=== PATIENT | female | born 1985 | race Caucasian/White ===

== ENCOUNTER 2021-07-04 07:26 | Emergency (ER) | payer SELFPAY ==
[2021-07-04 07:31] VITALS: BP 161/96; PULSE 84; RESP 18; TEMP 36.3; O2SAT 99
--- NOTE | 2021-07-04 07:49 | ED.GENADUL_ITS ---
Discharge Plan Disposition Patient Disposition: HOME Condition: Stable Discharge Details Clinical Impression: Methadone dependence Primary Care Provider: None,None ED Provider: Killian Enriquez Home Meds and New Rx's Prescriptions: Continued methadone 10 mg/mL Concentrate 80 mg PO DAILY RF: 0 Discharge Instructions Instructions: Methadone (By mouth) Additional Instructions: You were given your regular dose of your methadone today here after your dosing was confirmed by a dispensing nurse at the [facility] today. It is advised that you return to [place] tomorrow to resume your dosing on Tuesday. The methadone clinic advised that you may be able to be given your methadone dosing at local hospitals in [place] tomorrow. You can also return to the emergency department here tomorrow for your dosing. Return immediately to the emergency department if you develop any worsening or new concerning symptoms. Discharge Data Discharge Physician: Claudia Marx Medical Decision Making 35-year-old female with a history of opiate use in remission on methadone for the past 6 months presents with request for methadone dosing as she has missed her dose for the past 2 days. She states she went to the [facility] clinic but they sent her here. Her blood pressure is hypertensive but the remainder of her vitals are within normal limits. She appears somewhat restless but nontoxic. No acute findings on exam. Patient states she gets her methadone from the [facility] in [facility]. Will call there to confirm her dosing and if able, we will give her a dose now. She states she is returning to [place] tomorrow. May need to give her dose for home for tomorrow. Discussed with dispensing nurse Danial Underwood at the [facility]. He confirmed that patient is taking 80 mg of her methadone at their clinic and that her last dose was Sunday 07/01. We will give a dose of her 80 mg methadone now and discharge home. He advised that their clinic is closed tomorrow but open on Tuesday. She is advised that she can return here to the emergency department for dosing tomorrow or at a local hospital in [place] tomorrow. Advised to follow up with the primary care doctor for re-evaluation. Usual and customary return precautions given prior to discharge. HPI General Mode of arrival: ambulatory . Date/Time Provider Initiated Documentation: 07/04/21 07:36 . Limitations to Documentation: no limitations . Information obtained by: patient . HPI Narrative: Patient is a 35-year-old female with a previous history of opiate use in remission on methadone for the past 6 months who presents for request for methadone dosing as she has not had her dose for 2 days. Patient is from [place] and in the methadone clinic there. She states she had an unplanned trip here and missed her dose yesterday and today. She states since she has missed her dosing, she has felt shaking, on easiness, diarrhea, decreased appetite consistent with when she has missed her methadone dosing in the past before. She denies any other new medication, fever, chest pain, shortness of breath, abdominal pain or vomiting. She denies any other current drug use. Related Data Home Medications Medication Instructions Recorded Confirmed methadone 80 mg PO DAILY 07/04/21 07/04/21 Allergies Allergy/AdvReac Type Severity Reaction Status Date / Time No Known Allergies Allergy Unverified 07/04/21 07:36 General Stated Complaint: GenMedical MICHELLE: 4 Review of Systems All systems reviewed & are unremarkable except as noted in HPI and below Constitutional Constitutional: Reports as per HPI, Denies chills and Denies fever(s) Comments: Shakiness Eyes Eyes: Denies blurry vision ENT Ears, Nose, Mouth, and Throat: Denies dizziness, Denies sore throat and Denies throat swelling Cardiovascular Cardiovascular: Denies chest pain and Denies dyspnea Respiratory Respiratory: Denies cough and Denies dyspnea Gastrointestinal Gastrointestinal: Denies abdominal pain, Reports diarrhea and Denies vomiting Genitourinary Genitourinary: Denies hematuria and Denies dysuria Musculoskeletal Musculoskeletal: Denies back pain and Denies numbness Integumentary/Breasts Skin/Breast: Denies lesions and Denies rash Neurologic Neurologic: Denies dizziness, Denies localized weakness and Denies numbness Allergic/Immunologic Allergic/Immunologic: Denies throat swelling [facility] Medical History (Updated 07/04/21 @ 07:56 by Claudia Marx DO) Methadone dependence Narcotic abuse in remission Surgical History (Updated 07/04/21 @ 07:50 by Claudia Marx DO) No significant past surgical history Social History Smoking/Tobacco Use Status: Current every day Tobacco Type: cigarettes Smoking risk assessment performed?: Yes Alcohol Intake: current Alcohol Intake frequency: a few times a month Drug use: Occasionally Substance use type: marijuana Details: in a methadone program Exam Const General: cooperative and no acute distress Orientation: alert, awake and oriented x3 HENMT Head: normal to inspection Face and sinus: normal facial exam Eyes General: appearance normal, both eyes and all related structures Pupils: PERRL EOM: EOM intact bilaterally Neck Neck: normal visual inspection and No submandibular swelling Lymphatic: no lymphadenopathy noted Chest Chest: normal inspection of the chest and no tenderness Resp Effort & Inspection: normal respiratory effort and able to speak in complete sentences Auscultation: clear to auscultation bilaterally Cardio Rate: regular rate Rhythm: regular rhythm GI Inspection: normal to inspection Palpation: soft, not firm, not rigid and nontender Auscultation: normal bowel sounds Skin General skin exam: no rashes or lesions noted Neuro General: patient alert, patient awake and patient oriented x3 Cognition: normal cognition Speech: speech normal Motor: muscle tone normal throughout Sensory Exam: no sensory deficits noted Extrem General: normal to inspection, full ROM, capillary refill normal, no calf tenderness bilaterally and no edema Psych Appearance: grossly normal Mental Status: mental status grossly normal Speech and Movement: speech and movement normal Affect: normal affect Course Vital Signs Vital signs: Vital Signs Temperature 97.3 F L 07/04/21 07:31 Pulse 84 07/04/21 07:31 Respiratory Rate 18 07/04/21 07:31 Blood Pressure 161/96 H 07/04/21 07:31 Pulse Oximetry 99 07/04/21 07:31 Temperature 97.3 F L 07/04/21 07:31 Temperature Source Temporal Artery Scan 07/04/21 07:31 Pulse 84 07/04/21 07:31 Respiratory Rate 18 07/04/21 07:31 Respiratory Effort Non-Labored 07/04/21 07:34 Respiratory Pattern Normal 07/04/21 07:46 Blood Pressure 161/96 H 07/04/21 07:31 Pulse Oximetry 99 07/04/21 07:31 Oxygen Delivery Method Room Air 07/04/21 07:31 Oxygen Flow Rate 0 07/04/21 07:31 Sign Out Sign Out Data: Sign Out Comment: Discussed with [facility] in [place] to confirm patient's methadone dosing. If able to confirm her dosing, will order a dose for now and potentially for tomorrow if needed. If unable to confirm her dosing, will plan for discharge home for her to resume her dosing in [place] when possible. Last updated by Claudia Marx DO at 07/04/21 07:57
--- NOTE | 2021-07-04 08:11 | NUR.NOTE ---
Addendum entered by Danial Riley 07/04/21 08:13: at the phone number [phone] Original Note: i called [facility] [place] to nubia teran ed Nursing Note:
--- OUTSIDE RECORDS SUMMARY | 2021-07-04 08:12 | XMS_ITS | Encounter Summary ---
:1985 Author Organization [facility] Address [address] [place] [id number] Care Team Providers Name Role Phone Katheryn Miles APRN Primary Care Provider [phone] Encounter Details Date Type Department Care Team Description 06/19/2021 Travel Social History Tobacco Use Types Packs/Day Years Used Date Current Every Day Smoker Cigarettes 1 Smokeless Tobacco: Current User Alcohol Use Standard Drinks/Week Comments Yes 0 (1 standard drink = 0.6 oz pure alcoho l) occasional Alcohol Habits Answer Date Recorded How often do you have a drink containing alcohol? Monthly or less 11/29/2019 How many drinks containing alcohol do you have on a Not aske d typical day when you are drinking? How often do you have six or more drinks on one Not asked occasion? Sex Assigned at Date Recorded Not on file COVID-19 Exposure Response Date Recorded In the last month, have you been in contact with No / Unsure 06/19/2021 6:33 PM EDT someone who was confirmed or suspected to have Coronavirus / COVID-19? documented as of this encounter Plan of Treatment Upcoming Encounters Date Type Specialty Care Team Description 07/08/2021 Appointment Behavioral Health Francisco Torres, MS W documented as of this encounter Visit Diagnoses Not on filedocumented in this encounter Care Teams Bulk Station Operator Relationship Specialty Start Date End Date Katheryn Miles APRN PCP - General 05/30/19 [place] [address] documented as of this encounter
--- OUTSIDE RECORDS SUMMARY | 2021-07-04 08:12 | XMS_ITS | Encounter Summary ---
:1985 Author Organization [facility] Address [address] [place] [phone] Care Team Providers Name Role Phone Katheryn Miles APRN Primary Care Provider [phone] Reason for Visit Reason Comments Appointment Encounter Details Date Type Department Care Team Description 07/02/2021 Telephone [facility] Martha Jones APRN Appointment Rehabilitation at [address] [place] [id number] [facility] [place] [address] [phone] Social History Tobacco Use Types Packs/Day Years [...] / COVID-19? documented as of this encounter Miscellaneous Notes Telephone Encounter - Patricia Olivera - 07/02/2021 10:18 AM EDT 10:00am 9/2/21 video visit with Martha Jones APRN -RT middle finger abscess, hospital f/u Multiple calls were placed to the pt on the morning of her appointment- phone did not ring except onthe last attempt at 10:03am- I was unable to leave a msg because her mailbox was full. 10:15am- no show documented in this encounter Plan of Treatment Upcoming Encounters Date Type Specialty Care Team Description 07/08/2021 Appointment Behavioral Health Francisco Torres, MS W documented as of this encounter Visit Diagnoses Not on filedocumented in this encounter Additional Health Concerns Infection Onset Date Last Indicated Resolved Time MRSAComment: Body fluid 06/20/21 06/20/2021 06/22/2021 documented as of this encounter Care Teams National Insurance Officer Relationship Specialty Start Date End Date Katheryn Miles APRN PCP - General 05/30/19 [facility] [place] [phone] documented as of this encounter
--- OUTSIDE RECORDS SUMMARY | 2021-07-04 08:12 | XMS_ITS | Encounter Summary ---
:1985 Author Organization [facility] Address [address] [place] [address] Care Team Providers Name Role Phone Katheryn Miles APRN Primary Care Provider [phone] Encounter Details Date Type Department Care Team Description 01/09/2021 Hospital Encounter ANSCIARA METHADONE Erin Torres ine use disorder, moderate, dependence (HC Code) (Primary Dx); MAINTENANCE CAMRYN Singh Substance or medication-eleuterio andrew depressive disorder (HC Code); [address] [facility] Opioid use disorder, severe, dependence (HC Code); [place] [address] PTSD (post-traumatic stress disorder) [phone] Social History Tobacco Use Types Packs/Day Years [...] Assigned at Date Recorded Not on file documented as of this encounter Medications at Time of Discharge Medication Sig Dispensed Refills Start Date End Date buprenorphine-naloxone Place 1 Film under the 42 Film 0 0 11/21/2020 (SUBOXONE) 8-2 mg per tongue 2 (two) times sublingual daily. filmIndications: Opiate dependence, continuous (HC Code) buPROPion XL (WELLBUTRIN Take 1 tablet (300 mg 30 tablet 0 11/21/2020 XL) 300 mg 24 hr tablet total) by mouth every morning. fenofibric acid - Take 1 capsule (135 mg 90 capsule 0 2019 choline (TRILIPIX) 135 total) by mouth daily. mg capsule naloxone (NARCAN) 4 Use 1 spray in 1 2 each 1 12/10/2020 mg/actuation nasal spray nostril for suspected opioid overdose. May repeat in 2 minutes in other nostril with new device if minimal or no response. traZODone (DESYREL) 50 1-2 tabs at HS PRN 60 tablet 0 10/10 mg tablet insomnia documented as of this encounter Progress Notes Francisco Torres, VENEER LATHE OPERATOR - 01/09/2021 3:08 PM EST [facility] ??? Adult Outpatient Behavioral Health PROGRESS NOTE Client Name: Shakila Grove Date: 01/09/2021 Date of : 1985 Level of Care: Outpatient Length of Service: 16 mins Start Time: 1:45 pm Stop Time: 2:01 pm Type of Contact: Individual Therapy Clinician Assigned to Case: Francisco Torres LMSW Chief Complaint: Things are shifting. I haven't smoked crack in 2 weeks Presenting Problems: Client is a 33 year old, single, female living in [place], [place]. Client's chief complaint when[facility] to [facility] was I just want to stay clean and not back pedal into my use. Client reports past depressive symptoms ranging from: depressed mood, lack of interest and pleasure in activities, decreased concertation, and extreme fatigue. Client and typewriter operator automatic spoke for counseling session.She was brighter and more engaged during today's session. She is maintained on 55 mg MTD QD which she reports is comfotable, She reports not using opiatesin 2 days and has abstained from Crack for 2 weeks. UTOX upon admission and on 12/26/2020 was + for THC, MTD, OPI, & LIZZETH. Taffy Candy Maker utilized ID techniques to explore thoughts and feelings and illicit motivation for change. She discussed starting new job on Tuesday and is hopeful for the opportunity. She is still pending a referral to [facility] virtual groups for additional supports. ID techniques were usedto discuss relapse prevention techniques including personal boundaries and crafting. She reports sleeping all day, low mood, no energy. She discontinued all psych meds in October 2020 and is ambivalent about rescheduling future appointments. She denies any SI/HI/AH/VH. Mental Status Exam Attention: normal Comments: Level of Consciousness: normal Comments: Appearance: appropriately dressed Comments: Orientation: oriented to [id number] Comments: Memory Immediate memory: intact Recent memory: intact Remote memory: intact Comments: Cognition General intellect: average Abstraction: intact Visual spatial/Executive function: normal Comments: Cognitive Screens performed: Behavior: cooperative Comments: Impulse Control: good Comments: Mood: euthymic Comments: Affect: appropriate for situation Comments: Suicidality Patient admits to: Patient denies: thoughts of suicide,family history of suicide,plans for suicide,access to weapons,preoccupation with ,suicide gesture(s),suicide attempt(s) Comments: Homicidality Patient admits to: Patient denies: thoughts to harm others,having harmed others,threats to harm others,access to weapons,plans to harm others,attempts to harm others,feeling like killing someone Comments: Speech: fluent Comments: Language: adequate receptive Reading impairment: Writing impairment: Comments: Thought Process: coherent Comments: Thought Content: appropriate for situation Comments: Perception: no perceptual impairment Comments: Insight / Judgment Insight: age appropriate Judgment: mild Comments: Substance Disorder Progress Client denies substance use: no Level of Care: Outpatient (1.1) Date of last Urine Drug Screen (UDS): 01/15/2020 UDS Results: + bup, marijauana, Current signs and symptoms of Alcohol/Benzodiazepine/Barbiturate withdrawal: none Current signs and symptoms of Opioid withdrawal: none Substance abuse urges/cravings: no If yes, explain: Has client attended any self-help or substance use disorder groups since their last visit: yes Last date of illicit/non-prescribed drug/alcohol use: 11/16/2019 Drug classification: Opiates- heroin Stage of Change: contemplative Assessment and Plan Problem List ICD-10-CM 09/07/19 [facility] Opioid use disorder, severe, dependence (HC Code) F11.20 Cocaine use disorder, moderate, dependence (HC Code) 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 Psycho education provided about the risks and dangers of continued substance use including overdose and . Plan: Will benefit from daily MTD dosing, 2-4 X a month individual counseling utilizing ID and CBT techniques, continued assessment to determine the appropriateness of medication management, and coordinationof care with primary care as needed. Family Involvement: None Problem #2: r/u Bipolar r/u PTSD Area of Focus: Depression Assessment: Client reports she discontinued psychiatric medications. She denied any SI/HI/AH/VH and is not an imminent risk to herself or others. Plan: Client will meet with this typewriter operator automatic 1x weekly for individual tele counseling and biweekly med management with Suresh Baeza MD. Family Involvement: None Problem #3: Area of Focus: Assessment: Plan: Family Involvement: Problem #4: Area of Focus: Assessment: Plan: Family Involvement: Problem #5: Area of Focus: Assessment: Plan: Family Involvement: Problem #6: Area of Focus: Assessment: Plan: Family Involvement: documented in this encounter Plan of Treatment Upcoming Encounters Date Type Specialty Care Team Description 07/08/2021 Appointment Behavioral Health Francisco Torres, MS W documented as of this encounter Visit Diagnoses Diagnosis Cocaine use disorder, moderate, dependen ce (HC Code) - Primary Substance or medication-induced depressi ve disorder (HC Code) Opioid use disorder, severe, dependence (HC Code) PTSD (post-traumatic stress disorder) Posttraumatic stress disorder documented in this encounter Care Teams Business Applications Manager Relationship Specialty Start Date End Date Katheryn Miles APRN PCP - General 05/30/19 [place] [phone] documented as of this encounter
--- OUTSIDE RECORDS SUMMARY | 2021-07-04 08:12 | XMS_ITS | Encounter Summary ---
:1985 Author Organization [facility] Address [address] [place] [address] Care Team Providers Name Role Phone Katheryn Miles APRN Primary Care Provider [phone] Encounter Details Date Type Department Care Team Description 04/17/2021 Orders Only REX METHADONE Mike, Opioid typ e MAINTENANCE LEODAN Romano dependence, continuous [address] (HC Code) (Primary Dx) [place] [address] [place], [place] [phone] [id number] Social History Tobacco Use Types Packs/Day Years [...] on file documented as of this encounter Plan of Treatment Upcoming Encounters Date Type Specialty Care Team Description 07/08/2021 Appointment Behavioral Health Francisco Torres MS W documented as of this encounter Procedures Procedure Name Priority Date/Time Associated Diagnosis Comme nts TB SKIN TEST Routine 04/17/2021 9:52 AM Opioid type Results for this EDT dependence, procedure are i n the continuous (HC Code) results section. documented in this encounter Results TB Skin Test (04/17/2021 9:52 AM EDT) Pathologist Sig nature TB Skin Test Negative Negative [facility] Induration 0 mm [facility] Specimen Other Narrative This result has an attachment that is no t available. Performing Organization Address City/State/ZIP Code Phon e Number [facility] [place], [place], [facility] documented in this encounter Visit Diagnoses Diagnosis Opioid type dependence, continuous (HC C ode) - Primary Opioid type dependence, continuous documented in this encounter Care Teams Supervisor Pit [employer] Auxiliaries Relationship Specialty Start Date End Date Katheryn Miles APRN PCP - General 05/30/19 [address] [place] [phone] documented as of this encounter
--- OUTSIDE RECORDS SUMMARY | 2021-07-04 08:12 | XMS_ITS | Encounter Summary ---
:1985 Author Organization [facility] Address [address] [place] [address] Care Team Providers Name Role Phone Katheryn Miles APRN Primary Care Provider [phone] Encounter Details Date Type Department Care Team Description 03/24/2021 Scanned Document [facility] Franci Wagner MD [facility] [address] [facility] [address] [place] [phone] (Wo rk) Social History Tobacco Use Types Packs/Day Years [...] Name Priority Date/Time Associated Diagnosis Comme nts LAB SCAN Routine 03/23/2021 documented in this encounter Results Lab Scan (03/23/2021) Narrative This result has an attachment that is no t available. documented in this encounter Visit Diagnoses Not on filedocumented in this encounter Additional Health Concerns Infection Onset Date Last Indicated Resolved Time R/O COVID-19 06/20/2021 06/20/2021 06/20/2021 5:06 AM EDT MRSAComment: Body fluid 06/20/21 06/20/2021 06/22/2021 documented as of this encounter Care Teams Package Sealer Relationship Specialty Start Date End Date Katheryn Miles APRN PCP - General 05/30/19 [facility] [place] [phone] documented as of this encounter
--- OUTSIDE RECORDS SUMMARY | 2021-07-04 08:12 | XMS_ITS | Encounter Summary ---
:1985 Author Organization [facility] Address [address] [place] [address] Care Team Providers Name Role Phone Katheryn Miles APRN Primary Care Provider [phone] Encounter Details Date Type Department Care Team Description 03/03/2021 Hospital Encounter ANSCIARA METHADONE Erin Torres ine use disorder, moderate, dependence (HC Code) (Primary Dx); MAINTENANCE CAMRYN Singh Substance or medication-eleuterio andrew depressive disorder (HC Code); [address] [facility] Opioid use disorder, severe, dependence (HC Code); [place] [address] PTSD (post-traumatic stress disorder) [phone] Social History Tobacco Use Types Packs/Day Years [...] as of this encounter Progress Notes Francisco oTrres, PLANT OPERATOR HELPER - 03/03/2021 4:26 PM EDT [facility] ??? Adult Outpatient Behavioral Health PROGRESS NOTE Client Name: Shakila Grove Date: 03/03/2021 Date of : 1985 Level of Care: Outpatient Length of Service: 17 mins Start Time: 3:45 pm Stop Time: 4:02 pm Type of Contact: Individual Therapy Clinician Assigned to Case: Francisco Torres LMSW Chief Complaint: I feel a lot better this week. I started thinking about my goals and things I want to achieve and Ican't do that if I keep messing up Presenting Problems: Client is a 35 year old, single, female living in [place], [place]. Telemedicine session conducted via telephone due to medical necessity as permitted through emergencytemporary expansion of telemedicine coverage outlined by [facility]/CMAP PB 2020-09 and [id number]. Patient gave verbal consent for telemedicine. Patient location: her house My location- [facility] home office This session must be conducted by telemedicine and is medically necessary given the current COVID-19outbreak and having the patient come into the clinic for a follow-up puts the patient at risk and want to encourage social distancing. Client and repairer typewriter spoke for counseling session.She is maintained on 55 mg MTD QD which she reports is comfortable. Aneesh left 2nd job because the schedule was not feasible- her attendance for dosing has improved since. She has been using sporadically throughout the week, but reports most intense cravings are for cocaine. She did endorse coping with her mother's with increased use of heroin andcrack over the last week. Review Coordinator used MD techniques to explore thoughts and feelings and identify personal values. UTOX on 02/10/2021 was + MTD and LIZZETH, 02/02/2021 was + for MTD, OPI,, and LIZZETH. She discontinued all psych meds in October 2020 and is ambivalent about rescheduling future appointments. Client agreed to weekly counseling sessions to provide additional support. She denies any SI/HI/AH/VH. 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 Psycho education provided about the risks and dangers of continued substance use including overdose and . Plan: Will benefit from daily MTD dosing, 2-4 X a month individual counseling utilizing MD and CBT techniques, continued assessment to determine the appropriateness of medication management, and coordinationof care with primary care as needed. Family Involvement: None Problem #2: r/u Bipolar r/u PTSD Area of Focus: Depression Assessment: Client reports she discontinued psychiatric medications. She denied any SI/HI/AH/VH and is not an imminent risk to herself or others. Plan: Client will meet with this repairer typewriter 1x weekly for individual tele counseling and [...] disorder documented in this encounter Care Teams Ccnp Relationship Specialty Start Date End Date Katheryn Miles APRN PCP - General 05/30/19 [facility] [place] [id number] documented as of this encounter
--- OUTSIDE RECORDS SUMMARY | 2021-07-04 08:12 | XMS_ITS | Encounter Summary ---
:1985 Author Organization [facility] Address [address] [place] [address] Care Team Providers Name Role Phone Katheryn Miles APRN Primary Care Provider [phone] Encounter Details Date Type Department Care Team Description 03/23/2021 Hospital Encounter ANSCAIRA METHADONE Erin Torres ine use disorder, moderate, dependence (HC Code) (Primary Dx); MAINTENANCE CAMRYN Singh Substance or medication-eleuterio andrew depressive disorder (HC Code); [address] [facility] Opioid use disorder, severe, dependence (HC Code); [place] [address] PTSD (post-traumatic stress disorder) [phone] Social History Tobacco Use Types Packs/Day Years [...] 135 total) by mouth daily. mg capsule methadone (DOLOPHINE) 10 Take 65 mg by mouth 0 mg/mL every 4 (four) hours solutionIndications: as needed for pain. opioid dependence Client [facility]. Current dose is 65 mg MTD QD. naloxone (NARCAN) 4 Use 1 spray in 1 2 each 1 12/10/2020 mg/actuation nasal spray nostril for suspected opioid overdose. May repeat in 2 minutes in other nostril with new device if minimal or no response. traZODone (DESYREL) 50 1-2 tabs at HS PRN 60 tablet 0 10/10 mg tablet insomnia documented as of this encounter Progress Notes Francisco Torres MSW - 03/23/2021 3:23 PM EDT [facility] ??? Adult Outpatient Behavioral Health PROGRESS NOTE Client Name: Shakila Grove Date: 03/23/2021 Date of : 1985 Level of Care: Outpatient Length of Service: 20 mins Start Time: 12:10 pm Stop Time: 12:30 pm Type of Contact: Individual Therapy Clinician Assigned to Case: Francisco Torres LMSW Chief Complaint: Things have gotten out of control Presenting Problems: Client is a 35 year old, single, female living in [place], [place]. Client and internal communications writer met in person for counseling session. Client requested assistance with getting into detox and sober home. Trimmer [employer] provided psychoed that she would not be tapered off MTD in detox. Trimmer Meat recommended focusng on dailyu attendance as well as a potential dose increase to help with urges and cravings as well as facilitating referral to Inpatient tx. Client was agreeable to this plan. She is maintained on 55 mg MTD QD. Request to increase 10 mg to 65 mg was reviewed and approved at IT. Client reports using 2-3 bundles of heroin Daily as well as crack cocaine use. She reports she lefther job at [employer] because she can no longer manage work d/t her substance use. Trimmer [employer] offered NARCANprescription, however client declined this stating she had an RX at home. She completed [facility], and [facility] inpatient tx. Trimmer Meat will f/u with referrals and encourage client to comlete screenings as needed. UTOX on 03/09/2021 & 03/23/2021 was + for MTD and OPI. UTOX on was + MTD and LIZZETH, 02/02/2021 was + for MTD, OPI,, and LIZZETH. She discontinued all psych meds in October 2020 and is ambivalent about rescheduling future appointments. Client agreed to weekly counseling sessions to provide additional support. She denies any SI/HI/AH/VH. 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 Psycho education provided about the risks and dangers of continued substance use including overdose and . Plan: Will benefit from daily MTD dosing, 2-4 X a month individual counseling utilizing [facility] and CBT techniques, continued assessment to determine the appropriateness of medication management, and coordinationof care with primary care as needed. Family Involvement: None Problem #2: r/u Bipolar r/u PTSD Area of Focus: Depression Assessment: Client reports she discontinued psychiatric medications. She denied any SI/HI/AH/VH and is not an imminent risk to herself or others. Plan: Client will meet with this internal communications writer 1x weekly for individual tele counseling and [...] documented in this encounter Care Teams Business English Instructor Relationship Specialty Start Date End Date Katheryn Miles APRN PCP - General 05/30/19 [address] [place] [id number] documented as of this encounter
--- OUTSIDE RECORDS SUMMARY | 2021-07-04 08:12 | XMS_ITS | Encounter Summary ---
:1985 Author Organization [facility] Address [address] [place] [address] Care Team Providers Name Role Phone Katheryn Miles TOLU Primary Care Provider [phone] Reason for Visit Reason Comments Finger Swelling Finger Pain Knee Pain Cellulitis Pruritus Auth/Cert Specialty Diagnoses / Procedures Referred By Contact Refer red To Contact Surgery Diagnoses Abscess of finger of right hand Abcess in finger [facility] Ep 77 Surgery [address] [place], [place] [address] Phone: Referral ID Status Reason Start Date Expiration Date Visits Requ ested Visits Authorized [id number] 1 1 Encounter Details Date Type Department Care Team Description 06/19/2021 - Hospital Encounter EP 77 SURGERY Francisco Spencer, DO [address] [place] [id number] Abscess of finger 06/25/[address] [place] [address] Suresh Berg MD [address] [place] [id number] [place] [address] Darren Lou MD [facility] [address] [place] [phone] (Primary Dx) [phone] Social History Tobacco Use Types Packs/Day Years [...] / COVID-19? documented as of this encounter Last Filed Vital Signs Vital Sign Reading Time Taken Comments Blood Pressure 128/80 06/25/2021 8:45 AM EDT Pulse 60 06/25/2021 8:45 AM EDT Temperature 36.7 ??C (98 ??F) 06/25/2021 8:45 AM EDT Respiratory Rate 18 06/25/2021 8:45 AM EDT Oxygen Saturation 99% 06/25/2021 8:45 AM EDT Inhaled Oxygen Concentration - - Weight 81.6 kg (180 lb) 06/20/2021 4:54 PM EDT Height 160 cm (5' 3) 06/20/2021 4:54 PM EDT Body Mass Index 31.89 06/20/2021 4:54 PM EDT documented in this encounter Discharge Summaries Spenser Gutierrez PA - 06/25/2021 9:26 AM EDT Images from the original note were not included. [facility] Med/Surg Discharge Summary Patient Data: Patient Name: Shakila Grove Admit date: 06/19/2021 Age: 35 y.o. Discharge date: 06/25/2021 : 1985 Discharge Attending Physician: Darren Lou* Discharged Condition: stable PCP: Katheryn Miles APRN Disposition: Home Principal Diagnosis: Abscess of finger of right hand Issues to be Addressed Post Discharge: Issues to be Addressed Post Discharge: 1. Follow up with Dr. Lou 2. Continue Bactrim DS as directed 3. Continue to f/u methadone clinic 4. Continue dressing changes TID Pending Labs and Tests: Pending Lab Results Order Current Status Body fluid culture Preliminary result Body fluid culture Preliminary result Deep wound culture ([facility]) Preliminary result Follow-up Information: No follow-up provider specified. Future Appointments Date Time Provider Department Center 07/01/2021 11:30 AM Francisco Torres MSW [facility] Hospital Course: Hospital Course: Patient is a 35 y.o. female who was admitted to [facility] on 06/19/21 for concerns of Rlong finger abscess requiring bedside I&D. Initially given IV Vanco/Zosyn for broad spectrum coverage. Cx grew MRSA and ID consulted and advised to change to Bactrim DS on 06/23 only. Surgeon: Darren Lin* Date of Surgery: none Intra-Op Complications: n/a Acute events in the during the hospital stay: none Consults: (Consulting physician, problem, recs, f/u info) Social work for methadone hx use and advised to re-establish [facility] clinic f/u ID - see above Bladder Function Concerns: voiding DVT Prophylaxis: (Medication, duration, lab monitoring) LVX in house Home Medication Changes: (with explanation) none Weight Bearing Status: WBAT To RUE Pertinent lab findings and test results: Objective: Recent Labs Lab 06/21/21 0539 06/22/21 0043 06/23/21 0500 WBC 7.4 7.9 8.7 HGB 13.3 13.6 13.7 HCT 41.6 41.2 40.4 PLT 198 204 222 Recent Labs Lab 06/21/21 0539 06/22/21 0043 06/23/21 0500 NEUTROPHILS 56.7 63.2 61.2 Recent Labs Lab 06/21/21 0539 06/22/21 0043 06/23/21 0459 NA 141 139 141 K 4.4 4.0 4.1 CL 108* 105 106 CO2 23 23 23 BUN 10 7 10 CREATININE 0.76 0.64 0.57 GLU 100 84 92 ANIONGAP 10 11 12 Recent Labs Lab 06/21/21 0539 06/22/21 0043 06/23/21 0459 CALCIUM 8.7* 8.9 8.9 No results for input(s): ALT, AST, ALKPHOS, BILITOT, BILIDIR in the last 168 hours. Recent Labs Lab 06/20/21 0257 PTT 25.0 LABPROT 10.1 INR 0.93 Culture Information: No results for input(s): LABBLOO, LABURIN, LOWERRESPIRA in the last 168 hours. Imaging: Imaging results last 24h: No results found. Diet: Regular diet Mobility: Highest Level of mobility - ACTUAL: Mobillty Level 1, Lying in bed , AM PAC < 6 PT Disposition Recommendation: Physical Exam Discharge vitals: Temp: [97.6 ??F (36.4 ??C)-98.6 ??F (37 ??C)] 98 ??F (36.7 ??C) Pulse: [47-66] 47 Resp: [16-18] 18 BP: (102-135)/(62-87) 102/65 SpO2: [96 %-100 %] 96 % Device (Oxygen Therapy): room air Pertinent Findings of Physical Exam: Unremarkable Cognitive Status at Discharge: Baseline Alert and Oriented x 3 Discharge Physical Exam: Physical Exam Seen and evaluated on day of discharge Allergies No Known Allergies PMH PSH Past Medical History: Diagnosis Date ??? Anxiety ??? Bipolar disorder (HC Code) ??? Violent behavior No past surgical history on file. Social History Family History Social History Tobacco Use ??? Smoking status: Current Every Day Smoker Packs/day: 1.00 Types: Cigarettes ??? Smokeless tobacco: Current User Substance Use Topics ??? Alcohol use: Yes Comment: occasional Family History Problem Relation Age of Onset ??? Depression Mother ??? Bipolar disorder Mother ??? Drug abuse Sister Discharge Medications: Discharge: Current Discharge Medication List START taking these medications Details acetaminophen (TYLENOL) 325 mg tablet Take 3 tablets (975 mg total) by mouth every 6 (six) hours for7 days. Qty: 84 tablet, Refills: 0 Start date: 06/25/2021, End date: 07/02/2021 sulfamethoxazole-trimethoprim (BACTRIM DS;CO-TRIMOXAZOLE DS) 800-160 mg per tablet Take 1 tablet by mouth every 12 (twelve) hours for 8 days. Qty: 16 tablet, Refills: 0 Start date: 06/25/2021, End date: 07/03/2021 CONTINUE these medications which have NOT CHANGED Details buprenorphine-naloxone (SUBOXONE) 8-2 mg per sublingual film Place 1 Film under the tongue 2 (two) times daily. Qty: 42 Film, Refills: 0 Associated Diagnoses: Opiate dependence, continuous (HC Code) buPROPion XL (WELLBUTRIN XL) 300 mg 24 hr tablet Take 1 tablet (300 mg total) by mouth every morning. Qty: 30 tablet, Refills: 0 fenofibric acid - choline (TRILIPIX) 135 mg capsule Take 1 capsule (135 mg total) by mouth daily. Qty: 90 capsule, Refills: 0 methadone (DOLOPHINE) 10 mg/mL solution Take 65 mg by mouth every 4 (four) hours as needed for pain.Client is engaged with [facility] for treatment of OUD. Current dose is 65 mg MTD QD. naloxone (NARCAN) 4 mg/actuation nasal spray Use 1 spray in 1 nostril for suspected opioid overdose.May repeat in 2 minutes in other nostril with new device if minimal or no response. Qty: 2 each, Refills: 1 traZODone (DESYREL) 50 mg tablet 1-2 tabs at HS PRN insomnia Qty: 60 tablet, Refills: 0 Electronically Signed: Electronically signed by STACEY Lim June 25, 2021 [facility] [id number] Work Associated attestation - Darren Lou MD - 06/25/2021 2:55 PM EDT documented in this encounter Discharge Instructions InstructionsSchSpenser chiu PA - 06/25/2021 Images from the original note were not included. [facility]TH[facility]EDICS [facility] REHABIL[facility]ATION Discharge Instructions Follow up: Please follow up with [facility] follow up on 07/02 @ 10:00 am. Call [phone] withquestions. General questions: Please call if there are any questions or concerns. If you develop worsening pain, redness, numbness, weakness, coolness, bleeding, or swelling to surgical site or extremity, call our office. Call our office if you have a fever. Do not hesitate to go to the ER if you are concerned. Pain management: Please take tylenol every 6 hours as needed for pain. Do not drink alcohol when taking tylenol. Elevation of the affected extremity and ice are effective in reducing pain. Continue your methadone clinic appointments and prescriptions. Wound Care: Continue betadine/saline soaks three times a day until Tuesday Continue Bactrim as prescribed for the full course Bathing: You may shower if able to provide a water tight seal above dressing with a shower type bag.Otherwise, sponge bathe for now. Once the dressing is removed, you may shower normally. Do not scrubthe wound. Do not put any cream, lotion or ointment on incision(s). Do not soak wound (no swimming). Post-operative care: You may continue ice to operative site as needed. Continue elevation of right upper extremity as directed when in bed or chair to prevent swelling and reduce pain. Activity: You should remain weightbearing of the right upper extremity. Use assistive devices as directed as needed. Diet: You are able to resume your normal diet. We encourage plenty of fluids and protein post-operatively. Future Appointments Date Time Provider Department Center 07/01/2021 11:30 AM Francisco Torres MSW [facility] documented in this encounter Medications at Time of Discharge Medication Sig Dispensed Refills Start Date End Date buprenorphine-naloxone Place 1 Film under 42 Film 0 11/21 (SUBOXONE) 8-2 mg per the tongue 2 (two) sublingual times daily. filmIndications: Opiate dependence, continuous (HC Code) buPROPion XL (WELLBUTRIN Take 1 tablet (300 30 tablet 0 XL) 300 mg 24 hr tablet mg total) by mouth every morning. fenofibric acid - Take 1 capsule (135 90 capsule 0 0 choline (TRILIPIX) 135 mg total) by mouth mg capsule daily. methadone (DOLOPHINE) 10 Take 65 mg by mouth 0 mg/mL every 4 (four) hours solutionIndications: as needed for pain. opioid dependence Client is engaged with [facility] for treatment of OUD. Current dose is 65 mg MTD QD. naloxone (NARCAN) 4 Use 1 spray in 1 2 each 1 12/10/2020 mg/actuation nasal spray nostril for suspected opioid overdose. May repeat in 2 minutes in other nostril with new device if minimal or no response. traZODone (DESYREL) 50 1-2 tabs at HS PRN 60 tablet 0 10/10 mg tablet insomnia acetaminophen (TYLENOL) Take 3 tablets (975 84 tablet 0 07/02/2021 325 mg tablet mg total) by mouth every 6 (six) hours for 7 days. sulfamethoxazole-trimeth Take 1 tablet by 16 tablet 0 06/2507/03/2021 oprim (BACTRIM mouth every 12 DS;CO-TRIMOXAZOLE DS) (twelve) hours for 8 800-160 mg per tablet days. documented as of this encounter Progress Notes David Cazares MD - 06/25/2021 8:30 AM EDT [facility] Orthopedic HAND Progress Note Attending Provider: Darren Lou MD Injury and Date: Right long finger abscess Operative Course: Emergency room irrigation and debridement on 06/20/21 Repeat I&D R middle finger on 06/21/21 Repeat I&D R middle finger on 06/22/21 Subjective: Interim History: No events overnight, afebrile. Pain controlled. Continuing soaks. Patient reports that her finger range of motion appears better this morning. Objective: Vitals: Temp: [97.7 ??F (36.5 ??C)-98.6 ??F (37 ??C)] 98 ??F (36.7 ??C) Pulse: [47-66] 47 Resp: [18] 18 BP: (102-135)/(65-87) 102/65 SpO2: [96 %-100 %] 96 % Device (Oxygen Therapy): room air Physical Exam RUE: Dressing and packing taken down - fibrinous tissue noted. Minimal erythema. No expressed purulence. Patient left in iodine soak Sensation intact Able to flex thumb IP, index DIP, and abduct fingers Fingers WWP Able to passively flex middle finger almost to palm Labs: Lab Results Component Value Date/Time WBC 8.7 06/23/2021 05:00 AM HCT 40.4 06/23/2021 05:00 AM HCT 42.2 12/10/2020 10:42 AM CREATININE 0.57 06/23/2021 04:59 AM PTT 25.0 06/20/2021 02:57 AM INR 0.93 06/20/2021 02:57 AM CALCIUM 8.9 06/23/2021 04:59 AM Diagnostics: Radiographs of the right hand were reviewed which demonstrated obvious soft tissue swelling without any evidence of osseous involvement Micro: Culture from 06/20 growing Staph Aureus Culture from 06/22/21 growing Staph Aureus Assessment: Shakila Grove is a 35 y.o. female s/p bedside I&D of her right long finger on 06/19/21, 06/21/21, and 06/22/21. Plan: - Continue betadine/saline soaks TID as per nursing communication order. No packing required - Weight Bearing: as tolerated - Antibiotics: Bactrim DS BID x10d startin 06/24/21, ending 07/03/21 - DVT Prophylaxis: no chemical prophylaxis, SCD's, mobilization - Diet: Regular diet. - Patient encouraged to continue finger range of motion exercises - Dispo: home today, follow up with Martha Jones in 1 wk David Cazares MD Orthopaedic Surgery Orthopedic Hand Team Contact Information [facility]: -Weekday Floor Pager: -Nights/Weekends: Please check AMION for floor provider SRC: -Ortho Joints/Fracture Dynamic Role: avid Hope MD - 06/24/2021 8:52 AM EDT Images from the original note were not included. [facility] Orthopedic HAND Progress Note Attending Provider: Darren Lou MD Injury and Date: Right long finger abscess Operative Course: Emergency room irrigation and debridement on 06/20/21 Repeat I&D R middle finger on 06/21/21 Repeat I&D R middle finger on 06/22/21 Subjective: Interim History: No events overnight, afebrile. Pain controlled. Continues TID soaks. ID recommendations appreciated, plan to switch to PO bactrim today Objective: Vitals: Temp: [97.5 ??F (36.4 ??C)-97.9 ??F (36.6 ??C)] 97.6 ??F (36.4 ??C) Pulse: [55-63] 62 Resp: [16-18] 16 BP: (109-134)/(62-82) 109/62 SpO2: [98 %-100 %] 99 % Device (Oxygen Therapy): room air Physical Exam RUE: Dressing and packing taken down - fibrinous tissue noted. Improved erythema. No expressed purulence. Wound re-packed Sensation intact Able to flex thumb IP, index DIP, and abduct fingers Fingers WWP Unable to flex middle finger DIP 2/2 pain/swelling Labs: Lab Results Component Value Date/Time WBC 8.7 06/23/2021 05:00 AM HCT 40.4 06/23/2021 05:00 AM HCT 42.2 12/10/2020 10:42 AM CREATININE 0.57 06/23/2021 04:59 AM PTT 25.0 06/20/2021 02:57 AM INR 0.93 06/20/2021 02:57 AM CALCIUM 8.9 06/23/2021 04:59 AM Diagnostics: Radiographs of the right hand were reviewed which demonstrated obvious soft tissue swelling without any evidence of osseous involvement Micro: Culture from 06/20 growing Staph Aureus Culture from 06/22/21 growing Staph Aureus Assessment: Shakila Grove is a 35 y.o. female s/p bedside I&D of her right long finger on 06/19/21, 06/21/21, and 06/22/21. Plan: - Continue betadine/saline soaks TID as per nursing communication order. Dressing change with 1/4 iodoform packing. - Weight Bearing: as tolerated - Antibiotics: Bactrim DS BID x10d startin 06/24/21, ending 07/03/21 - DVT Prophylaxis: no chemical prophylaxis, SCD's, mobilization - Diet: Regular diet. - Patient encouraged to continue finger range of motion exercises - Dispo pending continued clinical improvement on oral abx, and resumption of outpt methadone David Cazares MD Orthopaedic Surgery Orthopedic Hand Team Contact Information [facility]: -Weekday Floor Pager: -Nights/Weekends: Please check AMION for floor provider SRC: -Ortho Joints/Fracture Dynamic Role: Ray catherine MD - 06/23/2021 8:46 AM EDT Images from the original note were not included. INFECTIOUS DISEASES INPATIENT PROGRESS NOTE Patient's name:Shakila Grove [id number] Referring provider: Attending Provider: Darren Lou MD [phone] Date Admitted: 06/19/2021 Today's date: 06/23/2021 Subjective / Recent Events: -Remains afebrile, WBC wnl -Yesterday ID team able to express more puss from wound and later in the evening ortho team also didfurther bedside I&D -Reports finger feels slightly better today, no other systemic complaints Antimicrobials: Vanc 06/19 - present Zosyn 06/19 - 06/20 Past Medical History, Family History, Social History , Immunization, Allergies: have all been reviewed and remains unchanged Physical Examination: Vitals: 06/23/21 0757 BP: 99/62 Pulse: (!) 52 Resp: 18 Temp: 98 ??F (36.7 ??C) Temp (24hrs), Av.1 ??F (36.7 ??C), Min:97.9 ??F (36.6 ??C), Max:98.4 ??F (36.9 ??C) General: no distress, resting comfortably in room HEENT: NC/AT, PERRL, EOMI, MMM CV: RRR, no m/r/g Pulm: breathing comfortably on RA Abd: soft, non-tender, non-distended Ext: no edema, warm and well perfused Skin: R third finger with lesion on medial side of finger between DIP and PIP joint with packing in place and improvement in surrounding erythema and swelling compared to yesterday (see chart images aswell). R knee 1.5cm diameter lesion with whitish coloration of skin centrally and mild surrounding erythema tender to palpation now with small amount of purulent drainage today. Neuro: A&O x 3, no focal deficits noted Laboratory tests: Lab Results Component Value Date WBC 8.7 06/23/2021 HGB 13.7 06/23/2021 HCT 40.4 06/23/2021 MCV 88.4 06/23/2021 PLT 222 06/23/2021 Lab Results Component Value Date CREATININE 0.57 06/23/2021 BUN 10 06/23/2021 NA 141 06/23/2021 K 4.1 06/23/2021 CL 106 06/23/2021 CO2 23 06/23/2021 Estimated Creatinine Clearance: 95 mL/min (by C-G formula based on SCr of 0.57 mg/dL). Lab Results Component Value Date ALT 17 12/10/2020 AST 12 12/10/2020 ALKPHOS 66 12/10/2020 BILITOT 0.3 12/10/2020 Microbiology: Body fluid/deep wound cultures 06/22 I&D Gram stain 3+ WBC, 2+ GPC in clusters, cx pending 06/20 I&D 1) gram stain 3+ WBC, 3+ GPC in cluster; cx with 2+ MRSA (R-cefazolin, erythromycin, oxacillin; S-clinda, doxy, gent, rifampin, bactrim, vanco) 2) gram stain 3+ WBC, 1+ GPC in cluster; cx with 2+ MRSA (R-cefazolin, erythromycin, oxacillin; S-clinda, doxy, gent, rifampin, bactrim, vanco) Radiology: 06/20 US R finger IMPRESSION: A 1.2 x 0.3 x 0.7 cm complex collection presumably an abscess that overlies the third middle phalanxon the palmar surface. Diffuse cellulitis of the third phalanx extends more proximally into the dorsum and palmar aspect of the hand. Questionable extension into the extensors and flexors of the third phalanx causing tenosynovitis of the third digit. ?? 06/19 XR R finger IMPRESSION: Notable soft tissue swelling at the mid third digit without evidence for osteomyelitis. Assessment: Patient is a 35 yo F w/ PMHx of PSUD (on methadone, no IVDU), preDM (A1c 6 12/20), who presented to the ED 06/19 w/ complaint of R middle finger swelling, now s/p I&D by ortho 06/20, 06/21, and 06/22 with initial cx growing MRSA. ?? Syndrome is MRSA SSTI in R digit in an a patient w/ no significant risk factors or signs of systemicinfection. Suspect her knee lesion (improved s/p home drainage) was similar abscess and that patientacquired infection iso skin breakdown while working on her house. Today is D5 of vancomycin and with additional expression of puss and further I&D yesterday there appears to be improvement in exam - appreciate ortho team working to help further address persistent foci of infection. Would continue on IV vanc through today and hopefully plan to switch to PO bactrim tomorrow. Recommendations: -Continue IV vanc through today -Can plan to switch to PO bactrim for additional 10d of PO abx starting tomorrow (06/24 - 07/03) -ID will sign off but please call back with any questions or concerns Thank you for this consultation. Please consider these recommendations as preliminary until this note has an attending attestation, or a separate attending note is available. Please contact the on-call ID fellow if after 5:00 pm. Ray Pitts MD PHD Fellow, Section of Infectious Diseases [facility] Associated attestation - Marvin Faust MD - 06/23/2021 11:36 PM EDT Patient was seen and examined independently by me. The details of the H&P and A&P are accurately reflected in Dr. Pitts's note with the following modifications: 1. Source control achieved with I&D last night and markedly better today. 2. Can change vanco to po TMP/SMZ DS BID for 10 days more 3. ID will sign off but should new issues arise, please reconsult us 4. Please coordinate methadone reinstatement with her program before she is discharged and she should receive her dose before she leaves.Andrew Bledsoe MD - 06/23/2021 6:41 AM EDT Images from the original note were not included. [facility] Orthopedic HAND Progress Note Attending Provider: Darren Lou MD Injury and Date: Right long finger abscess Operative Course: Emergency room irrigation and debridement on 06/20/21 Repeat I&D R middle finger on 06/21/21 Repeat I&D R middle finger on 06/22/21 Subjective: Interim History: Cultures growing MRSA, continues on vanc. Pain well controlled while at rest. Denies numbness/tingling. Objective: Vitals: Temp: [97.3 ??F (36.3 ??C)-98.4 ??F (36.9 ??C)] 98.1 ??F (36.7 ??C) Pulse: [54-67] 62 Resp: [16-20] 16 BP: (111-127)/(65-79) 119/68 SpO2: [98 %-100 %] 98 % Device (Oxygen Therapy): room air Physical Exam RUE: Dressing and packing taken down - granulation tissue noted. No expressed purulence. Sensation intact Able to flex thumb IP, index DIP, and abduct fingers Fingers WWP Unable to flex middle finger DIP 2/2 pain Labs: Lab Results Component Value Date/Time WBC 8.7 06/23/2021 05:00 AM HCT 40.4 06/23/2021 05:00 AM HCT 42.2 12/10/2020 10:42 AM CREATININE 0.57 06/23/2021 04:59 AM PTT 25.0 06/20/2021 02:57 AM INR 0.93 06/20/2021 02:57 AM CALCIUM 8.9 06/23/2021 04:59 AM Diagnostics: Radiographs of the right hand were reviewed which demonstrated obvious soft tissue swelling without any evidence of osseous involvement Micro: Culture from 06/20 growing Staph Aureus Assessment: Shakila Grove is a 35 y.o. female s/p bedside I&D of her right long finger on 06/19/21, 06/21/21, and 06/22/21. At this time, appears source control has been achieved. Plan: - Continue betadine/saline soaks TID as per nursing communication order. Dressing change with 1/4 iodoform packing. - Weight Bearing: as tolerated - Antibiotics: IV Vanc, appreciate ID recs - DVT Prophylaxis: no chemical prophylaxis, SCD's, mobilization - Diet: Regular diet. - Patient encouraged to continue finger range of motion exercises - Dispo pending clinical improvement of her long finger infection with IV antibiotics Andrew Bledsoe MD Orthopaedic Surgery Orthopedic Hand Team Contact Information [facility]: -Weekday Floor Pager: -Nights/Weekends: Please check AMION for floor provider SRC: -Ortho Joints/Fracture Dynamic Role: David Regan MD - 06/22/2021 8:12 PM EDT Images from the original note were not included. [facility] Orthopedic HAND Progress Note Attending Provider: Darren Lou MD Injury and Date: Right long finger abscess Operative Course: Emergency room irrigation and debridement on 06/20/21 Repeat I&D R middle finger on 06/21/21 Repeat I&D R middle finger on 06/22/21 Subjective: Interim History: Cultures growing MRSA, continues on vanc. Pain controlled, but present Objective: Vitals: Temp: [97.3 ??F (36.3 ??C)-98.7 ??F (37.1 ??C)] 98.4 ??F (36.9 ??C) Pulse: [54-67] 62 Resp: [16-20] 16 BP: (115-127)/(71-79) 115/72 SpO2: [94 %-100 %] 98 % Device (Oxygen Therapy): room air Physical Exam RUE: Dressing removed. Purulent collection Sensation intact Able to flex thumb IP, index DIP, and abduct fingers Fingers WWP Unable to flex middle finger DIP Labs: Lab Results Component Value Date/Time WBC 7.9 06/22/2021 12:43 AM HCT 41.2 06/22/2021 12:43 AM HCT 42.2 12/10/2020 10:42 AM CREATININE 0.64 06/22/2021 12:43 AM PTT 25.0 06/20/2021 02:57 AM INR 0.93 06/20/2021 02:57 AM CALCIUM 8.9 06/22/2021 12:43 AM Diagnostics: Radiographs of the right hand were reviewed which demonstrated obvious soft tissue swelling without any evidence of osseous involvement Micro: Culture from 06/20 growing Staph Aureus Procedure: After explanation of the risks and benefits, patient agreed to undergo another repeat bedside I and D. Patient was premedicated with 2.5 milligrams of IV Valium. A digital block of 5 milliliters of one-to-one 1% lidocaine and 0.25% Marcaine was given at the baseof the middle finger. After appropriate anesthesia was achieved, the finger was prepped with betadine and the old I&D site was probed with a clamp through skin, down to the flexor tendon sheath. Purulence was able to expressed. This was cultured. The wound bed was then explored with a cotton-tipped swab and loculations broken up. It was then noticed that there was a space between the epidermis and the dermis where more purulencewas collecting. The blister was deroofed. The I&D site was packed with iodoform and then dressed with a soft dressing. Assessment: Shakila Grove is a 35 y.o. female s/p bedside I&D of her right long finger on 06/19/21, 06/21/21, and 06/22/21 Plan: - Continue betadine/saline soaks TID as per nursing communication order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 11.0 x [facility] DE[facility] OF Count) 1000/??L LABORATORY MEDICINE Neutrophils 56.7 37.0 - 84.0 % [facility] DE[facility] LABORATORY MEDICINE Lymphocytes 34.5 8.0 - 49.0 % [facility] DE[facility] OF LABORATORY MEDICINE Absolute Lymphocyte 2.6 1.0 - 4.0 x [facility] DEPART[facility] OF Count 1000/??L LABORATORY MEDICINE Monocytes 7.2 4.0 - 15.0 % [facility] DEPART[facility] OF LABORATORY MEDICINE Monocyte Absolute Count 0.5 0.0 - 2.0 x [facility] DEPART[facility] O F 1000/??L LABORATORY MEDICINE Eosinophils 1.1 0.0 - 7.0 % [facility] DE[facility] OF LABORATORY MEDICINE Eosinophil Absolute 0.1 0.0 - 1.0 x [facility] DEPART[facility] OF Count 1000/??L LABORATORY MEDICINE Basophil 0.4 0.0 - 4.0 % [facility] DEPART[facility] OF LABORATORY MEDICINE Basophil Absolute Count 0.0 0.0 - 0.0 x [facility] DEPART[facility] O F 1000/??L LABORATORY MEDICINE Immature Granulocytes 0.1 0.0 - 3.0 % [facility] DEPART[facility] OF LABORATORY MEDICINE Absolute Immature 0.0 0.0 - 0.3 x [facility] DE[facility] OF Granulocyte Count 1000/??L LABORATORY MEDICINE nRBC 0.0 0.0 - 1.0 % [facility] DEPART[facility] OF LABORATORY MEDICINE Absolute nRBC 0.0 0.0 - 0.0 x [facility] DEPART[facility] OF 1000/??L LABORATORY MEDICINE MCH 29.4 27.0 - 31.0 pg [facility] DEPART[facility] OF LABORATORY MEDICINE Specimen Blood Performing Organization Address [facility] Phon e Number [facility] DEPART[facility] OF LABORATORY [address] [place] [address] MEDICINE Basic metabolic panel (06/21/2021 5:39 AM EDT) Sodium 141 136 - 144 [facility] DEPART[facility] OF mmol/L LABORATORY MEDICINE Potassium 4.4 3.3 - 5.1 [facility] DEPART[facility] OF mmol/L LABORATORY MEDICINE Chloride 108 (H) 98 - 107 [facility] DE[facility] OF mmol/L LABORATORY MEDICINE CO2 23 20 - 30 [facility] DE[facility] OF mmol/L LABORATORY MEDICINE Anion Gap 10 7 - 17 [facility] DE[facility] OF LABORATORY MEDICINE Glucose 100 70 - 100 [facility] DE[facility] OF mg/dL LABORATORY MEDICINE BUN 10 6 - 20 mg/dL [facility] DE[facility] LABORATORY MEDICINE Creatinine 0.76 0.40 - 1.30 [facility] DE[facility] OF mg/dL LABORATORY MEDICINE Calcium 8.7 (L) 8.8 - 10.2 [facility] DE[facility] OF mg/dL LABORATORY MEDICINE BUN/Creatinine 13.2 8.0 - 23.0 [facility] DE[facility] OF Ratio LABORATORY MEDICINE eGFR (Afr Amer) >60 >60 [facility] DE[facility] OF Comment: mL/min/1.73m2 LABORATORY Values under 60mL/min/1.73m2 may indicate CKD if noted for ?? MEDICINE more than 3 months. eGFR is only valid if creatinine i s at steady state. eGFR (NON >60 >60 [facility] DEPART[facility] OF -Turkish) Comment: mL/min/1.73m2 LABORATORY Values under 60mL/min/1.73m2 may indicate CKD if noted for ?? MEDICINE more than 3 months. eGFR is only valid if creatinine i s at steady state. Specimen Blood Performing Organization Address [facility]/ZIP Code Phon e Number [facility] DEPART[facility] OF LABORATORY [address] [place] [address] 06 MEDICINE Urine microscopic ([facility] ) (06/21/2021 1:16 AM EDT) Pathologist Sig nature Epithelial Cells Many (A) None-Few /LPF [facility] DEPART[facility] OF LABORATORY MEDICINE Hyaline Casts, UA 3 0 - 3 /LPF [facility] DE[facility] LABORATORY MEDICINE Bacteria, UA None None-Few /HPF [facility] DE[facility] LABORATORY MEDICINE WBC/HPF, UA 7 (H) 0 - 5 /HPF [facility] DE[facility] OF LABORATORY MEDICINE RBC/HPF, UA 3 (H) 0 - 2 /HPF [facility] DE[facility] OF LABORATORY MEDICINE Specimen Urine Performing Organization Address [facility] Phon e Number [facility] DEPART[facility] OF LABORATORY [address] [place] [address] MEDICINE Urine macroscopic (06/21/2021 1:16 AM EDT) Clarity, UA Clear Clear [facility] DE[facility] OF LABORATORY MEDICINE Color, UA Yellow Yellow [facility] DE[facility] OF LABORATORY MEDICINE Specific Vaughn, 1.031 (H) 1.005 - 1.030 [facility] DE[facility] OF UA LABORATORY MEDICINE pH, UA 8.0 (H) 5.5 - 7.5 [facility] DE[facility] OF LABORATORY MEDICINE Protein, UA Trace Negative-Trace [facility] DE[facility] OF LABORATORY MEDICINE Glucose, UA Negative Negative [facility] DE[facility] OF LABORATORY MEDICINE Ketones, UA Negative Negative [facility] DE[facility] OF LABORATORY MEDICINE Blood, UA Negative Negative [facility] DE[facility] OF LABORATORY MEDICINE Bilirubin, UA Negative Negative [facility] DE[facility] OF LABORATORY MEDICINE Leukocytes, UA Positive (A) Negative [facility] DEPART[facility] OF LABORATORY MEDICINE Nitrite, UA Negative Negative [facility] DEPART[facility] OF LABORATORY MEDICINE Urobilinogen, UA <2.0 <=2.0 EU/dL [facility] DEPART[facility] OF LABORATORY MEDICINE Specimen Urine Performing Organization Address [facility] e Number [facility] DEPARTMENT OF LABORATORY [address] [place] [address] MEDICINE Body fluid culture (06/20/2021 3:40 AM EDT) Body Fluid Abnormal Stain (A) [facility] DEPART[facility] OF Culture LABORATORY MEDICINE Body Fluid 2+ Staphylococcus [facility] DEPART[facility] OF Culture aureus (A)Comment: LABORATORY METHICILLIN RESISTANT MEDICINE STAPHYLOCOCCUS AUREUS (MRSA) Gram Stain 3+ WBC's (A) [facility] DEPARTMENT OF (Primary) LABORATORY MEDICINE Gram Stain 1+ Gram positive cocci [facility] DEPARTMENT OF (Primary) in clusters (A) LABORATORY MEDICINE Specimen Culture - Fluid sample (specimen) Narrative [facility] DE[facility] LABORATORY MEDICINE - 06/25/2021 8:18 AM EDT Body Fluid cultures are always evaluated for the presence of Pseudomonas aeruginosa, Beta hemolytic Streptococci, Staphylococ cus aureus and Bacteroides fragilis. These organisms are reported when found. Organism Antibiotic Method Susceptibility Staphylococcus aureus Cefazolin Resistant Staphylococcus aureus Clindamycin Susceptibl e Staphylococcus aureus Doxycycline Susceptibl e Staphylococcus aureus Erythromycin Resistant Staphylococcus aureus Gentamicin Susceptibl e Staphylococcus aureus Oxacillin Resistant Comment: Methicillin Resista nt Staphylococcus aureus Staphylococcus aureus Rifampin Susceptibl e Staphylococcus aureus Trimethoprim + Sulfamethoxazole Susceptible Staphylococcus aureus Vancomycin Susceptibl e Performing Organization Address [facility] Phon e Number [facility] DEPARTMENT OF LABORATORY [address] [place] [address] MEDICINE PT/INR and PTT (06/20/2021 2:57 AM EDT) Prothrombin Time 10.1 9.6 - 12.3 [facility] DEPART[facility] seconds OF LABORATORY MEDICINE INR 0.93 0.88 - 1.15 [facility] DE[facility] 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 M EDICINE THERAPEUTIC RANGE: 2.0-3.0 PTT 25.0Comment: 23.9 - 29.9 [facility] DEPARTMENT THERAPEUTIC RANGE: seconds OF LABORATORY 45-80 seconds MEDICINE Specimen Blood Narrative [facility] DEPART[facility] OF LABORATORY MEDICINE - 06/20/2021 3:30 AM EDT As of May 13, 2020 this assay is being performed on new instrumentation. Please note that the reference ranges may have centeno ed. Performing Organization Address [facility] Phon e Number [facility] DEPARTMENT OF LABORATORY [address] [place] [address] MEDICINE SARS CoV-2 (COVID-19) RNA - [facility] ([facility]) (06/20/2021 2:55 AM EDT) SARS-CoV-2 RNA Negative Negative [facility] DEPARTMENT OF (COVID-19) Comment: LABORATORY SARS-CoV-2 target nucleic acids not detected. MEDICINE Fact Sheet for Healthcare Providers: https://www.fda.gov/media/286442/download Fact Sheet for Patients: https://www.fda.gov/media/127150/download Test performed using a GeneXpert real-time RT-PCR damian dsouza Test performance has not bee n evaluated in asymptomatic patients. Test ordering and result interpretation is at the discretion of the ordering provider. Specimen Viral - Nasopharyngeal structure (body s tructure) Performing Organization Address [facility] Phon e Number [facility] DEPARTMENT OF LABORATORY [address] [place] [address] MEDICINE Body fluid culture (06/20/2021 2:55 AM EDT) Body Fluid Abnormal Stain (A) [facility] DEPART[facility] OF Culture LABORATORY MEDICINE Body Fluid 2+ Staphylococcus [facility] DEPART[facility] OF Culture aureus (A)Comment: LABORATORY METHICILLIN RESISTANT MEDICINE STAPHYLOCOCCUS AUREUS (MRSA) Gram Stain 3+ Gram positive cocci [facility] DEPARTMENT OF (Primary) in clusters (A) LABORATORY MEDICINE Gram Stain 3+ WBC's (A) [facility] DEPART[facility] OF (Primary) LABORATORY MEDICINE Specimen Culture - Joint sample (specimen) Narrative [facility] DEPART[facility] OF LABORATORY MEDICINE - 06/25/2021 8:40 AM EDT Body Fluid cultures are always evaluated for the presence of Pseudomonas aeruginosa, Beta hemolytic Streptococci, Staphylococ cus aureus and Bacteroides fragilis. These organisms are reported when found. Organism Antibiotic Method Susceptibility Staphylococcus aureus Cefazolin Resistant Staphylococcus aureus Clindamycin Susceptibl e Staphylococcus aureus Doxycycline Susceptibl e Staphylococcus aureus Erythromycin Resistant Staphylococcus aureus Gentamicin Susceptibl e Staphylococcus aureus Oxacillin Resistant Comment: Methicillin Resista nt Staphylococcus aureus Staphylococcus aureus Rifampin Susceptibl e Staphylococcus aureus Trimethoprim + Sulfamethoxazole Susceptible Staphylococcus aureus Vancomycin Susceptibl e Performing Organization Address [facility]/ZIP [facility] Phon e Number [facility] DEPARTMENT OF LABORATORY [address] [place] [address] MEDICINE Type and Rh recheck ([facility]) (06/20/2021 2:54 AM EDT) Pathologist Sig nature ABORH Recheck Interpretation O POS [facility] BA NK Specimen Blood Performing Organization Address [facility] Phon e Number [facility] [address] [place] [phone] Basic metabolic panel (06/20/2021 2:54 AM EDT) Sodium 143 136 - 144 [facility] DEPARTMENT OF mmol/L LABORATORY MEDICINE Potassium 4.4Comment: Sample 3.3 - 5.1 [facility] DEPARTMENT OF slightly mmol/L LABORATORY hemolyzed. Results MEDICINE may be falsely elevated due to hemolysis. Chloride 106 98 - 107 [facility] DEPART[facility] OF mmol/L LABORATORY MEDICINE CO2 27 20 - 30 [facility] DEPART[facility] OF mmol/L LABORATORY MEDICINE Anion Gap 10 7 - 17 [facility] DEPART[facility] OF LABORATORY MEDICINE Glucose 105 (H) 70 - 100 [facility] DEPART[facility] OF mg/dL LABORATORY MEDICINE BUN 12 6 - 20 mg/dL [facility] DEPART[facility] OF LABORATORY MEDICINE Creatinine 0.72 0.40 - 1.30 [facility] DEPART[facility] OF mg/dL LABORATORY MEDICINE Calcium 8.8 8.8 - 10.2 [facility] DEPART[facility] OF mg/dL LABORATORY MEDICINE BUN/Creatinine 16.7 8.0 - 23.0 [facility] DEPART[facility] OF Ratio LABORATORY MEDICINE eGFR (Afr Amer) >60 >60 [facility] DEPART[facility] OF Comment: mL/min/1.73m2 LABORATORY Values under 60mL/min/1.73m2 may indicate CKD if noted for ?? MEDICINE more than 3 months. eGFR is only valid if creatinine i s at steady state. eGFR (NON >60 >60 [facility] DEPARTMENT OF -Turkish) Comment: mL/min/1.73m2 LABORATORY Values under 60mL/min/1.73m2 may indicate CKD if noted for ?? MEDICINE more than 3 months. eGFR is only valid if creatinine i s at steady state. Specimen Blood Performing Organization Address City/[facility]/ZIP Code Phon e Number [facility] DEPART[facility] OF LABORATORY [address] [place] [address] MEDICINE Type and screen (06/20/2021 2:54 AM EDT) Pathologist Sig nature ABO Grouping O [facility] Rh Type POS [facility] Antibody Screen NEG [facility] Specimen Blood Performing Organization Address [facility] Phon e Number [facility] [address] [place] [phone] US Soft Tissue/MSK Finger Right (06/20/2021 12:19 AM EDT) Anatomical Region Laterality Modality Hand, Wrist, Ortho Finger Right Ultrasound Specimen Impressions [facility] - 06/20/2021 3:31 AM EDT A 1.2 x 0.3 x 0.7 cm complex collection presumably an abscess that overlies the third middle phalanx on the palmar surface. Diffuse cellulitis of the third phalanx extends more proximally into the dorsu m and palmar aspect of the hand. Questio nable extension into the extensors and flexors of the third phalanx causing tenosynovitis of the third digit. Findings were communicated to Dr. Berg at 12:42 AM. Report Initiated By: ??Katrin Weiner MD A [id number] communication for a Green message has been documented in the [employer] Findings application ??on 06/20/2021 2:[address] Suresh Berg is not in the [employer] findings system. Reported And Signed By: Reji mendoza MD Narrative [facility] - 06/20/2021 3:31 AM EDT US SOFT TISSUE/MSK FINGER RIGHT HISTORY:Abscess evaluation COMPARISON:No prior imaging for comparis on TECHNIQUE: Limited grayscale and color d oppler evaluation of the right third finger was performed. FINDINGS: There is a complex collection in the sof t tissues overlying the third middle phalanx on the palmar surface measuring 1.2 x 0.3 x 0.7 cm. There is diffuse soft tissue swelling/subcutaneous edema with alicia rounding hyperemia of the entire third p halanx with more proximal extension into the dorsum and palmar surface of the hand around the tendons. Small ill-defined fluid collection overl ies the dorsal aspect of the third proximal interphalangeal joint. Questionable extension into the extensors and flexors of the third phalanx with inability to flex and extend the finger. Procedure Note Reji James MD - 06/20/2021 US SOFT TISSUE/MSK FINGER RIGHT HISTORY:Abscess evaluation COMPARISON:No prior imaging for comparis on TECHNIQUE: Limited grayscale and color d oppler evaluation of the right third finger was performed. FINDINGS: There is a complex collection in the sof t tissues overlying the third middle phalanx on the palmar surface measuring 1.2 x 0.3 x 0.7 cm. There is diffuse soft tissue swelling/subcutaneous edema with surrounding hyperemia of the entire third phalanx wi th more proximal extension into the dorsum and palmar surface of the hand around the tendons. Small ill-defined fluid collection overl ies the dorsal aspect of the third proximal interphalangeal joint. Questionable extension into the extensors and flexors of the third phalanx with inability to flex and extend the finger. IMPRESSION: A 1.2 x 0.3 x 0.7 cm complex collection presumably an abscess that overlies the third middle phalanx on the palmar surface. Diffuse cellulitis of the third phalanx extends more proximally into the dorsum and palmar aspect of the hand. Questiona ble extension into the extensors and flexors of the third phalanx causing tenosynovitis of the third digit. Findings were communicated to Dr. Berg at 12:42 AM. Report Initiated By: Jackson Jean A [id number] communication for a Green message has been documented in the [employer] Findings application on 06/20/2021 2:[address] Suresh Berg is not in the [employer] system. Reported And Signed By: Reji mendoza MD Performing Organization Address [facility] Phon e Number [facility] Finger 2V Right (06/19/2021 8:51 PM EDT) Anatomical Region Laterality Modality Hand, Wrist, Ortho Finger Right Digital Radiog cole Specimen Impressions [facility] - 06/19/2021 9:00 PM EDT Notable soft tissue swelling at the mid third digit without evidence for osteomyelitis. Report Initiated By: ??Darrion Winslow MD Reported And Signed By: Jackson Jara Narrative [facility] - 06/19/2021 9:00 PM EDT STUDY: XR FINGER RIGHT MINIMUM 2 VW INDICATION: Right middle finger abscess COMPARISON: None FINDINGS: No acute fracture or dislocation. No romain dence of degenerative changes. There is a notable soft tissue swelling at the ventromedial aspect of the mid third digit. No evidence of erosive changes or periosteal reaction. Procedure Note Sylvester Golden MD - 06/19/2021 STUDY: XR FINGER RIGHT MINIMUM 2 VW INDICATION: Right middle finger abscess COMPARISON: None FINDINGS: No acute fracture or dislocation. No romain dence of degenerative changes. There is a notable soft tissue swelling at the ventromedial aspect of the mid third digit. No evidence of erosive changes or periosteal reaction. IMPRESSION: Notable soft tissue swelling at the mid third digit without evidence for osteomyelitis. Report Initiated By: Darrion Winslow MD Reported And Signed By: Jackson Jara Performing Organization Address [facility] Phon e Number [facility] C-reactive protein (06/19/2021 8:27 PM EDT) CRP, High 12.9 (H) See comment [facility] DE[facility] Sensitivity Comment: mg/L OF LABORATORY hs-CRP Risk According to AHA/CDC Guidelines (mg/L): MEDICINE <1.0 Lower relative cardiovascular risk. 1.0-3.0 Average relative cardiovascular risk. 3.1-10.0 Higher relative cardiovascular risk. Consider retesting in 1 to 2 weeks to exclude a benign??transie nt elevation in the baseline CRP value secondary to infec tion or inflammation. >10.0 Persistent elevation, upon retesting, may be ass ociated with infection and inflammation. Specimen Blood Performing Organization Address [facility] Phon e Number [facility] DEPARTMENT OF LABORATORY [address] [place] [address] MEDICINE Sedimentation rate (ESR) (06/19/2021 7:52 PM EDT) Pathologist Sig nature Sedimentation Rate (ESR) 14 0 - 20 mm/hr [facility] DEPART[facility] OF LABORATORY MEDICINE Specimen Blood Performing Organization Address [facility] Phon e Number [facility] DEPARTMENT OF LABORATORY [address] [place] [address] MEDICINE CBC WITH AUTO DIFFERENTIAL (06/19/2021 7:52 PM EDT) Pathologist Sig nature WBC 9.8 4.0 - 10.0 [facility] DEPART[facility] OF x1000/??L LABORATORY MEDICINE RBC 4.3 3.8 - 5.9 M/??L [facility] DEPART[facility] OF LABORATORY MEDICINE Hemoglobin 13.1 12.0 - 18.0 [facility] DEPART[facility] OF g/dL LABORATORY MEDICINE Hematocrit 40.0 37.0 - 52.0 % [facility] DEPARTMENT OF LABORATORY MEDICINE MCV 93.2 78.0 - 94.0 fL [facility] DEPART[facility] OF LABORATORY MEDICINE MCHC 32.8 31.0 - 36.0 [facility] DEPART[facility] OF g/dL LABORATORY MEDICINE RDW-CV 12.5 11.5 - 14.5 % [facility] DEPART[facility] OF LABORATORY MEDICINE Platelets 251 140 - 440 [facility] DEPARTMENT OF x1000/??L LABORATORY MEDICINE MPV 10.3 6.0 - 11.0 fL [facility] DEPART[facility] OF LABORATORY MEDICINE ANC (Abs Neutrophil 6.0 1.0 - 11.0 x [facility] DEPART[facility] OF Count) 1000/??L LABORATORY MEDICINE Neutrophils 60.9 37.0 - 84.0 % [facility] DE[facility] LABORATORY MEDICINE Lymphocytes 28.4 8.0 - 49.0 % [facility] DEPART[facility] LABORATORY MEDICINE Absolute Lymphocyte 2.8 1.0 - 4.0 x [facility] DEPARTMENT OF Count 1000/??L LABORATORY MEDICINE Monocytes 9.2 4.0 - 15.0 % [facility] DEPART[facility] OF LABORATORY MEDICINE Monocyte Absolute Count 0.9 0.0 - 2.0 x [facility] DEPARTMENT O F 1000/??L LABORATORY MEDICINE Eosinophils 0.9 0.0 - 7.0 % [facility] DEPART[facility] OF LABORATORY MEDICINE Eosinophil Absolute 0.1 0.0 - 1.0 x [facility] DEPARTMENT OF Count 1000/??L LABORATORY MEDICINE Basophil 0.4 0.0 - 4.0 % [facility] DEPART[facility] OF LABORATORY MEDICINE Basophil Absolute Count 0.0 0.0 - 0.0 x [facility] DEPARTMENT O F 1000/??L LABORATORY MEDICINE Immature Granulocytes 0.2 0.0 - 3.0 % [facility] DEPART[facility] OF LABORATORY MEDICINE Absolute Immature 0.0 0.0 - 0.3 x [facility] DEPARTMENT OF Granulocyte Count 1000/??L LABORATORY MEDICINE nRBC 0.0 0.0 - 1.0 % [facility] DEPART[facility] OF LABORATORY MEDICINE Absolute nRBC 0.0 0.0 - 0.0 x [facility] DEPARTMENT OF 1000/??L LABORATORY MEDICINE MCH 30.5 27.0 - 31.0 pg [facility] DEPART[facility] OF LABORATORY MEDICINE Specimen Blood Performing Organization Address City/State/ZIP Code Phon e Number [facility] DE[facility] OF [facility]ATORY [address] [place] [phone] MEDICINE documented in this encounter Visit Diagnoses Diagnosis Abscess of finger of right hand - Primar y Cellulitis and abscess of finger, unspec ified documented in this encounter Admitting Diagnoses Diagnosis Abscess of finger of right hand Cellulitis and abscess of finger, unspec ified documented in this encounter Administered Medications Inactive Administered Medications - up to 3 most recent administrations Medication Order MAR Action Action Date Dose Rate Site acetaminophen (TYLENOL) tablet Given 06/25/2021 6:06 AM EDT 975 mg 975 mg 975 mg, Oral, Every 6 Hours Scheduled, First dose on 06/20/21 at 0600, First dose now or start 6 hours after last dose of acetaminophen. Given 06/24/2021 9:52 PM EDT 975 mg Given 06/24/2021 5:28 AM EDT 975 mg bisacodyL (DULCOLAX) EC tablet 5 mg 5 mg, Oral, DAILY PRN, constipation, Con stipation, Starting on 06/20/21 at 0345, First line therapy Common Side Effects: Diarrhea, disc omfort, cramps. bisacodyL (DULCOLAX) suppository 10 mg 10 mg, Rectal, DAILY PRN, constipation, Starting on 06/20/21 at 0345, Give only if inadequate response to first line the rapy after 24 hours. Please use first line therapy before going to second line therapy. Common Si de Effects: Diarrhea, discomfort, cramps. diazePAM (VALIUM) syringe 2.5 mg Given 06/20/2021 1:42 AM EDT 2.5 mg 2.5 mg, IV Push, ONCE, On 06/20/21 at 0145, For 1 dose, Maximum IV Push dose is 10 mg. If ordered IV Push, administer undiluted at a rate of 5mg over 1 minute and inject dose directly into a large vein or IV set port closest to the patient to reduce the chance of precipitation and thrombosis. RECOMMENDED monitoring for FIRST Dose or Doses of 10 mg includes baseline BP and Respiratory Monitoring, repeated Q15 minutes x 1. No monitoring recommended for maintenance use or subsequent doses less than 10 mg. Additional RECOMMENDED monitoring for all doses includes Level of Sedation and Peripheral IV Assessment. If extravasation occurs, contact Provider and see Extravasation Order Set. Irritant. Common Side Effects: Confusion, dizziness, drowsiness and mood changes. Contains propylene glycol, which may be associated with toxicity when administered at high doses or for prolonged periods. diazePAM (VALIUM) syringe 2.5 mg Given 06/22/2021 7:35 PM EDT 2.5 mg 2.5 mg, IV Push, ONCE, On 06/22/21 at 1930, For 1 dose, Maximum IV Push dose is 10 mg. If ordered IV Push, administer undiluted at a rate of 5mg over 1 minute and inject dose directly into a large vein or IV set port closest to the patient to reduce the chance of precipitation and thrombosis. RECOMMENDED monitoring for FIRST Dose or Doses of 10 mg includes baseline BP and Respiratory Monitoring, repeated Q15 minutes x 1. No monitoring recommended for maintenance use or subsequent doses less than 10 mg. Additional RECOMMENDED monitoring for all doses includes Level of Sedation and Peripheral IV Assessment. If extravasation occurs, contact Provider and see Extravasation Order Set. Irritant. Common Side Effects: Confusion, dizziness, drowsiness and mood changes. Contains propylene glycol, which may be associated with toxicity when administered at high doses or for prolonged periods. diazePAM (VALIUM) tablet 2 mg 2 mg, Oral, EVERY 6 HOURS PRN, other, Muscle Spasm, St arting on 06/20/21 at 0345, Common Side Effects: Confusion, dizziness, drows iness, mood changes. diazePAM (VALIUM) tablet 2 mg Given 06/21/2021 8:18 AM EDT 2 mg 2 mg, Oral, ONCE, On 06/21/21 at 0815, For 1 dose, Common Side Effects: Confusion, dizziness, drowsiness, mood changes. enoxaparin (LOVENOX) syringe 40 mg Given 06/24/2021 9:22 AM EDT 40 mg 40 mg, Subcutaneous, Every 24 Hours Scheduled (Daily), First dose on 06/21/21 at 0900, This medication may be automatically dose adjusted by the Pharmacists for patients with BMI > 40 kg/m2 according the VTE Prophylaxis for BMI > 40 Protocol Contraindicated with epidural use. Common Side Effects: Bruising, minor and major bleeding. Given 06/23/2021 9:01 AM EDT 40 mg Given 06/22/2021 8:33 AM EDT 40 mg ketorolac (TORadol) injection 7.5 mg Given 06/19/2021 7:51 PM EDT 7.5 mg 7.5 mg, IV Push, ONCE, On Tue06/19/21 at 1945, For 1 dose, Maximum IV Push dose of 30 mg. If ordered IV Push, administer undiluted over 15 seconds. Common Side Effects include stomach upset, dizziness and increased bleeding risk. Maximum duration of therapy is 5 days. This drug may be automatically dose-adjusted by the Pharmacist according to the patient's renal function as approved by the [facility] Formulary Integration Committee (FIC). lidocaine (PF) 20 mg/mL (2 %) Given by Other. 06/20/2021 1:12 AM EDT 10 mLs injection Soln 10 mL 10 mL, Intradermal, ONCE, On 06/20/21 at 0115, For 1 dose lidocaine 10 mg/mL (1 %) injection Given by Other. 06/21/2021 8 :52 AM EDT 15 mLs 15 mL 15 mL, Intradermal, ONCE, On Tue06/21/21 at 0815, For 1 dose methadone (DOLOPHINE) tablet 65 mg Given 06/23/2021 5:48 AM EDT 65 mg 65 mg, Oral, Daily @0600, First dose on Tue06/20/21 at 1600, For 7 days Given 06/22/2021 6:14 AM EDT 65 mg Given 06/21/2021 6:11 AM EDT 65 mg methadone (DOLOPHINE) tablet 70 mg Given 06/25/2021 6:06 AM EDT 70 mg 70 mg, Oral, Daily @0600, First dose (after last modification) on Tue06/24/21 at 0600, For 5 doses Given 06/24/2021 5:28 AM EDT 70 mg morphine injection 2 mg 2 mg, IV Push, EVERY 3 HOURS PRN, other, 1st line chema kthrough, Starting on 06/20/21 at 0345, For 5 days 11 hours, If patient unabl e to take PO or has inadequate response within 1 hour to oral pain medicat ion. morphine injection 4 mg 4 mg, IV Push, EVERY 3 HOURS PRN, other, 2nd line chema kthrough, Starting on 06/20/21 at 0345, For 5 days 11 hours, If patient unabl e to take PO or has inadequate response within 1 hour to oral pain medicat ion. ondansetron (ZOFRAN-ODT) disintegrating tablet 4 mg 4 mg, Oral, EVERY 6 HOURS PRN, nausea or vomiting, Starting on 06/20/21 at 0345, First line therapy. Common Side Effects: Lightheaded, stomach upset, headache. oxyCODONE (ROXICODONE) Immediate Release tablet 10 mg 10 mg, Oral, EVERY 4 HOURS PRN, moderate Pain (PIS 4-6), Starting on 06/20/21 at 0345, For 5 days 11 hours, Common Side Effects: Confus ion, nausea, vomiting, drowsiness, constipation, breathing problems. oxyCODONE (ROXICODONE) Immediate Release Given 06/21/2021 9:30 AM EDT 15 mg tablet 15 mg 15 mg, Oral, EVERY 4 HOURS PRN, severe Pain (PIS 7-10), Starting on 06/20/21 at 0345, For 5 days 11 hours, Common Side Effects: Confusion, nausea, vomiting, drowsiness, constipation, breathing problems. oxyCODONE (ROXICODONE) Immediate Release tablet 5 mg 5 mg, Oral, EVERY 4 HOURS PRN, mild Pain (PIS 1-3), St arting on 06/20/21 at 0345, For 5 days 11 hours, Common Side Effects: Confus ion, nausea, vomiting, drowsiness, constipation, breathing problems. piperacillin-tazobactam (ZOSYN) 4.5 New Bag 06/21/2021 4:06 A M 4.5 g 33.3 mL/hr g in sodium chloride 0.9% 100 mL EDT (mini-bag plus) 4.5 g, Intravenous, at 33.3 mL/hr, EVERY 6 HOURS, First dose on 06/20/21 at 0245, For 72 hours, For all hospitals ([facility], [facility], [place], [facility] & [place]): Infuse over 180 minutes. For the ED, OR and Outpatient Clinics: Infuse over 30 minutes. For patients receiving Hemodialysis, please review HD schedule and administer the next scheduled dose post-HD on HD days only, as appropriate. Irritant; Activate prior to use via mini-bag plus. This drug may be automatically dose-adjusted by the Pharmacist according to the patient's renal function as approved by the [facility] Formulary Integration Committee (FIC)., Reason for Use (RFU): Empiric Treatment of Pseudomonal Infection in a Mixed Infection with Gram negative organisms, S. aureus, and anaerobes. New Bag 06/20/2021 9:48 PM EDT 4.5 g 33.3 mL/hr New Bag 06/20/2021 3:39 PM EDT 4.5 g 33.3 mL/hr polyethylene glycol (MIRALAX) packet 17 g Given 06/21/2021 8:43 AM EDT 17 g 17 g, Oral, Daily, First dose on 06/20/21 at 0900, Hold for loose stools. Dissolve in 4-8 oz of water, juice, soda, coffee or tea. Common Side Effects: Diarrhea, discomfort, cramps. senna-docusate (SENNA-PLUS) 8.6-50 mg per Given 2020 8:44 AM EDT 2 tablets tablet 2 tablet 2 tablet, Oral, 2 Times Daily Scheduled, First dose on 06/20/21 at 0900, Hold for loose stools. Do not administer with mineral oil. Common Side Effects: Diarrhea, discomfort, cramps. sodium chloride 0.9 % flush 3 mL Given 06/25/2021 6:06 AM EDT 3 mLs 3 mL, IV Push, EVERY 8 HOURS, First dose on 06/20/21 at 0400, For PIV lock flush only. Given 06/24/2021 9:55 PM EDT 3 mLs Given 06/24/2021 5:30 AM EDT 3 mLs sodium chloride 0.9 % flush 3 mL 3 mL, IV Push, PRN for Line Care, other, PIV Line Care, Starting on Tue06/20/21 at 0345 sodium chloride 0.9% infusion New Bag 06/20/2021 4:05 AM EDT 75 mL/hr 75 mL/hr 75 mL/hr, Intravenous, at 75 mL/hr, CONTINUOUS, Starting on 06/20/21 at 0400 sulfamethoxazole-trimethoprim (BACTRIM Given 06/25/2021 9:27 AM EDT 1 tablet DS;CO-TRIMOXAZOLE DS) 800-160 mg per tablet 1 tablet 1 tablet, Oral, Every 12 Hours Scheduled, First dose on Tue06/24/21 at 1000, This drug may be automatically dose-adjusted by the Pharmacist according to the patient? s renal function as approved by the [facility] Formulary Integration Committee (FIC)., Reason for Use (RFU): Other (specify), Other reason: MRSA soft tissue infection, per ID Given 06/24/2021 9:52 PM EDT 1 tablet Given 06/24/2021 10:47 AM EDT 1 tablet vancomycin (VANCOCIN) 1 g in sodium New Bag 06/20/2021 5:37 A M EDT 1 g 250 mL/hr chloride 0.9% 250 mL IVPB (vialmate) 1 g, Intravenous, Administer over 60 Minutes, ONCE, On 06/20/21 at 0530, For 1 dose, This drug may be automatically dose-adjusted by the Pharmacist according to the patient? s renal function as approved by the [facility] Formulary Integration Committee (FIC). Irritant; Activate prior to use via vialmate. Common Side Effects: Stomach upset, hypotension, flushing, rash., Reason for Use (RFU): Treatment of Suspected Infection vancomycin (VANCOCIN) 1 g in sodium New Bag 06/23/2021 9:01 A M EDT 1 g 250 mL/hr chloride 0.9% 250 mL IVPB (vialmate) 1 g, Intravenous, Administer over 60 Minutes, EVERY 12 HOURS, First dose on Tue06/21/21 at 0815, This drug may be automatically dose-adjusted by the Pharmacist according to the patient? s renal function as approved by the [facility] Formulary Integration Committee (FIC). Irritant; Activate prior to use via vialmate. Common Side Effects: Stomach upset, hypotension, flushing, rash., Indication for use: Other (specify):, Other reason: infection of finger, gram positive cocci New Bag 06/22/2021 8:35 PM EDT 1 g 250 mL/hr New Bag 06/22/2021 8:32 AM EDT 1 g 250 mL/hr vancomycin (VANCOCIN) 1 g in sodium New Bag 06/24/2021 2:12 A M EDT 1 g 250 mL/hr chloride 0.9% 250 mL IVPB (vialmate) 1 g, Intravenous, Administer over 60 Minutes, EVERY 8 HOURS, First dose (after last modification) on Tue06/23/21 at 1700, This drug may be automatically dose-adjusted by the Pharmacist according to the patient? s renal function as approved by the [facility] Formulary Integration Committee (FIC). Irritant; Activate prior to use via vialmate. Common Side Effects: Stomach upset, hypotension, flushing, rash., Indication for use: Other (specify):, Other reason: infection of finger, gram positive cocci New Bag 06/23/2021 5:15 PM EDT 1 g 250 mL/hr documented in this encounter Active and Recently Administered Medications Times are shown in EDT. Scheduled Medication Order 06/23/2021 06/24/2021 06/25/2021 acetaminophen (TYLENOL) tablet 975 mg 0130 (Not Given - Provider: Aleks Valdes RN - Reason: Patient Sleeping)0547 (Given - Provider: Aleks Valdes RN)1148 (Given - Provider: Marquez Cross, ANITA)1716 (Given - Provider: Marquez Cross RN) 0000 (Not Given - Provider: Sobeida Marsh RN - Reason: Patient Sleeping)0528 (Given - Provider: Sobeida Marsh, RN)1200 (Not Given - Provider: Geraldine Flannery RN - Reason: Patient Sleeping)2152 (Given - Provider: Sobeida Marsh, ANITA) 0007 (Not Given - Provider: Sobeida Marsh RN - Reason: Patient Sleeping)0606 (Given - Provider: Sobeida Marsh RN) 975 mg, Oral, Every 6 Hours Scheduled, F irst dose on 06/20/21 at 0600, First dose now or start 6 hours after last dose of acetaminophen. enoxaparin (LOVENOX) syringe 40 mg 09 (Given - Provider: Whitney Cross RN) 09 (Given - Provider: Geraldine Flannery, ANIAT) 0927 (Refused - Provider: Jennifer Lind RN) 40 mg, Subcutaneous, Every 24 Hours Sche duled (Daily), First dose on Tue06/21/21 at 0900, This medication may be automatically dose adjusted by the Pharmacists for patients with BMI > 40 kg/m2 accord ing the VTE Prophylaxis for BMI > 40 Pro tocol Contraindicated with epidural use. Common Side Effects: Bruising, minor and major bleeding. methadone (DOLOPHINE) tablet 65 mg (CANCELED) 0548 (Gi bo - Provider: Aleks Valdes RN) 65 mg, Oral, Daily @0600, First dose on Tue06/20/21 at 1600, For 7 days methadone (DOLOPHINE) tablet 70 mg 0528 (Given - Provider: Sobeida Marsh RN) 06 (Given - Provider: Sobeida Marsh RN) 70 mg, Oral, Daily @0600, First dose (af ter last modification) on Tue06/24/21 at 0600, For 5 doses polyethylene glycol (MIRALAX) packet 17 g 0908 (Refuse d - Provider: Marquez Cross RN) 0923 (Refused - Provider: Geraldine Flannery, ANITA) 0916 ( Refused - Provider: Jennifer Lind, RN) 17 g, Oral, Daily, First dose on 06/01 at 0900, Hold for loose stools. Dissolve in 4-8 oz of water, juice, soda, coffee or tea. Common Side Effects: Diarrhea, discomfort, cramps. senna-docusate (SENNA-PLUS) 8.6-50 mg per tablet 2 tab let 0908 (Refused - Provider: Marquez Cross RN)2119 (Refused - Provider: Sobeida Marsh RN) 0923 (Refused - Provider: Geraldine Flannery RN)215 (Refused - Provider: Sobeida Marsh RN) 0917 (Refused - Provider: Jennifer Lind , ANITA) 2 tablet, Oral, 2 Times Daily Scheduled, First dose on Tue06/20/21 at 0900, Hold for loose stools. Do not administer with mineral oil. Common Side Effects: Diarrhea, discomfort, cramps. sodium chloride 0.9 % flush 3 mL 0508 (Canceled Entry - Provider: Aleks Valdes RN)1149 (Given - Provider: Marquez Cross RN)2120 (Canceled Entry - Provider: Sobeida Marsh RN) 0530 (Given - Provider: Sobeida Marsh RN) 1200 (Due)2154 (Given - Provider: Sobeida Marsh RN) 0606 (Given - Provider: Sobeida Marsh RN) 3 mL, IV Push, EVERY 8 HOURS, First dose on 06/20/21 at 0400, For PIV lock flush only. sulfamethoxazole-trimethoprim (BACTRIM D S;CO-TRIMOXAZOLE DS) 800-160 mg per tablet 1 tablet 1047 (Given - Provider: Bethany Flannery RN)2152 (Given - Provider: Sobeida Marsh RN) 0927 (Given - Provider: Jennifer Lind, ANITA) 1 tablet, Oral, Every 12 Hours Scheduled , First dose on Tue06/24/21 at 1000, This drug may be automatically dose-adjusted by the Pharmacist according to the patient? s renal function as approved by the [facility] Formulary Integration Committee ( FIC)., Reason for Use (RFU): Other (specify), Other reason: MRSA soft tissue infection, per ID vancomycin (VANCOCIN) 1 g in sodium chlo ride 0.9% 250 mL IVPB (vialmate) (CANCELED) 0901 (New Bag - Provider: Marquez Cross RN) 1 g, Intravenous, Administer over 60 Min utes, EVERY 12 HOURS, First dose on Tue06/21/21 at 0815, This drug may be automatically dose-adjusted by the Pharmacist according to the patient? s renal functio n as approved by the [facility] Formulary Int egration Committee (FIC). Irritant; Activate prior to use via vialmate. Common Side Effects: Stomach upset, hypotension, flushing, rash., Indication for use: Othe r (specify):, Other reason: infection of finger, gram positive c occi vancomycin (VANCOCIN) 1 g in sodium chlo ride 0.9% 250 mL IVPB (vialmate) (CANCELED) 1715 (New Bag - Provider: Marquez Cross RN) 0212 (N ew Bag - Provider: Sobeida Marsh RN)0916 (Not Given - Provider: Geraldine Flannery RN - Reason: Med D/C'ed) 1 g, Intravenous, Administer over 60 Min utes, EVERY 8 HOURS, First dose (after last modification) on Tue06/23/21 at 1700, This drug may be automatically dose- adjusted by the Pharmacist according to the patient? s renal function as approved by the [facility] Formulary Integration Committee (FIC). Irritant; Activate prior to use via vialmate. Common Side Effects: Stomach upset, hypotension, flushing, rash., Indication for use: Other (specify):, O ther reason: infection of finger, gram positive cocci PRN Medication Order 06/23/2021 06/24/2021 06/25/2021 bisacodyL (DULCOLAX) EC tablet 5 mg 5 mg, Oral, DAILY PRN, constipation, Con stipation, Starting on 06/20/21 at 0345, First line therapy Common Side Effects: Diarrhea, discomfort, cramps. bisacodyL (DULCOLAX) suppository 10 mg 10 mg, Rectal, DAILY PRN, constipation, Starting on 06/20/21 at 0345, Give only if inadequate response to first line therapy after 24 hours. Please use first line therapy before going to second line therapy. Common Side Effects: Diarrhea, discomfort, cramps. diazePAM (VALIUM) tablet 2 mg 2 mg, Oral, EVERY 6 HOURS PRN, other, Mu scle Spasm, Starting on 06/20/21 at 0345, Common Side Effects: Confusion, dizziness, drowsiness, mood changes. morphine injection 2 mg 2 mg, IV Push, EVERY 3 HOURS PRN, other, 1st line breakthrough, Starting on 06/20/21 at 0345, For 5 days 11 hours, If patient unable to take PO or has inadequate response within 1 hour to oral pain medication. morphine injection 4 mg 4 mg, IV Push, EVERY 3 HOURS PRN, other, 2nd line breakthrough, Starting on 06/20/21 at 0345, For 5 days 11 hours, If patient unable to take PO or has inadequate response within 1 hour to oral pain medication. ondansetron (ZOFRAN-ODT) disintegrating tablet 4 mg 4 mg, Oral, EVERY 6 HOURS PRN, nausea or vomiting, Starting on 06/20/21 at 0345, First line therapy. Common Side Effects: Lightheaded, stomach upset, headache. oxyCODONE (ROXICODONE) Immediate Release tablet 10 mg 10 mg, Oral, EVERY 4 HOURS PRN, moderate Pain (PIS 4-6), Starting on 06/20/21 at 0345, For 5 days 11 hours, Common Side Effects: Confusion, nausea, vomiting, drowsiness, constipation, breathing problems. oxyCODONE (ROXICODONE) Immediate Release tablet 15 mg 15 mg, Oral, EVERY 4 HOURS PRN, severe P ain (PIS 7-10), Starting on 06/20/21 at 0345, For 5 days 11 hours, Common Side Effects: Confusion, nausea, vomiting, drowsiness, constipation, breathing problems. oxyCODONE (ROXICODONE) Immediate Release tablet 5 mg 5 mg, Oral, EVERY 4 HOURS PRN, mild Pain (PIS 1-3), Starting on 06/20/21 at 0345, For 5 days 11 hours, Common Side Effects: Confusion, nausea, vomiting, drowsiness, constipation, breathing problems. sodium chloride 0.9 % flush 3 mL 3 mL, IV Push, PRN for Line Care, other, PIV Line Care, Starting on 06/20/21 at 0345 documented in this encounter Additional Health Concerns Infection Onset Date Last Indicated Resolved Time R/O COVID-19 06/20/2021 06/20/2021 06/20/2021 5:06 AM EDT MRSAComment: Body fluid 06/20/21 06/20/2021 06/22/2021 documented as of this encounter Care Teams Youth Pastor Relationship Specialty Start Date End Date Katheryn Miles APRN PCP - General 05/30/19 [address] [place] [id number] documented as of this encounter
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
--- OUTSIDE RECORDS SUMMARY | 2021-07-04 08:12 | XMS_ITS | Encounter Summary ---
:1985 Author Organization [facility] Address [address] [place] [address] Care Team Providers Name Role Phone Katheryn Miles APRN Primary Care Provider [phone] Encounter Details Date Type Department Care Team Description 07/01/2021 Hospital Encounter SHIVA METHADONE Carolyn Torres how MAINTENANCE CAMRYN Singh [address] [place] [address] Social History Tobacco Use Types Packs/Day Years [...] documented as of this encounter Care Teams Rn Urgent Care Relationship Specialty Start Date End Date Katheryn Miles APRN PCP - General 05/30/19 [address] [place] [id number] documented as of this encounter
--- OUTSIDE RECORDS SUMMARY | 2021-07-04 08:12 | XMS_ITS | Encounter Summary ---
:1985 Author Organization [facility] Address [address] [place] [address] Care Team Providers Name Role Phone Katheryn Miles APRN Primary Care Provider [phone] Encounter Details Date Type Department Care Team Description 03/23/2021 Plan of Care Documentation VINA METHADONE MAINTENANCE [address] [place], [place] [address] Social History Tobacco Use Types Packs/Day Years [...] on file documented as of this encounter Miscellaneous Notes [facility] - Francisco Torres MSW - 03/25/2021 2:54 PM EDT [facility] Interdisciplinary Treatment Plan Methadone Maintenance Treatment Program Shakila Grove [id number] 03/09/2021- 06/09/2021 Overview: Current Diagnosis: Problem List ICD-10-CM 09/07/19 [facility] OP Opioid use disorder, severe, dependence (HC Code) F11.20 Cocaine use disorder, moderate, dependence (HC Code) 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 Barriers I sometimes self sabotage. Recovery Capital: Family SupportsPersonal StrengthsFuture Goals Active Multidisciplinary Problems: Interdisciplinary Problem List Mood Alteration: Active Descriptive Behaviors: Substance induced mood disorder: client reports racing thoughts, moving fromone task to another quickly, depressive symptoms for weeks at a time, client reports current not struggling. Has discontinued psychiatric medications. Will encourage compliance with treatment plan Review: Client discussed the of her mother on 01/31/2021 from heart failure. Client reports I feel at peace she's not suffering anymore. I???ve been preparing for this. She did endorse that it triggered increased use of heroin and crack. She discontinued all psych meds in October 2020 and is ambivalent about rescheduling future appointments. She denies any SI/HI/AH/VH. Will benefit from daily MTD dosing, 2-4 X a month individual counseling utilizing TN and CBT techniques, continued encouragement to reengage in medication management, and coordination of care with primary care as needed. Patient Stated Goal(s): I don't want to get back to that sad, depressed, hopeless place. Usp Goal(s): Medication compliance/adjustments and Demonstrated use of positive/appropriate coping mechanisms Target Date: 06/09/2021 Short Term Goal/Objective: Patient will identify triggers related to altered mood as evidenced by??? Learning two ways to manage frustration in a positive manner. Target Date: 06/09/2021 Status: Minimal progress Short Term Goal/Objective: Patient will return to baseline level of functioning as evidenced by??? Assessing personal risk traits and resiliency traits and discuss the role each plays in coping with daily stresses during the time between therapy sessions. Target Date: 06/09/2021 Status: Minimal progress Intervention/Frequency: Provide counseling and emotional support 1x weekly therapy session - utilizing, TN, CBT, and continued attendance in pathways to recovery. Intervention/Frequency: Facilitate goal setting 1x weekly therapy session utilizing, TN, CBT, medication management and continued attendance in pathways to recovery once available ?? Substance Use / Abuse: Active Descriptive Behaviors: Polysubstance use d/o sx: daily cravings, triggers come frequently, inability to refuse the substance, poor distress tolerance- using drugs as stress relief technique, Relapsed Decmeber 2020. Was not transparent about substance use. Will benefit from HLOC and MMTP at this time. Review: Client has mad minimal progress during the 01/07/2021- 03/09/2021 review period. She attended 6 out of 9 individual counseling sessions with this ticket writer. Client discontinued mediation management and is currently ambivalent about rescheduling. Client transferred to [facility] from [facility] on 12/10/2020fter she stopped taking her Suboxone 8-2 mg BID in September 2020 and had been using 1-3 bundles a day, route smoking. Client also endorses smoking crack cocaine and methadone off the street. She discussed strained relationship children in foster care as a contributing to her relapse. Client requestedassistance with getting into detox and sober home. Furniture Rental Consultant provided psychoed that she would not be tap ered off MTD in detox. Furniture Rental Consultant recommended focusing on daily attendance as well as a potential dose increase to help with urges and cravings as well as facilitating referral to Inpatient tx. Client was agreeable to this plan. She is maintained on 55 mg MTD QD. Request to increase 10 mg to 65 mg was reviewed and approved at [facility]. Client reports using 2-3 bundles of heroin daily as well as crack cocaine use. She reports she left her job at [employer] because she can no longer manage work d/t her substanceuse. Furniture Rental Consultant offered NARCAN prescription, however client declined this stating she had an RX at home.She completed [facility], and [facility] inpatient tx. Furniture Rental Consultant will f/u with referrals and encourage client to complete screenings as needed. UTOX on 03/09/2021 & 03/23/2021 was + for MTD and OPI. UTOX on 02/10/2021 was + MTD and LIZZETH, 02/02/2021 was + for MTD, OPI,, and LIZZETH. Patient Stated Goal(s): I need help.. I stopped taking the suboxone. Usp Goal(s): Re-establish sobriety, identify connection between psychiatric symptoms and substance abuse and develop an active relapse prevention plan and Demonstrated use of positive/appropriate coping mechanisms Target Date: 06/09/2021 Short Term Goal/Objective: Patient will report a decrease in substance use as evidenced by ??? Client will learn min. two ways to regulate her distress (or mood, or anxiety, or depression) without useof mood-altering substances . Target Date: 06/09/2021 Status: minimal progress Short Term Goal/Objective: Patient will increase awareness of triggers/cravings to substance use asevidenced by ??? keeping a personal cravings/ triggers journal- documenting each craving and scaling0-10 how severe. Target Date: 06/09/2021 Status: Minimal progress Intervention/Frequency: Encourage identification/practice/mastery of adaptive coping skills 1x weekly therapy session utilizing, TN, CBT, medication management and continued attendance in pathways torecovery once available Intervention/Frequency: Facilitate patient identifying triggers/cravings 1x weekly therapy session utilizing, TN, CBT, medication management and continued attendance in pathways to recovery once available ?? Other Assessed Need(s) (Medical/Psychosocial) (List any other assessed needs that were identified in the assessment of the patient that are NOT included in the Interdisciplinary Problem List noted above. Indicate what the INTERVENTION, REFERRAL or DEFERRAL will be for each of the other Assessed Needs identified (e.g. name of PCP, other medical provider, therapist, community resource, etc.) Problems with primary support: Family members actively using Intervene: address in individual counseling Medical / Psychological Assessments: Medications: Assessment of medication side effects and/or adverse medication reactions is ongoing Current Outpatient Medications Medication Sig ??? methadone (DOLOPHINE) 10 mg/mL solution Take 65 mg by mouth every 4 (four) hours as needed for pain. Client is engaged with [facility] for treatment of OUD. Current dose is 65 mg MTD QD. ??? buPROPion XL (WELLBUTRIN XL) 300 mg 24 hr tablet Take 1 tablet (300 mg total) by mouth every morning. (Patient not taking: Reported on 03/25/2021) ??? fenofibric acid - choline (TRILIPIX) 135 mg capsule Take 1 capsule (135 mg total) by mouth daily. ??? naloxone (NARCAN) 4 mg/actuation nasal spray Use 1 spray in 1 nostril for suspected opioid overdose. May repeat in 2 minutes in other nostril with new device if minimal or no response. ??? traZODone (DESYREL) 50 mg tablet 1-2 tabs at HS PRN insomnia (Patient not taking: Reported on 03/25/2021) No current facility-administered medications for this encounter. Consult / Referral Made: Primary Care Provider and INpatient SA tx Discharge Planning: Anticipated Discharge Date: TBD Anticipated Discharge Level of Care/ Disposition: To be determined Plan: Will benefit from daily MTD dosing, 2-4 X a month individual counseling utilizing TN and CBT techniques, continued assessment to determine the appropriateness of medication management, and coordination of care with primary care as needed. Refer to [facility] as needed. MD Certification: Services in treatment plan are reasonable and necessary for the diagnosis and treatment of the itemson the problem list to improve functioning. Frequency of the services is appropriate. I certify the medical necessity of this treatment plan until the next treatment plan review. documented in this encounter Plan of Treatment Upcoming Encounters Date Type Specialty Care Team Description 07/08/2021 Appointment Behavioral Health Francisco Torres, MS W documented as of this encounter Visit Diagnoses Not on filedocumented in this encounter Care Teams P D Driver Relationship Specialty Start Date End Date Katheryn Miles APRN PCP - General 05/30/19 Replaced by [facility] [place] [phone] documented as of this encounter
--- OUTSIDE RECORDS SUMMARY | 2021-07-04 08:12 | XMS_ITS | Encounter Summary ---
:1985 Author Organization [facility] Address [address] [place] [address] Care Team Providers Name Role Phone Katheryn Miles APRN Primary Care Provider [phone] Encounter Details Date Type Department Care Team Description 04/17/2021 Hospital Encounter OMAHA METHADONE David Slade id use disorder, MAINTENANCE Lizbet severe, dependence [address] [facility] (HC Code) [place] [address] Social History Tobacco Use Types Packs/Day Years [...] pain. opioid dependence Client is engaged with [facility] for treatment of OUD. Current [...] tablet insomnia documented as of this encounter Miscellaneous Notes Office/Comment Note - Lizbet Slade - 04/17/2021 8:30 AM EDT This commercial loan underwriter contacted client over the phone due to Covid-19. The client verbally consented over the phone. This commercial loan underwriter spoke to client about setting up veyo ride for Tuesday04/20/2021 at 11 am. Client reported that due to the mileage she needs a provider to do it. This commercial loan underwriter assisted client with setting up an urgent ride for Tuesday04/20/2021 for 11 am. The client will be picked up at 9 am for a 11 am appointment time. The confirmation number is [id number]. This commercial loan underwriter provided contact information so client can reach this commercial loan underwriter as needed for additional supports. documented in this encounter Plan of Treatment Upcoming Encounters Date Type Specialty Care Team Description 07/08/2021 Appointment Behavioral Health Francisco Torres, MS W documented as of this encounter Visit Diagnoses Diagnosis Opioid use disorder, severe, dependence (HC Code) documented in this encounter Care Teams Silo Tender Relationship Specialty Start Date End Date Katheryn Miles APRN PCP - General 05/30/19 [facility] [place] [phone] documented as of this encounter
--- OUTSIDE RECORDS SUMMARY | 2021-07-04 08:12 | XMS_ITS | Encounter Summary ---
:1985 Author Organization [facility] Address [address] [place] [address] Care Team Providers Name Role Phone Katheryn Miles APRN Primary Care Provider [phone] Reason for Visit Reason Comments Appointment COVID vaccine Encounter Details Date Type Department Care Team Description 04/21/2021 Telephone [facility] Katheryn Miles Ap pointment ([facility] MAINTENANCE MECHANIC HELPER vaccine) MEDICINE [address] [place] [address] [address] [place] [phone] (Wo rk) Social History Tobacco Use Types [...] this encounter Miscellaneous Notes Telephone Encounter - Yee Nix LPN - 04/21/2021 10:53 AM EDT Attempt made to call pt regarding COVID vaccine, no answer.CCM: 1 minute 04/21/2021 Yee Nix LPN documented in this encounter Plan of Treatment Upcoming Encounters Date Type Specialty Care Team Description 07/08/2021 Appointment Behavioral Health Francisco Torres, MS W documented as of this encounter Visit Diagnoses Not on filedocumented in this encounter Care Teams Timber Harvester Operator Relationship Specialty Start Date End Date Katheryn Miles APRN PCP - General 05/30/19 [facility] [place] [address] documented as of this encounter
--- OUTSIDE RECORDS SUMMARY | 2021-07-04 08:12 | XMS_ITS | Encounter Summary ---
:1985 Author Organization [facility] Address [address] [place] [address] Care Team Providers Name Role Phone Katheryn Miles APRN Primary Care Provider [phone] Encounter Details Date Type Department Care Team Description 05/13/2021 Hospital Encounter SHIVA METHADONE Erin Torres ine use disorder, moderate, dependence (HC Code) (Primary Dx); MAINTENANCE CAMRYN Singh Opioid use disorder, severe, dependence (HC Code); [address] [facility] PTSD (post-traumatic stress disorder) [place] [address] Social History Tobacco Use Types Packs/Day Years [...] been in contact with No / Unsure 05/13/2021 9:42 AM EDT someone who was confirmed or suspected to have Coronavirus / COVID-19? documented as of this encounter Medications at [...] pain. opioid dependence Client is engaged with [facility] for treatment of OUD. Current [...] encounter Progress Notes Francisco Torres MSW - 05/13/2021 2:[address] [facility] ??? Adult Outpatient Behavioral Health PROGRESS NOTE Client Name: Shakila Grove Date: 05/13/2021 Date of : 1985 Level of Care: Methadone Length of Service: 20 mins Start Time: 8:10 am Stop Time: 8:30 am Type of Contact: Individual Therapy Clinician Assigned to Case: Francisco Torres LMSW Chief Complaint: I know right from what I have no business doing. I just need to gt a feel for the house. Presenting Problems: Telemedicine session conducted via telephone due to medical necessity as permitted through emergencytemporary expansion of telemedicine coverage outlined by DSS/CMAP PB 2019- and [id number]. Patient gave verbal consent for telemedicine. Patient location: her sober house My location- [facility] office This session must be conducted by telemedicine and is medically necessary given the current COVID-19outbreak and having the patient come into the clinic for a follow-up puts the patient at risk and want to encourage social distancing. Lieutenant Fire Fighter and cleint spoke for counseling session. She completed inpatient treatment 05/12/2021 at [facility]. Was guest dosing at [facility] and maintained on 65 mg MTD QD. She reports she is staying at [facility] sober house in [place] and plans to return to work at [employer] in [place]. D/t cherelle gutierrez in working in [place] referral to [facility] location was deemed appropriate. Care was coordinated with interdisciplinary team and client agreed to present today to complete transfer. She reports she isdoing well and hopeful about her recovery. Used CBT and Mi techniques to explore relapse prevention techniques and identify personal strengths. She reports she is not interested in restarting psychiatric medications at this time but understands she can restart med management at [facility]. She denied any SI/HI/AH/VH and is not an imminent risk to herself or others. Mental Status Exam Attention: normal Comments: Level of Consciousness: normal Comments: Appearance: appropriately dressed Comments: Orientation: oriented to kqhhyl-dmvxc-abri Comments: Memory Immediate memory: intact Recent memory: [...] denies substance use: no Level of Care: Methadone Maintenance (1.3) Date of last Urine Drug Screen (UDS): UDS Results: Current signs and symptoms of Alcohol/Benzodiazepine/Barbiturate withdrawal: none Current signs and symptoms of Opioid withdrawal: none Substance abuse urges/cravings: no If yes, explain: Has client attended any self-help or substance use disorder groups since their last visit: yes Last date of illicit/non-prescribed drug/alcohol use: 04/20 Drug classification: opiates, crack/cocaine Stage of Change: contemplative Assessment and Plan Problem List ICD-10-CM 09/07/19 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 Psycho education provided about the risks and dangers of continued substance use including overdose and . Plan: Will benefit from daily MTD dosing, monthly individual counseling utilizing [place] and CBT techniques, continued assessment to determine the appropriateness of medication management, and coordination of care with primary care as needed. Family Involvement: None Problem #2: Area of Focus: Assessment: Plan: Family Involvement: None Problem #3: Area of [...] moderate, dependen ce (HC Code) - Primary Opioid use disorder, severe, dependence (HC Code) PTSD (post-traumatic stress disorder) Posttraumatic stress disorder documented in this encounter Care Teams Polarity Tester Relationship Specialty Start Date End Date Katheryn Miles APRN PCP - General 05/30/19 [place] [phone] documented as of this encounter
--- OUTSIDE RECORDS SUMMARY | 2021-07-04 08:12 | XMS_ITS | Encounter Summary ---
:1985 Author Organization [facility] Address [address] [place] [address] Care Team Providers Name Role Phone Katheryn Miles APRN Primary Care Provider [phone] Encounter Details Date Type Department Care Team Description 04/20/2021 Scanned Document [facility] Franci Wagner MD [facility] [address] [facility] [address] [place] [phone] (Wo rk) Social History Tobacco Use Types [...] Associated Diagnosis Comme nts LAB SCAN Routine 12/10/2020 documented in this encounter Results Lab Scan (12/10/2020)documented in this encounter Visit Diagnoses Not on filedocumented in this encounter Additional Health Concerns Infection Onset Date Last Indicated Resolved Time R/O COVID-19 06/20/2021 06/20/2021 06/20/2021 5:06 AM EDT MRSAComment: Body fluid 06/20/21 06/20/2021 06/22/2021 documented as of this encounter Care Teams Order Entry Administrator Relationship Specialty Start Date End Date Katheryn Miles APRN PCP - General 05/30/[address] [place], [place] [address] [address] documented as of this encounter
--- OUTSIDE RECORDS SUMMARY | 2021-07-04 08:12 | XMS_ITS | Encounter Summary ---
:1985 Author Organization [facility] Address [address] [place] [address] Care Team Providers Name Role Phone Katheryn Miles APRN Primary Care Provider [phone] Encounter Details Date Type Department Care Team Description 04/15/2021 Hospital Encounter SHIVA METHADONE Erin Torres ine use disorder, moderate, dependence (HC Code) (Primary Dx); MAINTENANCE CAMRYN Singh Opioid use disorder, severe, dependence (HC Code); [address] [facility] PTSD (post-traumatic stress disorder) [place] [address] Social History Tobacco Use Types Packs/Day Years [...] pain. opioid dependence Client is engaged with [facility] for treatment of OUD. Current [...] of this encounter Progress Notes Francisco Torres, CAMRYN - 04/15/2021 3:28 PM EDT [facility] ??? Adult Outpatient Behavioral Health PROGRESS NOTE Client Name: Shakila Grove Date: 04/15/2021 Date of : 1985 Level of Care: Outpatient Length of Service: 20 mins Start Time: 10:15 am Stop Time: 10:35 am Type of Contact: Individual Therapy Clinician Assigned to Case: Francisco Torres LMSW Chief Complaint: I have a bed at [facility]. I need this. I know that there's more to life than this Presenting Problems: Client is a 35 year old, single, female living in [place], [place]. Client and sheet writer met in person for counseling session. Client was disheveled and poorly groomed today. She reports tension in her personal life after a family member overdosed from heroin she had procured. Client reports using 2-3 bundles of heroin daily. She reports crack cocaine use that's gotten out of hand. She reports she has a pending bed at [facility] inpatient treatment facility for 04/20/2021. She reports she has completed PPD and is pending a COVID 19 test. Director Of Cardiac Rehabilitation will work with cleint and agency employment trainer to ensure transportation to the facility on day of intake. Writeroffered NARCAN prescription, however client declined this stating she had an RX at home. 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 Psycho education provided about the risks and dangers of continued substance use including overdose and . Plan: Will benefit from daily MTD dosing, 2-4 X a month individual counseling utilizing [place] and CBT techniques, continued assessment to determine the appropriateness of medication management, and coordinationof care with primary care as needed. Family Involvement: None Problem #2: r/u Bipolar r/u PTSD Area of Focus: Depression Assessment: Client reports she discontinued psychiatric medications. She denied any SI/HI/AH/VH and is not an imminent risk to herself or others. Plan: Client will meet with this sheet writer 1x weekly for individual tele counseling [...] disorder documented in this encounter Care Teams Medical Massage Therapist Relationship Specialty Start Date End Date Katheryn Miles APRN PCP - General 05/30/19 [place] [phone] documented as of this encounter
--- OUTSIDE RECORDS SUMMARY | 2021-07-04 08:12 | XMS_ITS | Encounter Summary ---
:1985 Author Organization [facility] Address [address] [place] [address] Care Team Providers Name Role Phone Katheryn Miles APRN Primary Care Provider [phone] Encounter Details Date Type Department Care Team Description 06/12/[address] [facility] Franci Wagner MD [facility] [address] [facility] [address] [place] [phone] (Wo rk) Social History Tobacco Use Types [...] Associated Diagnosis Comme nts LAB SCAN Routine 06/08/2021 documented in this encounter Results Lab Scan (06/08/2021) Narrative This result has an attachment that is no t available. documented in this encounter Visit Diagnoses Not on filedocumented in this encounter Additional Health Concerns Infection Onset Date Last Indicated Resolved Time R/O COVID-19 06/20/2021 06/20/2021 06/20/2021 5:06 AM EDT MRSAComment: Body fluid 06/20/21 06/20/2021 06/22/2021 documented as of this encounter Care Teams Telecom Sales Consultant Relationship Specialty Start Date End Date Katheryn Miles APRN PCP - General 05/30/19 [address] [place] [phone] documented as of this encounter
--- OUTSIDE RECORDS SUMMARY | 2021-07-04 08:12 | XMS_ITS | Encounter Summary ---
:1985 Author Organization [facility] Address [address] [place] [address] Care Team Providers Name Role Phone Katheryn Miles APRN Primary Care Provider [phone] Encounter Details Date Type Department Care Team Description 01/19/2021 Hospital Encounter ANSONIA METHADONE Brian, No S how MAINTENANCE Francisco, CAMRYN [address] [id number] Social History Tobacco Use Types Packs/Day Years [...] this encounter Miscellaneous Notes Office/Comment Note - Francisco Torres MSW - 01/19/2021 10:36 AM EDT Pathology Collector called client for phone session. Number unable to receive calls at this time. documented in this encounter Plan of Treatment Upcoming Encounters Date Type Specialty Care Team Description 07/08/2021 Appointment Behavioral Health Francisco Torres MS W documented as of this encounter Visit Diagnoses Not on filedocumented in this encounter Care Teams Piggery Worker Relationship Specialty Start Date End Date Katheryn Miles APRN PCP - General 05/30/19 Pending sale to [facility] [place] [address] documented as of this encounter
--- OUTSIDE RECORDS SUMMARY | 2021-07-04 08:12 | XMS_ITS | Encounter Summary ---
:1985 Author Organization [facility] Address [address] [place] [address] Care Team Providers Name Role Phone Katheryn Miles APRN Primary Care Provider [phone] Encounter Details Date Type Department Care Team Description 06/29/2021 Scanned Document [facility] Franci Wagner MD [facility] 400 [facility] [address] [place] [phone] (Wo rk) Social History Tobacco Use Types [...] Associated Diagnosis Comme nts LAB SCAN Routine 06/26/2021 documented in this encounter Results Lab Scan (06/26/2021) Narrative This result has an attachment that is no t available. documented in this encounter Visit Diagnoses Not on filedocumented in this encounter Additional Health Concerns Infection Onset Date Last Indicated Resolved Time MRSAComment: Body fluid 06/20/21 06/20/2021 06/22/2021 documented as of this encounter Care Teams Machinery Rigger Relationship Specialty Start Date End Date Katheryn Miles APRN PCP - General 05/30/[address] [place], [place] [address] [address] documented as of this encounter
--- OUTSIDE RECORDS SUMMARY | 2021-07-04 08:12 | XMS_ITS | Encounter Summary ---
:1985 Author Organization [facility] Address [address] [place] [address] Care Team Providers Name Role Phone Katheryn Miles APRN Primary Care Provider [phone] Encounter Details Date Type Department Care Team Description 01/29/2021 Scanned Document [facility] Franci Wagner MD [facility] [address] [facility] [address] [place] [phone] (Wo rk) Social History Tobacco Use Types [...] Associated Diagnosis Comme nts LAB SCAN Routine 01/27/2021 documented in this encounter Results Lab Scan (01/27/2021) Narrative This result has an attachment that is no t available. documented in this encounter Visit Diagnoses Not on filedocumented in this encounter Additional Health Concerns Infection Onset Date Last Indicated Resolved Time R/O COVID-19 06/20/2021 06/20/2021 06/20/2021 5:06 AM EDT MRSAComment: Body fluid 06/20/21 06/20/2021 06/22/2021 documented as of this encounter Care Teams Crop Farmers Relationship Specialty Start Date End Date Katheryn Miles APRN PCP - General 05/30/19 [facility] [place] [phone] documented as of this encounter
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
--- OUTSIDE RECORDS SUMMARY | 2021-07-04 08:12 | XMS_ITS | Encounter Summary ---
:1985 Author Organization [facility] Address [address] [facility] [place] [address] Care Team Providers Name Role Phone Katheryn Miles APRN Primary Care Provider [phone] Encounter Details Date Type Department Care Team Description 02/11/2021 Hospital Encounter ANSCIARA METHADONE Erin Torres ine use disorder, moderate, dependence (HC Code) (Primary Dx); MAINTENANCE CAMRYN Singh Substance or medication-eleuterio andrew depressive disorder (HC Code); [address] [facility] Opioid use disorder, severe, dependence (HC Code); [place] [address] PTSD (post-traumatic stress disorder) [phone] Social History Tobacco Use Types Packs/Day Years [...] of this encounter Progress Notes Francisco Torres, PEDIATRIC CRITICAL CARE NURSE - 02/11/2021 4:02 PM EDT [facility] ??? Adult Outpatient Behavioral Health PROGRESS NOTE Client Name: Shakila Grove Date: 02/11/2021 Date of : 1985 Level of Care: Outpatient Length of Service: 30 mins Start Time: 2:30 pm Stop Time: 3:00 pm Type of Contact: Individual Therapy Clinician Assigned to Case: Francisco Torres LMSW Chief Complaint: It's becoming an issue to get there Presenting Problems: Client is a 35 year old, single, female living in [place], [place]. Telemedicine session conducted via telephone due to medical necessity as permitted through emergencytemporary expansion of telemedicine coverage outlined by [facility]/CMAP PB 2020-09 and [id number]. Patient gave verbal consent for telemedicine. Patient location: her house My location- [facility] home office This session must be conducted by telemedicine and is medically necessary given the current COVID-19outbreak and having the patient come into the clinic for a follow-up puts the patient at risk and want to encourage social distancing. Client and senior grant writer spoke for counseling session.She missed dosing today. Reports transportation is a barrier b/c she works two jobs and only has one working car in the household. Leaves 1st job at 8:30 am- needs to be at 2nd job for 9 am. She declined veyo referral at this time. Client helped facilitate goal setting and encourage daily attendance. She did endorse coping with her mother's with increased use of heroin and crack over the last week. Last Puller used ME techniques to explore thoughts and feelings and identify personal values. She is maintained on 55 mg MTD QD which she reports is comfotable, UTOX on 02/10/2021- MTD and LIZZETH, 02/02/2021 was + for MTD, OPI,, and LIZZETH. She discontinued all psych meds in October 2020 and is ambivalent about rescheduling future appointments. Client agreed toweekly counseling sessions to provide additional support. She denies any SI/HI/AH/VH. 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 Psycho education provided about the risks and dangers of continued substance use including overdose and . Plan: Will benefit from daily MTD dosing, 2-4 X a month individual counseling utilizing ME and CBT techniques, continued assessment to determine the appropriateness of medication management, and coordinationof care with primary care as needed. Family Involvement: None Problem #2: r/u Bipolar r/u PTSD Area of Focus: Depression Assessment: Client reports she discontinued psychiatric medications. She denied any SI/HI/AH/VH and is not an imminent risk to herself or others. Plan: Client will meet with this senior grant writer 1x weekly for individual tele counseling and biweekly med management with Suresh Baeza MD. Family Involvement: None Problem #3: Area of Focus: Assessment: Plan: Family Involvement: Problem #4: Area of Focus: Assessment: Plan: Family Involvement: Problem #5: Area of Focus: Assessment: Plan: Family Involvement: Problem #6: Area of Focus: Assessment: Plan: documented in this encounter Plan of Treatment [...] disorder documented in this encounter Care Teams Software Support Representative Relationship Specialty Start Date End Date Katheryn Miles APRN PCP - General 05/30/19 [facility] [place] [phone] documented as of this encounter
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
--- OUTSIDE RECORDS SUMMARY | 2021-07-04 08:12 | XMS_ITS | Encounter Summary ---
:1985 Author Organization [facility] Address [address] [place] [address] Care Team Providers Name Role Phone Katheryn Miles APRN Primary Care Provider [phone] Encounter Details Date Type Department Care Team Description 02/18/2021 Hospital Encounter ANSCIARA METHADONE Erin Torres ine use disorder, moderate, dependence (HC Code) (Primary Dx); MAINTENANCE CAMRYN Singh Substance or medication-eleuterio andrew depressive disorder (HC Code); [address] [facility] Opioid use disorder, severe, dependence (HC Code); [place] [address] PTSD (post-traumatic stress disorder) [phone] Social History Tobacco Use Types Packs/Day Years [...] documented as of this encounter Progress Notes Vale Leonard, FLOOR LAYER APPRENTICE - 02/18/2021 1:57 PM EDT [facility] ??? Adult Outpatient Behavioral Health PROGRESS NOTE Client Name: Shakila Grove Date: 02/18/2021 Date of : 1985 Level of Care: Outpatient Length of Service: 20 mins Start Time: 10:43 am Stop Time: 10:53 am Type of Contact: Individual Therapy Clinician Assigned to Case: Francisco Torres LMSW Chief Complaint: I need to look out for myself. It's this situation, boredom, everything makes me use. Once I relapsed it's like I opened up the floodgates. Presenting Problems: Client is a 35 year old, single, female living in [place], [place]. Telemedicine session conducted via telephone due to medical necessity as permitted through emergencytemporary expansion of telemedicine coverage outlined by [facility]/CMAP PB 2020- and [id number]. Patient gave verbal consent for telemedicine. Patient location: her house My location- [facility] home office This session must be conducted by telemedicine and is medically necessary given the current COVID-19outbreak and having the patient come into the clinic for a follow-up puts the patient at risk and want to encourage social distancing. Client and engineering writer spoke for counseling session.She is maintained on 55 mg MTD QD which she reports is comfortable. She missed dosing today. Reports transportation is a barrier b/c she works two jobs both in [place] and only has one working car in the household. Client acknowledges that the logisticsof her work schedule are not sustainable for her recovery. She has been using sporadically throughout the week, but reports most intense cravings are for cocaine. U Client helped facilitate goal setting and encourage daily attendance. She did endorse coping with her mother's with increased use of heroin and crack over the last week. 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 Psycho education provided about the risks and dangers of continued substance use including overdose and . Plan: Will benefit from daily MTD dosing, 2-4 X a month individual counseling utilizing MO and CBT techniques, continued assessment to determine the appropriateness of medication management, and coordinationof care with primary care as needed. Family Involvement: None Problem #2: r/u Bipolar r/u PTSD Area of Focus: Depression Assessment: Client reports she discontinued psychiatric medications. She denied any SI/HI/AH/VH and is not an imminent risk to herself or others. Plan: Client will meet with this engineering writer 1x weekly for individual tele counseling [...] disorder documented in this encounter Care Teams Shampoo Assistant Relationship Specialty Start Date End Date Katheryn Miles APRN PCP - General 05/30/19 [address] [place] [id number] documented as of this encounter
--- OUTSIDE RECORDS SUMMARY | 2021-07-04 08:12 | XMS_ITS | Encounter Summary ---
:1985 Author Organization [facility] Address [address] [place] [address] Care Team Providers Name Role Phone Katheryn Miles APRN Primary Care Provider [phone] Encounter Details Date Type Department Care Team Description 02/03/2021 Hospital Encounter ANSCIARA METHADONE Erin Torres ine use disorder, moderate, dependence (HC Code) (Primary Dx); MAINTENANCE CAMRYN Singh Substance or medication-eleuterio andrew depressive disorder (HC Code); [address] [facility] Opioid use disorder, severe, dependence (HC Code); [place] [address] PTSD (post-traumatic stress disorder) [phone] Social History Tobacco Use Types Packs/Day Years [...] encounter Progress Notes Francisco Torres, CAMRYN - 02/03/2021 4:[address] [facility] ??? Adult Outpatient Behavioral Health PROGRESS NOTE Client Name: Shakila Grove Date: 02/03/2021 Date of : 1985 Level of Care: Outpatient Length of Service: 30 mins Start Time: 2:30 pm Stop Time: 3:00 pm Type of Contact: Individual Therapy Clinician Assigned to Case: Francisco Torres LMSW Chief Complaint: i''ve been preparing for this my whole life Presenting Problems: Client is a 35 year old, single, female living in [place], [place]. Telemedicine session conducted via telephone due to medical necessity as permitted through emergencytemporary expansion of telemedicine coverage outlined by [facility]/CMAP PB 2020-09 and [id number]. Patient gave verbal consent for telemedicine. Patient location: her house My location- [facility] home office This session must be conducted by telemedicine and is medically necessary given the current COVID-19outbreak and having the patient come into the clinic for a follow-up puts the patient at risk and want to encourage social distancing. Client and technical document writer spoke for counseling session. Client discussed the of her mother on 01/31/2021from heart failure. Client reports I feel at peace she's not suffering anymore.I've been preparing for this. She did endorse that it triggered increased use of heroin and crack over the weekend. Fork Operator used UT techniques to explore thoughts and feelings and identify personal values. She is maintained on 55 mg MTD QD which she reports is comfotable, UTOX on 02/02/2021 was + for MTD, OPI,, and LIZZETH. She discontinued all psych meds in October 2020 and is ambivalent about rescheduling future appointments. Client agreed to weekly counseling sessions to provide additional support. She denies any SI/HI/AH/VH. 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 Psycho education provided about the risks and dangers of continued substance use including overdose and . Plan: Will benefit from daily MTD dosing, 2-4 X a month individual counseling utilizing UT and CBT techniques, continued assessment to determine the appropriateness of medication management, and coordinationof care with primary care as needed. Family Involvement: None Problem #2: r/u Bipolar r/u PTSD Area of Focus: Depression Assessment: Client reports she discontinued psychiatric medications. She denied any SI/HI/AH/VH and is not an imminent risk to herself or others. Plan: Client will meet with this technical document writer 1x weekly for individual tele counseling [...] disorder documented in this encounter Care Teams Credit Collections Clerk Relationship Specialty Start Date End Date Katheryn Miles APRN PCP - General 05/30/19 [facility] [place] [id number] documented as of this encounter
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
--- OUTSIDE RECORDS SUMMARY | 2021-07-04 08:12 | XMS_ITS | Encounter Summary ---
:1985 Author Organization [facility] Address [address] [place] [address] Care Team Providers Name Role Phone Katheryn Miles APRN Primary Care Provider Encounter Details Date Type Department Care Team Description 03/13/2021 Scanned Document [facility] Franci Wagner MD [facility] [address] [facility] [address] [place] [phone] (Wo rk) Social History Tobacco Use Types [...] Associated Diagnosis Comme nts LAB SCAN Routine 03/09/2021 documented in this encounter Results Lab Scan (03/09/2021) Narrative This result has an attachment that is no t available. documented in this encounter Visit Diagnoses Not on filedocumented in this encounter Additional Health Concerns Infection Onset Date Last Indicated Resolved Time R/O COVID-19 06/20/2021 06/20/2021 06/20/2021 5:06 AM EDT MRSAComment: Body fluid 06/20/21 06/20/2021 06/22/2021 documented as of this encounter Care Teams Yeast Pusher Relationship Specialty Start Date End Date Katheryn Miles APRN PCP - General 05/30/19 [facility] [place] [id number] documented as of this encounter
--- OUTSIDE RECORDS SUMMARY | 2021-07-04 08:12 | XMS_ITS | Encounter Summary ---
:1985 Author Organization [facility] Address [address] [place] [address] Care Team Providers Name Role Phone Katheryn Miles APRN Primary Care Provider [phone] Encounter Details Date Type Department Care Team Description 05/13/2021 Travel Social History Tobacco Use Types Packs/Day [...] on filedocumented in this encounter Care Teams Resolute Professional Relationship Specialty Start Date End Date Katheryn Miles APRN PCP - General 05/30/19 Josue [place] [address] documented as of this encounter
--- OUTSIDE RECORDS SUMMARY | 2021-07-04 08:12 | XMS_ITS | Encounter Summary ---
:1985 Author Organization [facility] Address [address] [place] [address] Care Team Providers Name Role Phone Katheryn Miles APRN Primary Care Provider [phone] Encounter Details Date Type Department Care Team Description 02/12/2021 Scanned Document [facility] Franci Wagner MD [facility] [address] [facility] [address] [place] [phone] (Wo rk) Social History Tobacco Use Types [...] Associated Diagnosis Comme nts LAB SCAN Routine 02/10/2021 documented in this encounter Results Lab Scan (02/10/2021) Narrative This result has an attachment that is no t available. documented in this encounter Visit Diagnoses Not on filedocumented in this encounter Additional Health Concerns Infection Onset Date Last Indicated Resolved Time R/O COVID-19 06/20/2021 06/20/2021 06/20/2021 5:06 AM EDT MRSAComment: Body fluid 06/20/21 06/20/2021 06/22/2021 documented as of this encounter Care Teams Loss Prevention Operations Manager Relationship Specialty Start Date End Date Katheryn Miles APRN PCP - General 05/30/19 [facility] [place] [phone] documented as of this encounter
--- OUTSIDE RECORDS SUMMARY | 2021-07-04 08:12 | XMS_ITS | Encounter Summary ---
:1985 Author Organization [facility] Address [address] [place] [address] Care Team Providers Name Role Phone Katheryn Miles APRN Primary Care Provider [phone] Encounter Details Date Type Department Care Team Description 02/03/2021 Scanned Document [facility] Franci Wagner MD [facility] [address] [facility] [address] [place] [phone] (Wo rk) Social History Tobacco Use Types [...] Associated Diagnosis Comme nts LAB SCAN Routine 01/31/2021 documented in this encounter Results Lab Scan (01/31/2021) Narrative This result has an attachment that is no t available. documented in this encounter Visit Diagnoses Not on filedocumented in this encounter Additional Health Concerns Infection Onset Date Last Indicated Resolved Time R/O COVID-19 06/20/2021 06/20/2021 06/20/2021 5:06 AM EDT MRSAComment: Body fluid 06/20/21 06/20/2021 06/22/2021 documented as of this encounter Care Teams Solar Sales Assessor Relationship Specialty Start Date End Date Katheryn Miles APRN PCP - General 05/30/19 [facility] [place] [phone] documented as of this encounter
--- OUTSIDE RECORDS SUMMARY | 2021-07-04 08:12 | XMS_ITS | Encounter Summary ---
:1985 Author Organization [facility] Address [address] [facility] [place] [address] Care Team Providers Name Role Phone Katheryn Miles APRN Primary Care Provider [phone] Encounter Details Date Type Department Care Team Description 05/11/2021 Documentation [facility] Carmelita Torres u se disorder, moderate, dependence (HC Code) (Primary Dx); MAINTENANCE CAMRYN Singh Opioid use disorder, severe, dependence (HC Code); [address] [facility] PTSD (post-traumatic stress disorder) [place] [address] Social History Tobacco Use Types Packs/Day Years [...] Office/Comment Note - Francisco Torres MSW - 05/11/2021 8:48 AM EDT Lip Cutter johnny with Client's inpatient clinician at [facility] Anuradha Abdi @ [phone] and confirmed client's discharge date of 05/12/2021. She will be dosed with 65 mg MTD QD on 05/12/2021 and go d2dto [facility]. Plan is for client to return to dosing at [facility] on 05/13/2021 @ 11:30 am and meet with this fha underwriter for session. For dose verification please call Carley TAMAYO @ [phone] Maninder ([facility] nurse) @ [phone]. documented in this encounter Plan of Treatment Upcoming Encounters Date Type Specialty Care Team Description 07/08/2021 Appointment Behavioral Health Francisco Torres MS W documented as of this encounter Visit Diagnoses Diagnosis Cocaine use disorder, moderate, dependen ce (HC Code) - Primary Opioid use disorder, severe, dependence (HC Code) PTSD (post-traumatic stress disorder) Posttraumatic stress disorder documented in this encounter Additional Health Concerns Infection Onset Date Last Indicated Resolved Time R/O COVID-19 06/20/2021 06/20/2021 06/20/2021 5:06 AM EDT MRSAComment: Body fluid 06/20/21 06/20/2021 06/22/2021 documented as of this encounter Care Teams Coal Passer Relationship Specialty Start Date End Date Katheryn Miles APRN PCP - General 05/30/19 [facility] [place], [place] [phone] documented as of this encounter
--- OUTSIDE RECORDS SUMMARY | 2021-07-04 08:12 | XMS_ITS | Encounter Summary ---
:1985 Author Organization [facility] Address [address] [place] [address] Care Team Providers Name Role Phone Katheryn Miles APRN Primary Care Provider [phone] Encounter Details Date Type Department Care Team Description 04/21/2021 Documentation [facility] Francisco Torres, NATASHA APPLIED PSYCHOLOGY PROFESSOR [address] [place] [address] Social History Tobacco Use Types Packs/Day Years [...] Office/Comment Note - Francisco Torres MSW - 04/21/2021 3:20 PM EDT Received dose verification from [facility]. Will keep client's case open expecting her to returnafter 30 day treatment. documented in this encounter Plan of Treatment [...] documented as of this encounter Care Teams Purchase Price Analyst Relationship Specialty Start Date End Date Katheryn Miles APRN PCP - General 05/30/[address] [place] [address] [place] [address] documented as of this encounter
--- OUTSIDE RECORDS SUMMARY | 2021-07-04 08:12 | XMS_ITS | Encounter Summary ---
:1985 Author Organization [facility] Address [address] [place] [address] Care Team Providers Name Role Phone Katheryn Miles APRN Primary Care Provider [phone] Encounter Details Date Type Department Care Team Description 05/19/2021 Scanned Document [facility] Franci Wagner MD [facility] [address] [facility] [address] [place] [phone] (Wo rk) Social History Tobacco Use Types [...] Associated Diagnosis Comme nts LAB SCAN Routine 05/13/2021 documented in this encounter Results Lab Scan (05/13/2021) Narrative This result has an attachment that is no t available. documented in this encounter Visit Diagnoses Not on filedocumented in this encounter Additional Health Concerns Infection Onset Date Last Indicated Resolved Time R/O COVID-19 06/20/2021 06/20/2021 06/20/2021 5:06 AM EDT MRSAComment: Body fluid 06/20/21 06/20/2021 06/22/2021 documented as of this encounter Care Teams Sfdc Technical Architect Relationship Specialty Start Date End Date Katheryn Miles APRN PCP - General 05/30/19 [address] [place] [phone] documented as of this encounter
--- OUTSIDE RECORDS SUMMARY | 2021-07-04 08:13 | XMS_ITS | Encounter Summary ---
:1985 Author Organization [facility] Address [address] [place] [address] Care Team Providers Name Role Phone Katheryn Miles APRN Primary Care Provider [phone] Encounter Details Date Type Department Care Team Description 02/21/2020 Travel Social History Tobacco Use Types Packs/Day [...] been in contact with No / Unsure 02/21/2020 8:01 AM EDT someone who was confirmed or suspected to have Coronavirus / COVID-19? documented as of this encounter Plan of Treatment Upcoming Encounters Date Type Specialty Care Team Description 07/08/2021 Appointment Behavioral Health Francisco Torres, MS W documented as of this encounter Visit Diagnoses Not on filedocumented in this encounter Care Teams Waterproofing Machine Operator Relationship Specialty Start Date End Date Katheryn Miles APRN PCP - General 05/30/19 [place] [address] documented as of this encounter
--- OUTSIDE RECORDS SUMMARY | 2021-07-04 08:13 | XMS_ITS | Encounter Summary ---
:1985 Author Organization [facility] Address [address] [place] [address] Care Team Providers Name Role Phone Katheryn Miles APRN Primary Care Provider [phone] Reason for Visit Reason Comments Other Encounter Details Date Type Department Care Team Description 08/11/2020 Telephone [facility] Katheryn Dhillon APRN Other CENTER [address] [address] [place], [place] [id number] [phone] Social History Tobacco Use Types Packs/Day Years [...] this encounter Miscellaneous Notes Telephone Encounter - Martha Woods RN - 08/11/2020 4:13 PM EDT Pt needs an appt. Has not been in since October. Thanks! elephone Encounter - Martina Howell - 08/11/2020 2:38 PM EDT Patient called and stated she may have poison oneyda and would like to be prescribed something for it. Her call back number is [phone] documented in this encounter Plan of Treatment [...] documented as of this encounter Care Teams Home Service Director Relationship Specialty Start Date End Date Katheryn Miles APRN PCP - General 05/30/19 [facility] [phone] documented as of this encounter
--- OUTSIDE RECORDS SUMMARY | 2021-07-04 08:13 | XMS_ITS | Encounter Summary ---
:1985 Author Organization [facility] Address [address] [place] [address] Care Team Providers Name Role Phone Katheryn Miles APRN Primary Care Provider [phone] Encounter Details Date Type Department Care Team Description 11/28/2019 Orders Only [facility] Katheryn Turk, [address] [place] [address] [address] [facility] [phone] [place], [place] [phone] (Wo rk) Social History Tobacco Use Types [...] on filedocumented in this encounter Care Teams Assembler For Puller Over Machine Relationship Specialty Start Date End Date Katheryn Miles APRN PCP - General 05/30/19 [address] [facility] [place] [phone] documented as of this encounter
--- OUTSIDE RECORDS SUMMARY | 2021-07-04 08:13 | XMS_ITS | Encounter Summary ---
:1985 Author Organization [facility] Address [address] [place] [address] Care Team Providers Name Role Phone Katheryn Miles APRN Primary Care Provider [phone] Reason for Visit Reason Comments Follow-up Recocery Supports Encounter Details Date Type Department Care Team Description 10/11/[address] [facility] Deena Loera [address] [place] [id number] Social History Tobacco Use Types Packs/Day Years [...] on file documented as of this encounter Progress Notes Deena Smith - 10/11/2019 3:45 PM EST [facility] ??? Adult Outpatient Behavioral Health CASE MANAGEMENT Client Name: Shakila Grove Date: 10/11/2019 Date of : 1985 Type of Service: Recovery Support/Case Management Time of Service: 3:45pm Length of Service: 15 mins Referral for Services: Case Management Previous Referrals: Contact: Previous Contact: Comments: Client needed to schedule an appointment with Dr. Baeza and asked specification writer to help her do that. Barrel Raiser was able to do that. Client and specification writer talked about how things were going. Client talked about herwork schedule and that she's been working a lot. She reported that she has a relapse recently but since that day she states she's been client. Client talked about how she was in a situation where things were triggering her and she left the situation, Barrel Raiser praised client for making the right decision. Client reports that she's going to be attending a group next week. Plan. Client will follow up with specification writer weekly as wells as for recovery supports Deena Smith 10/12/2019 10:44 AM documented in this encounter Plan of Treatment Upcoming Encounters Date Type Specialty Care Team Description 07/08/2021 Appointment Behavioral Health Francisco Torres, MS W documented as of this encounter Visit Diagnoses Not on filedocumented in this encounter Care Teams Integrated Marketing Manager Relationship Specialty Start Date End Date Katheryn Miles APRN PCP - General 05/30/19 [facility] [place] [address] documented as of this encounter
--- OUTSIDE RECORDS SUMMARY | 2021-07-04 08:13 | XMS_ITS | Encounter Summary ---
:1985 Author Organization [facility] Address [address] [place] [address] Care Team Providers Name Role Phone Katheryn Miles APRN Primary Care Provider [phone] Encounter Details Date Type Department Care Team Description 02/04/2020 Travel Social History Tobacco Use Types Packs/Day [...] been in contact with No / Unsure 02/04/2020 3:02 PM EDT someone who was confirmed or suspected to have Coronavirus / COVID-19? documented as of this encounter Plan of Treatment Upcoming Encounters Date Type Specialty Care Team Description 07/08/2021 Appointment Behavioral Health Francisco Torres, MS W documented as of this encounter Visit Diagnoses Not on filedocumented in this encounter Care Teams Manufacture Specialist Relationship Specialty Start Date End Date Katheryn Miles APRN PCP - General 05/30/19 [place] [address] documented as of this encounter
--- OUTSIDE RECORDS SUMMARY | 2021-07-04 08:13 | XMS_ITS | Encounter Summary ---
:1985 Author Organization [facility] Address [address] [place] [id number] Care Team Providers Name Role Phone Katheryn Miles APRN Primary Care Provider Encounter Details Date Type Department Care Team Description 10/15/2019 Plan of Care Documentation Social History Tobacco Use Types Packs/Day Years [...] documented as of this encounter Miscellaneous Notes [facility]-Behavioral Health - Amanda Payne LCSW - 10/15/2019 1:17 PM EST [facility] Outpatient Behavioral Health Interdisciplinary Treatment Plan [place] [id number] 10/08/19 to 12/09/19 Overview: Current Diagnosis: Problem List ICD-10-CM 09/07/19 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 Barriers I sometimes self sabotage. Recovery Capital: Family SupportsPersonal StrengthsFuture Goals Active Multidisciplinary Problems: INTERDISCIPLINARY PROBLEM LIST Mood Alteration: Active Descriptive Behaviors: Substance induced mood disorder: client reports racing thoughts, moving fromone task to another quickly, depressive symptoms for weeks at a time, client reports current not struggling. Patient Stated Goal(s): I don't want to get back to that sad, depressed, hopeless place. Automotive Tire Technician Goal(s): Medication compliance/adjustments and Demonstrated use of positive/appropriate coping mechanisms Target Date: 08/2020 Short Term Goal/Objective: Patient will identify triggers related to altered mood as evidenced by??? Learning two ways to manage frustration in a positive manner. Target Date: 12/09/19 Status: Minimal progress Short Term Goal/Objective: Patient will return to baseline level of functioning as evidenced by??? Assessing personal risk traits and resiliency traits and discuss the role each plays in coping with daily stresses during the time between therapy sessions. Target Date: 12/09/19 Status: Minimal progress Intervention/Frequency: Provide counseling and emotional support 1x weekly therapy session with PATTERNMAKER PRESSURE CAST- utilizing, GA, CBT, and continued attendance in pathways to recovery. Intervention/Frequency: Facilitate goal setting 1x weekly therapy session with PATTERNMAKER PRESSURE CAST- utilizing, GA,CBT, and continued attendance in pathways to recovery. Substance Use / Abuse: Active Descriptive Behaviors: Polysubstance use d/o sx: daily cravings, triggers come frequently, inability to refuse the substance, poor distress tolerance- using drugs as stress relief technique Patient Stated Goal(s): I want to keep from relapsing. Senior Living Goal(s): Re-establish sobriety, identify connection between psychiatric symptoms and substance abuse and develop an active relapse prevention plan and Demonstrated use of positive/appropriate coping mechanisms Target Date: 08/2020 Short Term Goal/Objective: Patient will report a decrease in substance use as evidenced by ??? Client will learn min. two ways to regulate her distress (or mood, or anxiety, or depression) without useof mood-altering substances . Target Date: 12/09/19 Status: Minimal progress Short Term Goal/Objective: Patient will increase awareness of triggers/cravings to substance use asevidenced by ??? keeping a personal cravings/ triggers journal- documenting each craving and scaling0-10 how severe. Target Date: 2/9/20 Status: Minimal progress Intervention/Frequency: Encourage identification/practice/mastery of adaptive coping skills 1x weekly individual therapy sessions with PATTERNMAKER PRESSURE CAST- utilizing GA, CBT and continued enrollment in pathways to recovery. Intervention/Frequency: Facilitate patient identifying triggers/cravings 1x weekly individual therapy sessions with PATTERNMAKER PRESSURE CAST- utilizing GA, CBT and continued enrollment in pathways to recovery. Other Assessed Need(s) (Medical/Psychosocial) (List the Assessed Need and indicate the intervention/referral/deferred to community planning technician/PCP information) Problems with primary support: Client reports relational issues with her fiance reporting that she would like to move on her own, and not feel that she has to depend on him for aything. Clinician and client discuss independence and how help during early recovery it is sometimes needed in order to sutain comfort. Clinician will continue to work with client toward building healthy relationships. Medical / Psychological Assessments: Medications: Assessment of medication side effects and/or adverse medication reactions is ongoing Current Outpatient Medications Medication Sig ??? buprenorphine-naloxone (SUBOXONE) 8-2 mg per sublingual film Place 1 Film under the tongue 2 (two) times daily. ??? buPROPion (WELLBUTRIN XL) 150 mg XL 24 hr extended release tablet ??? propranolol (INDERAL) 20 mg Immediate Release tablet Take by mouth. ??? sertraline (ZOLOFT) 50 mg tablet Take 50 mg by mouth daily. No current facility-administered medications for this visit. Consult / Referral Made: Individual Therapy Discharge Planning: Anticipated Discharge Date: 08/2020 Anticipated Discharge Level of Care/ Disposition: PCP for Medication Management Plan: During this review period client met with individual therapist 4 times, 0 medication management appointments, and 1 group. Client missed her initial psychiatric evaluation with Dr. Baeza on 09/13/19.After discussion with this customs entry writer, client declined medication management and services with Dr. Aryan Md. Clinician will revisit with client throughout treatment and reschedule if necessary. Client reports that her mood has varied throughout the last month- but is primarily euthymic- and attributes this to her abstinence from opiates and cocaine. Client admits that she has smoked marijuana as a filler- and is feeling guilty for substance swapping. Client has made a goal of abstaining from all mind altering substances. Client most recent utox on 10/11/19 was + for Buprenophrine And Marijuana. Clinician and client have focused on DBT skill including grounding and mindfulness, and distress tolerance as client reports these are two main things that trigger a misuse of illegal substances. Client has made minimal progress toward identifying her internal and external triggers for use, and has not willingly journaled. Client reports that she will begin to journal as she finds it to be helpful. Client has attended one pathways of recovery group, and reports that her schedule does not permit her to attend at this time. Clinician referred client to anxiety and depression group as well as women's group, client plans to attend. Client completed 30 day basis to assess for progression. Basis overall scoreindicated: 1.03. Client will continue weekly session with this customs entry writer utilizing: GA, CBT, goal orientation, and relapse prevention. MD Certification: Services in treatment plan are reasonable and necessary for the diagnosis and treatment of the itemson the problem list to improve functioning. Frequency of the services is appropriate. I certify the medical necessity of this treatment plan until the next treatment plan review. [facility] Adult Clinical Measures Row Name 09/11/19 1500 09/07/19 1500 Clinical Measures Clinical Measure Review Type Admission Measure Admission Measure Clinical Measures Behavior and Symptom Identification Scale (BASIS-24) - Romanian CAGE Assessment;Mental Health Screening Form III (MHSF-III) Behavior and Symptom Identification Scale (BASIS-24) - Romanian Time point of assessment Admission ??? Primary Mental Illness Diagnosis F19.94 ??? Primary Substance Use Diagnosis F11.20 ??? Clinician Last Name Kerry ??? 1. In past week, how much difficulty did you have - Managing your day to day life A little difficulty ??? 2. In past week, how much difficulty did you have - Coping with problems in your life No difficulty ??? 3. In past week, how much difficulty did you have - Concentrating A little difficulty ??? 4. During past week, how much of the time did you - Get along with people in your family A little of the time ??? 5. During past week, how much of the time did you - Get along with people outside your family Mostof the time ??? 6. During the past week, how much of the time did you - Get along well in social situations All ofthe time ??? 7. During the past week, how much of the time did you - Feel close to another person All of the time ??? 8. During the past week, how much of the time did you - Feel like you had someone to turn to if youneeded help Most of the time ??? 9. During the past week, how much of the time did you - Feel confident in yourself Most of the time ??? 10. During the past week, how much of the time did you - Feel sad or depressed A little of the time ??? 11. During the past week, how much of the time did you - Think about ending your life None of the time ??? 12. During the past week, how much of the time did you - Feel nervous A little of the time ??? 13. During the past week, how often did you - Have thoughts racing through your head Sometimes ??? 14. During the past week, how often did you - Think you had special mehta Never ??? 15. During the past week, how often did you - Hear voices or see things Never ??? 16. During the past week, how often did you - Think people were watching you Never ??? 17. During the past week, how often did you - Think people were against you Never ??? 18. During the past week, how often did you - Have mood swings Rarely ??? 19. During the past week, how often did you - Feel short-tempered Never ??? 20. During the past week, how often did you - Think about hurting yourself Never ??? 21. During the past week, how often - Did you have an urge to drink alcohol or take street drugs Rarely ??? 22. During the past week, how often - Did anyone talk to you about your drinking or drug use Never ??? 23. During the past week, how often - Did you try to hide your drinking or drug use Never ??? 24. During the past week, how often - Did you have problems from your drinking or drug use Never ??? 25. How old are you 33 ??? 26. What is your sex Female ??? 27. Are you . . . NOT or ??? 28. What is your racial background White/ ??? 29. How much school have you completed Some college ??? 30. Are you now . . . Never ??? 31. Outside of your treatment providers, what is your main source of social support , or partner ??? 32. Where did you sleep in the last 30 days Apartment or house ??? 33. At any time in the past 30 days, did you work at a paying job Yes, 11-30 hours per week ??? 34. At any time in the past 30 days, did you work at a volunteer job No ??? 35. At any time in the past 30 days, were you a student in a high school, job training or college degree program No ??? 36. Do you now receive disability benefits, for example SSI, SSDI or other disability insurance (check one or more) No ??? Todays date 09/11/19 ??? OVERALL Score 1.03 ??? DEPRESSION Score 0.92 ??? RELATIONSHIPS Score 3.09 ??? SELF-HARM Score 0 ??? EMOTIONAL LABILITY Score 0.83 ??? PSYCHOSIS Score 0 ??? SUBSTANCE ABUSE Score 0.34 ??? CAGE C:Have you ever felt you should cut down on your drinking or drug use? Yes C:Have you ever felt you should cut down on your drug use? Yes A:Have people Annoyed you by criticizing your drinking or drug use? Yes A:Have people Annoyed you by criticizing your drug use? Yes G:Have you ever felt bad or Guilty about your drinking or drug use? Yes G:Have you ever felt bad or Guilty about your drug use? Yes E:Have you ever had a drink first thing in the morning to steady your nerves or to get rid of a hangover (Eye Shipping/Receiving Clerk)? Yes E:Have you ever used drugs first thing in the morning to steady your nerves or to get rid of a hangover (Eye Shipping/Receiving Clerk)? Yes Cage Assesment Score ??? 8 Mental Health Screening Form III 1. Have you ever talked to a psychiatrist, psychologist, therapist, social science research assistant or counselor about an emotional problem? Yes 2. Have you ever felt you needed help with your emotional problems, or had people tell you that youshould get help for emotional problems ??? Yes 3. Have you been advised to take medication for anxiety, depression, hearing voices or other emotional problem ??? Yes 4. Have you ever been see in a psychiatric ER or hospitalized for psychiatric reasons ??? Yes 5. Have you ever heard voices no one else could hear/see things others could not see ??? No 6. Have you ever been depressed for weeks at a time, lost pleasure in activities, trouble concentrating, thought of killing yourself ??? No 6a. Did you ever attempt to kill yoursel ??? No 7. Have you ever had nightmares/flashbacks as a reult of a traumatic event ??? No 8. Have you ever experienced any strong fears (heights, insects, social events, being alone) ??? No 9. Have you ever given in to an impulsive/aggressive urge that has resulted in harm/destruction of property ??? Yes 10. Have you ever felt people had something against you/influencing your thoughts ??? No 11. Have you ever experienced emotional problems associated with sexual interests/activities/partner ??? No 12. Was there ever a time in your life you spent a lot of time worrying about gaining weight/becoming fat/controlling your eating ??? No 13. Every had period of time when you were so full of energyand ideas came very rapidly, needed little sleep, thought you could do almost anything ??? No 14. Ever had spells/attacks when suddenly felt anxious, frightened and uneasy and started sweating/heart raced/shaking/thought you would faint ??? Yes 15. Ever had persistant, lasting thought or impulse that caused considerable stress and impacted normal routines ??? Yes 16. Ever lost considerable sums of money or had problems with work/relationships due to gambling ??? No 17. Been told by teachers, guidance counselors or others that you have a special learning problem ??? No Mental Health Screening Form (MHSF-III) Total Score ??? 5 documented in this encounter Plan of Treatment Upcoming Encounters Date Type Specialty Care Team Description 07/08/2021 Appointment Behavioral Health Francisco Torres, W documented as of this encounter Visit Diagnoses Not on filedocumented in this encounter Care Teams Scallop Cutter Relationship Specialty Start Date End Date Katheryn Miles APRN PCP - General 05/30/19 [address] [place] [id number] documented as of this encounter
--- OUTSIDE RECORDS SUMMARY | 2021-07-04 08:13 | XMS_ITS | Encounter Summary ---
:1985 Author Organization [facility] Address [address] [place] [address] Care Team Providers Name Role Phone Katheryn Miles APRN Primary Care Provider [phone] Reason for Visit Reason Comments Annual Exam Encounter Details Date Type Department Care Team Description 11/29/2019 Follow-Up [facility] Katheryn Turk, Physical exam (Primary Dx); [address] [facility] Laboratory examination ordered as part o f a complete physical examination; [place] [address] [address] [facility] Influenza vaccination declined [phone] [place] [id number] (Wo rk) Social History Tobacco Use Types [...] on file documented as of this encounter Last Filed Vital Signs Vital Sign Reading Time Taken Comments Blood Pressure 116/79 11/29/2019 2:00 PM EST Pulse 85 11/29/2019 2:00 PM EST Temperature 36.5 ??C (97.7 ??F) 11/29/2019 2:00 PM EST Respiratory Rate 20 11/29/2019 2:00 PM EST Oxygen Saturation 98% 11/29/2019 2:00 PM EST Inhaled Oxygen Concentration - - Weight 93 kg (205 lb) 11/29/2019 2:00 PM EST Height - - Body Mass Index 36.31 11/23/2019 1:22 PM EST documented in this encounter Progress Notes Katheryn Miles, PET CARE ASSISTANT - 11/29/2019 2:20 PM EST Return Visit Note Health Literacy score: No flowsheet data found. Preferred language is Albanian Chief Concern(s): Chief Complaint Patient presents with ??? Annual Exam HPI: Shakila Grove is a 34 y.o. 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 No shortness of breathe. No palpitations, no lightheadness or dizziness, No nausea or vomting, No diarrhea or constipation No abdominal pain Started suboxone program in 07/19, Patient's medications, allergies, problem list, past medical, surgical, social and family histories were reviewed and updated as appropriate ROS: Review of Systems Constitutional: Negative for chills, fatigue and fever. HENT: Negative for ear discharge, ear pain, nosebleeds, sinus pressure and sore throat. Eyes: Negative for discharge, redness and visual disturbance. Respiratory: Negative for cough, chest tightness, shortness of breath and wheezing. Cardiovascular: Negative for chest pain, palpitations and leg swelling. Gastrointestinal: Negative for abdominal pain, constipation, diarrhea, nausea and vomiting. Endocrine: Negative for cold intolerance, heat intolerance, polydipsia, polyphagia and polyuria. Genitourinary: Negative for difficulty urinating, dysuria, flank pain, frequency and urgency. Musculoskeletal: Negative for back pain and joint swelling. Skin: Negative for rash. Neurological: Negative for dizziness, light-headedness and headaches. All other systems reviewed and are negative. Exam Vitals: BP 116/79 (Site: l a, Position: Sitting, Cuff Size: Medium) Pulse 85 Temp 97.7 ??F (36.5 ??C) (Oral) Resp 20 Wt 93 kg SpO2 98% BMI 36.31 kg/m?? (205 lbs.) Pain Score: 0 - No pain Physical Exam Constitutional: Appearance: She is well-developed. HENT: Head: Normocephalic and atraumatic. Right Ear: Tympanic membrane, ear canal and external ear normal. Left Ear: Tympanic membrane, ear canal and external ear normal. Nose: Nose normal. Mouth/Throat: Mouth: Mucous membranes are moist. Eyes: Pupils: Pupils are equal, round, and reactive to light. Neck: Musculoskeletal: Normal range of motion and neck supple. Cardiovascular: Rate and Rhythm: Normal rate and regular rhythm. Heart sounds: Normal heart sounds. Pulmonary: Effort: Pulmonary effort is normal. Breath sounds: Normal breath sounds. Abdominal: General: Bowel sounds are normal. Palpations: Abdomen is soft. Musculoskeletal: Normal range of motion. Skin: General: Skin is warm and dry. Neurological: Mental Status: She is alert and oriented to person, place, and time. Psychiatric: Behavior: Behavior normal. Recent Labs Lab Results Component Value Date CHOL 180 03/08/2017 LDL 117 (H) 03/08/2017 TRIG 95 03/08/2017 HDL 44 03/08/2017 No flowsheet data found. The ASCVD Risk score (Sharda BEEBE Jr., et al., 2013) failed to calculate for the following reasons: The 2013 ASCVD risk score is only valid for ages 40 to 79 Quality Screening [facility] Follow-up List [facility] Lifestyle Behavior Changes BMI: Abnormal BMI Follow-Up Plan 11/23/2019 BMI (Calculated) 36.7 Some recent data might be hidden SBIRT Score: No flowsheet data found. HITS Total Score: No flowsheet data found. Family Planning: No flowsheet data found. Depression Screen Total: No flowsheet data found. Assessment & Plan Shakila Grove is a 34 y.o. female Physical Exam Unremarkable exam Ordered labs, will call with positive result Other Orders ICD-10-CM 1. Physical exam Z00.00 2. Laboratory examination ordered as part of a complete physical examination Z00.00 Comprehensive metabolic panel CBC and differential TSH Urinalysis with microscopic (GH L LMW Q) Hemoglobin A1c Hepatitis C AB w/rfl RNA, PCR w/rfl genotype, LIPA (Q) HIV 1/2 ag/ab, w/reflexes (Q) Lipid panel 3. Influenza vaccination declined Z28.21 Follow-Up Return in about 1 year (around 11/29/2020), or if symptoms worsen or fail to improve. Health Maintenance Health Maintenance Topic Date Due ??? HIV screening 2002 ??? Prediabetes Surveillance 2005 ??? Pneumo Vaccine 19-64 Medium Risk (1 of 1 - PPSV23) 2006 ??? Cervical cancer screening (Pap Smear) 2008 ??? Influenza vaccine 05/31/2019 ??? Tetanus adult (Td q 10,TDAP once) 11/23/2029 Electronically Signed by Katheryn Miles APRN, November 29, 2019 documented in this encounter Miscellaneous Notes Result Martha Mena RN - 11/29/2019 2:20 PM EST Spoke to pt. esult Martha Mena RN - 11/29/2019 2:20 PM EST Attempted to reach. Voicemail is full. documented in this encounter Plan of Treatment Upcoming Encounters Date Type Specialty Care Team Description 07/08/2021 Appointment [facility] Francisco Torres, MS W documented as of this encounter Procedures Procedure Name Priority Date/Time Associated Comments Diagnosis DRUG TOX MONITORING 1, Routine 12/10/2019 10:30 R esults for this W/CONF, ORAL FLUID AM EST procedure are in (Q) the results section. HEPATITIS C AB W/RFL Routine 12/10/2019 10:30 Laboratory Res ults for this RNA, PCR W/RFL AM EST examination ordered proced ure are in GENOTYPE, LIPA (Q) as part of a the r esults complete physical section. examination HIV 1/2 AG/AB, Routine 12/10/2019 10:30 Laboratory Results f or this W/REFLEXES (Q) AM EST examination ordered pro cedure are in as part of a the results complete physical section. examination URINALYSIS WITH Routine 12/10/2019 10:30 Laboratory Results for this MICROSCOPIC (GH L AM EST examination ordered procedure are in LMW Q) as part of a the results complete physical section. examination CBC AND DIFFERENTIAL Routine 12/10/2019 10:30 Laboratory Res ults for this AM EST examination ordered procedur e are in as part of a the results complete physical section. examination TSH Routine 12/10/2019 10:30 Laboratory Results for this AM EST examination ordered procedur e are in as part of a the results complete physical section. examination HEMOGLOBIN A1C Routine 12/10/2019 10:30 Laboratory Results f or this AM EST examination ordered procedur e are in as part of a the results complete physical section. examination LIPID PANEL Routine 12/10/2019 10:30 Laboratory Results for this AM EST examination ordered procedur e are in as part of a the results complete physical section. examination COMPREHENSIVE Routine 12/10/2019 10:30 Laboratory Results fo r this METABOLIC PANEL AM EST examination ordered proce dure are in as part of a the results complete physical section. examination documented in this encounter Results Drug tox monitoring 1, w/conf, oral fluid (Q) (12/10/2019 10:30 AM EST) Amphetamines NEGATIVE <10 ng/mL [facility] Amphetamine, CANCELEDComment: [facility] Confirmation by GCMS, Result canceled by the LABORATOR Y Serum ancillary. Methamphetamine, CANCELEDComment: [facility] Confirmation by GCMS, Result canceled by the LABORATOR Y Serum ancillary. Barbiturates NEGATIVE <10 ng/mL [facility] Amobarbital, CANCELEDComment: [facility] Confirmation by GCMS, Result canceled by the LABORATOR Y Serum ancillary. Butalbital, CANCELEDComment: [facility] Confirmation by GCMS, Result canceled by the LABORATOR Y Serum ancillary. Pentobarbital, CANCELEDComment: [facility] Confirmation by GCMS, Result canceled by the LABORATOR Y Serum ancillary. Phenobarbital, CANCELEDComment: [facility] Confirmation by GCMS, Result canceled by the LABORATOR Y Serum ancillary. Secobarbital, CANCELEDComment: [facility] Confirmation by GCMS, Result canceled by the LABORATOR Y Serum ancillary. Benzodiazepines NEGATIVE <0.50 [facility] ng/mL [facility] Alprazolam Verif, by CANCELEDComment: [facility] GCMS, Serum Result canceled by the LABORATORY ancillary. Chlordiazepoxide CANCELEDComment: [facility] Result canceled by the LABORATORY ancillary. Clonazepam CANCELEDComment: [facility] Result canceled by the LABORATORY ancillary. Diazepam CANCELEDComment: [facility] Result canceled by the LABORATORY ancillary. Flunitrazepam CANCELEDComment: [facility] Result canceled by the LABORATORY ancillary. Flurazepam CANCELEDComment: [facility] Result canceled by the LABORATORY ancillary. Lorazepam Verif, by CANCELEDComment: [facility] GCMS, Serum Result canceled by the LABORATORY ancillary. Midazolam CANCELEDComment: [facility] Result canceled by the LABORATORY ancillary. Nordiazepam Verif, by CANCELEDComment: [facility] GCMS, Serum Result canceled by the LABORATORY ancillary. Oxazepam Verif, by CANCELEDComment: [facility] GCMS, Serum Result canceled by the LABORATORY ancillary. Temazepam CANCELEDComment: [facility] Result canceled by the LABORATORY ancillary. Triazolam CANCELEDComment: [facility] Result canceled by the LABORATORY ancillary. Buprenorphine POSITIVE (A) <0.10 [facility] ng/mL [facility] Buprenorphine >25.00 (H) <0.10 [facility] ng/mL [facility] Naloxone 23.20 (H) <0.25 [facility] ng/mL [facility] Norbuprenorphine 3.79 (H) <0.50 [facility] Comment: ng/mL [facility] ? Norbuprenorphine is a metabolite of buprenorphine. Cocaine, Confirmation NEGATIVE <5.0 ng/mL [facility] by GCMS, Serum LABORATORY Benzoylecgonine CANCELEDComment: [facility] Result canceled by the LABORATORY ancillary. Cocaine Confirmation CANCELEDComment: [facility] Result canceled by the LABORATORY ancillary. Fentanyl NEGATIVE <0.10 [facility] ng/mL [facility] Fentanyl CANCELEDComment: [facility] Result canceled by the LABORATORY ancillary. Heroin Metabolite NEGATIVE <1.0 ng/mL [facility] Heroin Metabolite CANCELEDComment: [facility] Result canceled by the LABORATORY ancillary. Marijuana NEGATIVE <2.5 ng/mL [facility] THC, Confirmation by CANCELEDComment: [facility] GCMS, Serum Result canceled by the LABORATORY ancillary. MDMA, Confirmation by NEGATIVE <10 ng/mL [facility] GCMS, Serum LABORATORY MDMA, Confirmation by CANCELEDComment: [facility] GCMS, Serum Result canceled by the LABORATORY ancillary. Meprobamate Lvl NEGATIVE <2.5 ng/mL [facility] Caraisoprodol CANCELEDComment: [facility] Result canceled by the LABORATORY ancillary. Meprobamate Lvl CANCELEDComment: [facility] Result canceled by the LABORATORY ancillary. Methadone NEGATIVE <5.0 ng/mL [facility] EDDP CANCELEDComment: [facility] Result canceled by the LABORATORY ancillary. Methadone CANCELEDComment: [facility] Result canceled by the LABORATORY ancillary. Nicotine and POSITIVE (A) <5.0 ng/mL [facility] metabolites [facility] Cotinine >250.0 (H)Comment: <5.0 ng/mL [facility] Cotinine is a LABORATORY metabolite of nicotine. Opiates NEGATIVE <2.5 ng/mL [facility] Codeine, Confirmation CANCELEDComment: [facility] by GCMS, Serum Result canceled by the LABORATORY ancillary. Dihydrocodeine CANCELEDComment: [facility] Result canceled by the LABORATORY ancillary. Hydrcodone, CANCELEDComment: [facility] Confirmation by GCMS, Result canceled by the LABORATOR Y Serum ancillary. Hydromorphone, CANCELEDComment: [facility] Confirmation by GCMS, Result canceled by the LABORATOR Y Serum ancillary. Morphine, Confirmation CANCELEDComment: [facility] by GCMS, Serum Result canceled by the LABORATORY ancillary. Norhydrocodone CANCELEDComment: [facility] Result canceled by the LABORATORY ancillary. Noroxycodone CANCELEDComment: [facility] Result canceled by the LABORATORY ancillary. Oxycodone, CANCELEDComment: [facility] Confirmation by GCMS, Result canceled by the LABORATOR Y Serum ancillary. Oxymorphone CANCELEDComment: [facility] Result canceled by the LABORATORY ancillary. Phencyclidine NEGATIVE <10 ng/mL [facility] Phencyclidine CANCELEDComment: [facility] Result canceled by the LABORATORY ancillary. Tapentadol NEGATIVE <5.0 ng/mL [facility] Tapentadol CANCELEDComment: [facility] Result canceled by the LABORATORY ancillary. Tramadol NEGATIVE <5.0 ng/mL [facility] Tramadol CANCELEDComment: [facility] Result canceled by the LABORATORY ancillary. Zolpidem NEGATIVE <5.0 ng/mL [facility] Comment: LAB[facility]ORY For additional information, please refer to http://education.web2media.sk/faq/UAJ273 (This link is being provided for informational/ educational purposes only.) This drug testing is for medical treatment only. Analysis was performed as non-forensic testing and these results should be used only by healthcare providers to render diagnosis or treatment, or to monitor progress of medical conditions. For assistance with interpreting these drug results, please contact a [facility] Specialist: [phone] ( ), M-F, 8am-6pm EST. These tests were developed and their analytical performance characteristics have been determined by [facility]. They have not been cleared or approved by the FDA. These assays have been validated pursuant to the CLIA regulations and are used for clinical purposes. Zolpidem CANCELEDComment: [facility] Result canceled by the LABORATORY ancillary. Specimen Narrative [facility] - 12/13/2019 3:[address] [facility] DRUG SCREEN RESULT TO ELEN CALHOUN FASTING:NO FASTING: NO Performing Organization Address City/State/ZIP Code Phon e Number [facility] [address] [place] [address] Lipid panel (12/10/2019 10:30 AM EST) [facility] Signature Cholesterol, Total 187 <200 mg/dL [facility] HDL 31 (L) > OR = 50 [facility] mg/dL Triglycerides 635 (H) <150 mg/dL [facility] Comment: If a non-fasting specimen was collected, consider repeat triglyceride testing on a fasting specimen if clinically indicated. Graff et al. J. of Clin. Lipidol. 2015;9:129-169. There is increased risk of pancreatitis when the triglyceride concentration is very high (> or = 500 mg/dL, especially if > or = 1000 mg/dL). Dajuan et al. J. of Clin. Lipidol. 2015;9:129-169. LDL Cholesterol [facility] Comment: LDL cholesterol not calculated. Triglyceride levels greater than 400 mg/dL invalidate calculated LDL resul ts. Reference range: <100 Desirable range <100 mg/dL for primary prevention; ?? <70 mg/dL for patients with CHD or diabetic patients with > or = 2 CHD risk factors. LDL-C is now calculated using the Lidia calculation, which is a validated novel method providi ng better accuracy than the Friedewald equation in the estimation of LDL-C. Olaf SS et al. LILIAN. 2013;310(19): 9515-6194 (http://education.[facility].com/faq/FPK757) Chol/HDL Ratio 6.0 (H) <5.0 (calc) [facility] Non-HDL Cholesterol 156 (H) <130 mg/dL [facility] Comment: (calc) For patients with diabetes plus 1 major ASCVD risk factor, treating to a non-HDL-C goal of <100 mg/dL (LDL-C of <70 mg/dL) is considered a therapeutic option. Specimen Blood [facility] - 12/13/2019 3:[address] CC DRUG SCREEN RESULT TO ELEN CALHOUN FASTING:NO FASTING: NO Performing Organization Address [facility] e Number [facility] [address] [place] [phone] HIV 1/2 ag/ab, w/reflexes (Q) (12/10/2019 10:30 AM EST) HIV Ag/Ab, 4th NON-REACTIVE NON-REACTIVE [facility] Generation Comment: HIV-1 antigen and HIV-1/HIV-2 antibodies were not detected. There is no laboratory evidence of HIV infection. PLEASE NOTE: This information has been disclosed to you from records whose confidentiality may be protected by state law. ??If your state requires such protection, then the state law prohibits you from making any further disclosure of the information without the specific written consent of the person to whom it pertains, or as otherwise permitted by law. A general authorization for the release of medical or other information is NOT sufficient for this purpose. ?? For additional information please refer to http://education.[facility]/faq/FHZ738 (This link is being provided for informational/ educational purposes only.) The performance of this assay has not been clinically validated in patients less than 2 years old. Specimen Blood [facility] - 12/13/2019 3:[address] CC DRUG SCREEN RESULT TO ELEN CALHOUN FASTING:NO FASTING: NO Performing Organization Address [facility] e Number [facility] [address] [place] [phone] Hepatitis C AB w/rfl RNA, PCR w/rfl genotype, LIPA (Q) (12/10/2019 10:30 AM EST) Hepatitis C Ab NON-REACTIVE NON-REACTIVE [facility] Signal To Cut-Off 0.02 <1.00 [facility] Comment: HCV antibody was non-reactive. There is no laboratory evidence of HCV infection. In most cases, no further action is required. However, if recent HCV exposure is suspected, a test for HCV RN A (test code 19832) is suggested. For additional information, please refer to http://education.web2media.sk/faq/RPQ880 (This link is being provided for informational/ educational purposes only.) Specimen Blood Narrative [facility] - 12/13/2019 3:[address] CC DRUG SCREEN RESULT TO ELEN CALHOUN FASTING:NO FASTING: NO Performing Organization Address [facility] e Number [facility] [address] [place] [phone] Hemoglobin A1c (12/10/2019 10:30 AM EST) Hemoglobin A1c 6.0 (H) <5.7 % of [facility] Comment: total Hgb For someone without known diabetes, a hemoglobin A1c value between 5.7% and 6.4% is consistent with prediabetes and should be confirmed with a follow-up test. For someone with known diabetes, a value <7% indicates that their diabetes is well controlled. A1c targets should be individualized based on duration of diabetes, age, comorbid conditions, and other considerations. This assay result is consistent with an increased risk of diabetes. Currently, no consensus exists regarding use of hemoglobin A1c for diagnosis of diabetes for children. Specimen Blood [facility] - 12/13/2019 3:[address] CC DRUG SCREEN RESULT TO ELEN CALHOUN FASTING:NO FASTING: NO Performing Organization Address [facility] e Number [facility] [address] [place] [phone] Urinalysis with microscopic (GH L LMW Q) (12/10/2019 10:30 AM EST) Color, UA DARK YELLOW YELLOW [facility] Appearance CLEAR CLEAR [facility] Specific [place], UA 1.027 1.001 - 1.035 [facility] pH 5.5 5.0 - 8.0 [facility] Glucose, UA NEGATIVE NEGATIVE [facility] Bilirubin NEGATIVE NEGATIVE [facility] Ketones, UA NEGATIVE NEGATIVE [facility] Occult Blood NEGATIVE NEGATIVE [facility] Protein, UA NEGATIVE NEGATIVE [facility] Nitrite, UA NEGATIVE NEGATIVE [facility] Leukocyte Esterase, NEGATIVE NEGATIVE [facility] UA WBC, UA NONE SEEN < OR = 5 /HPF [facility] RBC, UA NONE SEEN < OR = 2 /HPF [facility] Epithelial Cells, NONE SEEN < OR = 5 /HPF [facility] Squamous Epithelial Cells, CANCELEDComment < OR = 5 /HPF [facility] Transitional : Result canceled by the ancillary. Epithelial Cells, CANCELEDComment < OR = 3 /HPF [facility] Renal : Result canceled by the ancillary. Bacteria, UA NONE SEEN NONE SEEN /HPF [facility] Ca Oxalate Sejal, UA CANCELEDComment NONE OR FEW [facility] : Result /HPF canceled by the ancillary. Crystals, Triple CANCELEDComment NONE OR FEW [facility] Phosphate : Result /HPF canceled by the ancillary. Uric Acid Sejal, UA CANCELEDComment NONE OR FEW [facility] : Result /HPF canceled by the ancillary. Amorphous Sediment CANCELEDComment NONE OR FEW [facility] : Result /HPF canceled by the ancillary. Crystals CANCELEDComment NONE SEEN /HPF [facility] : Result canceled by the ancillary. Hyaline Casts, UA NONE SEEN NONE SEEN /LPF [facility] Granular Casts, UA CANCELEDComment NONE SEEN /LPF [facility] : Result canceled by the ancillary. Casts CANCELEDComment NONE SEEN /LPF [facility] : Result canceled by the ancillary. Yeast, UA CANCELEDComment NONE SEEN /HPF [facility] : Result canceled by the ancillary. Comments CANCELEDComment [facility] : Result canceled by the ancillary. Note: CANCELEDComment [facility] : Result canceled by the ancillary. Specimen Urine Narrative [facility] - 12/13/2019 3:[address] [facility] DRUG SCREEN RESULT TO ELEN CALHOUN FASTING:NO FASTING: NO Performing Organization Address City/State/ZIP Code Phon e Number [facility] [address] [place] [address] TSH (12/10/2019 10:30 AM EST) TSH, 3rd Generation 3.99 mIU/L [facility] Comment: ?Reference Range ?> or = 20 Years ??0.40-4.50 ? Ranges ?First trimester ?0.26-2.66 ?Second trimester ?? 0.55-2.73 ?Third trimester ?0.43-2.91 Specimen Blood Narrative [facility] - 12/13/2019 3:[address] CC DRUG SCREEN RESULT TO ELEN CALHOUN FASTING:NO FASTING: NO Performing Organization Address City/State/ZIP Code Phon e Number [facility] [address] [place] [address] CBC and differential (12/10/2019 10:30 AM EST) WBC 6.6 3.8 - 10.8 [facility] Thousand/uL RBC 4.57 3.80 - 5.10 [facility] Million/uL Hemoglobin 13.7 11.7 - 15.5 [facility] g/dL Hematocrit 39.5 35.0 - 45.0 [facility] % MCV 86.4 80.0 - 100.0 [facility] fL MCH 30.0 27.0 - 33.0 [facility] pg MCHC 34.7 32.0 - 36.0 [facility] g/dL RDW 13.2 11.0 - 15.0 [facility] % Platelets 228 140 - 400 [facility] Thousand/uL MPV 10.1 7.5 - 12.5 [facility] fL Neutrophils Absolute 3,577 1,500 - [facility] 7,800 cells/uL Neutrophils Absolute CANCELEDComment: 0 - 750 [facility] Result canceled cells/uL by the ancillary. Metamyelocytes CANCELEDComment: 0 cells/uL [facility] Absolute Result canceled by the ancillary. Myelocytes, Absolute CANCELEDComment: 0 cells/uL [facility] Result canceled by the ancillary. Promyelocytes Absolute CANCELEDComment: 0 cells/uL [facility] RY Result canceled by the ancillary. Lymphocytes Absolute 2,442 850 - 3,900 [facility] cells/uL Monocytes Absolute 475 200 - 950 [facility] cells/uL Eosinophils Absolute 73 15 - 500 [facility] cells/uL Basophils Absolute 33 0 - 200 [facility] cells/uL Blasts Absolute CANCELEDComment: 0 cells/uL [facility] Result canceled by the ancillary. RBC, Absolute CANCELEDComment: 0 cells/uL [facility] Nucleated Result canceled by the ancillary. Neutrophils 54.2 % [facility] Neutrophils, Band CANCELEDComment: % [facility] Result canceled by the ancillary. Metamyelocytes CANCELEDComment: % [facility] Result canceled by the ancillary. Myelocytes CANCELEDComment: % [facility] Result canceled by the ancillary. Promyelocytes CANCELEDComment: % [facility] Result canceled by the ancillary. Lymphocytes 37.0 % [facility] Lymphocytes, Reactive CANCELEDComment: 0 - 10 % [facility] Y Result canceled by the ancillary. Monocytes 7.2 % [facility] Eosinophils 1.1 % [facility] Basophils 0.5 % [facility] Blasts CANCELEDComment: % [facility] Result canceled by the ancillary. nRBC CANCELEDComment: 0 /100 WBC [facility] Result canceled by the ancillary. Comments CANCELEDComment: [facility] Result canceled by the ancillary. Specimen Blood Narrative [facility] - 12/13/2019 3:[address] CC DRUG SCREEN RESULT TO ELEN CALHOUN FASTING:NO FASTING: NO Performing Organization Address City/State/ZIP Code Phon e Number [facility] [address] [place] [address] Comprehensive metabolic panel (12/10/2019 10:30 AM EST) Glucose 135 65.00 - [facility] Comment: 139.00 mg/dL ? Non-fasting reference interval BUN 13 7.0 - 25.0 [facility] mg/dL Creatinine 0.80 0.50 - 1.10 [facility] mg/dL eGFR (NON 98 > OR = 60 [facility]) mL/min/1.73m2 eGFR (Afr Amer) 113 > OR = 60 [facility] mL/min/1.73m2 BUN/Creatinine NOT APPLICABLE 6 - 22 (calc) [facility] Ratio Sodium 138 135 - 146 [facility] mmol/L Potassium 4.7 3.5 - 5.3 [facility] mmol/L Chloride 102 98 - 110 [facility] mmol/L CO2 25 20 - 32 [facility] mmol/L Calcium 9.4 8.6 - 10.2 [facility] mg/dL Protein, Total 6.9 6.1 - 8.1 [facility] g/dL Albumin 4.4 3.6 - 5.1 [facility] g/dL Globulin 2.5 1.9 - 3.7 [facility] g/dL (calc) Albumin/Globulin 1.8 1.0 - 2.5 [facility] Ratio (calc) Bilirubin, Total 0.3 0.2 - 1.2 [facility] mg/dL Alkaline 84 31 - 125 U/L [facility] Phosphatase AST 19 10 - 30 U/L [facility] ALT 21 6 - 29 U/L [facility] Specimen Blood Narrative [facility] - 12/13/2019 3:[address] CC DRUG SCREEN RESULT TO ELEN CALHOUN FASTING:NO FASTING: NO Performing Organization Address City/State/ZIP Code Phon e Number [facility] [address] [place] [phone] documented in this encounter Visit Diagnoses Diagnosis Physical exam - Primary Laboratory examination ordered as part o f a complete physical examination Influenza vaccination declined documented in this encounter Care Teams Economic Developer Relationship Specialty Start Date End Date Katheryn Miles APRN PCP - General 05/30/19 [facility] [place] [address] documented as of this encounter
--- OUTSIDE RECORDS SUMMARY | 2021-07-04 08:13 | XMS_ITS | Encounter Summary ---
:1985 Author Organization [facility] Address [address] [place] [address] Care Team Providers Name Role Phone Katheryn Miles APRN Primary Care Provider [phone] Encounter Details Date Type Department Care Team Description 06/16/2020 Plan of Care Documentation Social History Tobacco [...] documented as of this encounter Miscellaneous Notes [facility]-Behavioral Health - Francisco Torres MSW - 09/04/2020 4:10 PM EST [facility] Outpatient Behavioral Health Interdisciplinary Treatment Plan [place] [id number] 06/08/2020-09/08/2020 Overview: Current Diagnosis: Problem List ICD-10-CM 09/07/19 [facility] AB OP Opioid use disorder, severe, dependence [...] back to that sad, depressed, hopeless place. Utility Helicopter Repairer Goal(s): Medication compliance/adjustments and Demonstrated use of positive/appropriate coping mechanisms Target Date: 09/08/2020 Short Term Goal/Objective: Patient will identify triggers related to altered mood as evidenced by??? Learning two ways to manage frustration in a positive manner. Target Date: 09/08/20 Status: Minimal progress Short Term Goal/Objective: Patient will return to baseline level of functioning as evidenced by??? Assessing personal risk traits and resiliency traits and discuss the role each plays in coping with daily stresses during the time between therapy sessions. Target Date: 09/08/20 Status: Minimal progress Intervention/Frequency: Provide counseling and emotional support 1x weekly therapy session - utilizing, VT, CBT, and continued attendance in pathways to recovery. Intervention/Frequency: Facilitate goal setting 1x weekly therapy session utilizing, VT, CBT, medication management with Suresh Baeza MD and continued attendance in pathways to recovery once available ?? Substance Use / Abuse: Active Descriptive Behaviors: Polysubstance use d/o sx: daily cravings, triggers come frequently, inability to refuse the substance, poor distress tolerance- using drugs as stress relief technique Patient Stated Goal(s): I want to keep from relapsing. Utility Helicopter Repairer Goal(s): Re-establish sobriety, identify connection between psychiatric symptoms and substance abuse and develop an active relapse prevention plan and Demonstrated use of positive/appropriate coping mechanisms Target Date: 09/08/2020 Short Term Goal/Objective: Patient will report a decrease in substance use as evidenced by ??? Client will learn min. two ways to regulate her distress (or mood, or anxiety, or depression) without useof mood-altering substances . Target Date: 09/08/20 Status: achieved and ongoing Short Term Goal/Objective: Patient will increase awareness of triggers/cravings to substance use asevidenced by ??? keeping a personal cravings/ triggers journal- documenting each craving and scaling0-10 how severe. Target Date: 09/08/20 Status: Achieved and ongoing Intervention/Frequency: Encourage identification/practice/mastery of adaptive coping skills 1x weekly therapy session utilizing, VT, CBT, medication management with Suresh Baeza MD and continued attendance in pathways to recovery once available Intervention/Frequency: Facilitate patient identifying triggers/cravings 1x weekly therapy session utilizing, VT, CBT, medication management with Suresh Baeza MD and continued attendance in pathways to recovery [...] other medical provider, therapist, community resource, etc.) Other psychosocial and environmental problems: Family members actively use Refer: Referred to Group Therapy Medical / Psychological Assessments: Medications: Assessment of medication side effects and/or adverse medication reactions is ongoing Current Outpatient Medications Medication Sig ??? buprenorphine-naloxone (SUBOXONE) 8-2 mg per sublingual film Place 1 Film under the tongue 2 (two) times daily. ??? buPROPion (WELLBUTRIN XL) 300 mg XL 24 hr extended release tablet Take 1 tablet (300 mg total) by mouth every morning. ??? fenofibric acid - choline (TRILIPIX) 135 mg capsule Take 1 capsule (135 mg total) by mouth daily. ??? traZODone (DESYREL) 50 mg tablet 1-2 tabs at HS PRN insomnia No current facility-administered medications for this visit. Consult / Referral Made: Primary Care Provider Discharge Planning: Anticipated Discharge Date: TBD Anticipated Discharge Level of Care/ Disposition: To be determined Plan: Client has made minimal progress during the 03/08/2020-06/08/2020 review period. She attended 10 individual counseling sessions, currently attending weekly. She attended 6 medication management appointments with Suresh Baeza MD. Current RX of suboxone 8/2 mg sublingual film BID, Chantix 2mg [facility], WellbutrinXL 150mg. She discontinued trazadone 100mg. The suboxone appears effective in treating her opioid use disorder evidenced by urine drug screenings on 05/07/2002- BUP & THC, & - B[facility] only.. Rapport has improved over the last treatment review period evidenced by client's willingness to discuss trauma history and engagement during weekly sessions. BASIS-24 scores are not currently available. Future scores will be assessed to measure progress in treatment. Client is not an imminent risk toherself or others. MD Certification: Services in treatment plan are [...] on filedocumented in this encounter Care Teams Security Intelligence Analyst Relationship Specialty Start Date End Date Katheryn Miles APRN PCP - General 05/30/19 [facility] [place] [id number] documented as of this encounter
--- OUTSIDE RECORDS SUMMARY | 2021-07-04 08:13 | XMS_ITS | Encounter Summary ---
:1985 Author Organization [facility] Address [address] [place] [address] Care Team Providers Name Role Phone Katheryn Miles APRN Primary Care Provider [phone] Encounter Details Date Type Department Care Team Description 12/15/2020 Scanned Document [facility] Franci Wagner MD [facility] [address] [facility] [address] [place] [phone] (Wo rk) Social History Tobacco Use Types [...] documented in this encounter Results Lab Scan (12/10/2020) Narrative This result has an attachment that is no t available. documented in this encounter Visit Diagnoses Not on filedocumented in this encounter Additional Health Concerns Infection Onset Date Last Indicated Resolved Time R/O COVID-19 06/20/2021 06/20/2021 06/20/2021 5:06 AM EDT MRSAComment: Body fluid 06/20/21 06/20/2021 06/22/2021 documented as of this encounter Care Teams Packer Denture Relationship Specialty Start Date End Date Katheryn Miles APRN PCP - General 05/30/19 [place] [phone] documented as of this encounter
--- OUTSIDE RECORDS SUMMARY | 2021-07-04 08:13 | XMS_ITS | Encounter Summary ---
:1985 Author Organization [facility] Address [address] [place] [address] Care Team Providers Name Role Phone Katheryn Miles APRN Primary Care Provider [phone] Reason for Visit Reason Comments Medication Refill Encounter Details Date Type Department Care Team Description 10/03/2019 Refill [facility] Esteban Kaufman APRN Medication Refill [address] [facility] [address] [place] [address] [place] [address] (Wo rk) Social History Tobacco Use Types [...] Team Description 07/08/2021 Appointment Behavioral Health Francisco Torers MS W documented as of this encounter Visit Diagnoses Diagnosis Opiate dependence, continuous (HC Code) Opioid type dependence, continuous documented in this encounter Care Teams Microfilming Document Preparer Relationship Specialty Start Date End Date Katheryn Miles APRN PCP - General 05/30/[address] [place] [address] [place] [address] documented as of this encounter
--- OUTSIDE RECORDS SUMMARY | 2021-07-04 08:13 | XMS_ITS | Encounter Summary ---
:1985 Author Organization [facility] Address [address] [place] [address] Care Team Providers Name Role Phone Katheryn Miles APRN Primary Care Provider [phone] Reason for Visit Reason Comments Appointment reschedule appointment Encounter Details Date Type Department Care Team Description 01/15/2020 Telephone [facility] Mukund Welsh Appointment (reschedule [address] [facility], DPM appointment) [place] [address] [address] [facility] [phone] [place] [phone] (Wo rk) Social History Tobacco Use Types [...] been in contact with No / Unsure 01/15/2020 10:28 AM EDT someone who was confirmed or suspected to have Coronavirus / COVID-19? documented as of this encounter Miscellaneous Notes Telephone Encounter - Julius Cooper - 01/15/2020 1:56 PM EDT Left message for patient to reschedule appointment documented in this encounter Plan of Treatment Upcoming Encounters Date Type Specialty Care Team Description 07/08/2021 Appointment Behavioral Health Francisco Torres, MS W documented as of this encounter Visit Diagnoses Not on filedocumented in this encounter Care Teams Basting Puller Relationship Specialty Start Date End Date Katheryn Miles APRN PCP - General 05/30/19 [facility] [place] [address] documented as of this encounter
--- OUTSIDE RECORDS SUMMARY | 2021-07-04 08:13 | XMS_ITS | Encounter Summary ---
:1985 Author Organization [facility] Address [address] [place] [phone] Care Team Providers Name Role Phone Katheryn Miles APRN Primary Care Provider [phone] Encounter Details Date Type Department Care Team Description 02/05/2020 Travel Social History Tobacco Use Types Packs/Day [...] been in contact with No / Unsure 02/05/2020 7:50 AM EDT someone who was confirmed or suspected to have Coronavirus / COVID-19? documented as of this encounter Plan of Treatment Upcoming Encounters Date Type Specialty Care Team Description 07/08/2021 Appointment Behavioral Health Francisco Torres, MS W documented as of this encounter Visit Diagnoses Not on filedocumented in this encounter Care Teams Food Checker Relationship Specialty Start Date End Date Katheryn Miles APRN PCP - General 05/30/19 [place] [address] documented as of this encounter
--- OUTSIDE RECORDS SUMMARY | 2021-07-04 08:13 | XMS_ITS | Encounter Summary ---
:1985 Author Organization [facility] Address [address] [place] [address] Care Team Providers Name Role Phone Katheryn Miles APRN Primary Care Provider [phone] Encounter Details Date Type Department Care Team Description 01/06/2021 Scanned Document [facility] Franci Wagner MD [facility] [address] [facility] [address] [place] [phone] (Wo rk) Social History Tobacco Use Types [...] Associated Diagnosis Comme nts LAB SCAN Routine 12/26/2020 documented in this encounter Results Lab Scan (12/26/2020) Narrative This result has an attachment that is no t available. documented in this encounter Visit Diagnoses Not on filedocumented in this encounter Additional Health Concerns Infection Onset Date Last Indicated Resolved Time R/O COVID-19 06/20/2021 06/20/2021 06/20/2021 5:06 AM EDT MRSAComment: Body fluid 06/20/21 06/20/2021 06/22/2021 documented as of this encounter Care Teams Coat Examiner Relationship Specialty Start Date End Date Katheryn Miles APRN PCP - General 05/30/19 [facility] [place] [phone] documented as of this encounter
--- OUTSIDE RECORDS SUMMARY | 2021-07-04 08:13 | XMS_ITS | Encounter Summary ---
:1985 Author Organization [facility] Address [address] [place] [phone] Care Team Providers Name Role Phone Katheryn Miles APRN Primary Care Provider [phone] Encounter Details Date Type Department Care Team Description 12/26/2019 Travel Social History Tobacco Use Types Packs/Day [...] on filedocumented in this encounter Care Teams Brush Head Maker Relationship Specialty Start Date End Date Katheryn Miles APRN PCP - General 05/30/19 [place] [address] documented as of this encounter
--- OUTSIDE RECORDS SUMMARY | 2021-07-04 08:13 | XMS_ITS | Encounter Summary ---
:1985 Author Organization [facility] Address [address] [place] [phone] Care Team Providers Name Role Phone Katheryn Miles APRN Primary Care Provider [phone] Encounter Details Date Type Department Care Team Description 02/12/2020 Travel Social History Tobacco Use Types Packs/Day [...] been in contact with No / Unsure 02/12/2020 7:55 AM EDT someone who was confirmed or suspected to have Coronavirus / COVID-19? documented as of this encounter Plan of Treatment Upcoming Encounters Date Type Specialty Care Team Description 07/08/2021 Appointment Behavioral Health Francisco Torres, MS W documented as of this encounter Visit Diagnoses Not on filedocumented in this encounter Care Teams Railroad Supervisor Of Engines Relationship Specialty Start Date End Date Katheryn Miles APRN PCP - General 05/30/19 [place] [address] documented as of this encounter
--- OUTSIDE RECORDS SUMMARY | 2021-07-04 08:13 | XMS_ITS | Encounter Summary ---
:1985 Author Organization [facility] Address [address] [place] [address] Care Team Providers Name Role Phone Katheryn Miles APRN Primary Care Provider [phone] Encounter Details Date Type Department Care Team Description 12/11/2020 Plan of Care Documentation [facility] [address] [place], [place] [phone] Social History Tobacco Use Types Packs/Day Years [...] as of this encounter Miscellaneous Notes [facility]-Behavioral Health - Francisco Torres MSW - 01/09/2021 3:09 PM EST [facility] Interdisciplinary Treatment Plan Methadone Maintenance Treatment Program [place] [id number] 12/10/2020-01/07/2021 Overview: Current Diagnosis: Problem List ICD-10-CM 09/07/19 [facility] AB OP Opioid use disorder, severe, dependence (HC Code) F11.20 Cocaine use disorder, moderate, dependence (HC Code) 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 Barriers I sometimes self sabotage. Recovery Capital: Family SupportsPersonal StrengthsFuture Goals Client Presented today to transfer to [facility] from [facility]. Client reports she stopped taking her suboxone 8-2 mg BID in September 2020 and had been using 1-3 bundles a day, route smoking. Aneesh also endorses smoking crack cocaine and methadone off the street. She discussed strained relationship children in foster care as a contributing to her relapse. UTOX upon admission was + for THC, MTD, OPI, & LIZZETH. Hatchery Helper utilized NV techniques to explore thoughts and feelings and illicit motivation for change. She denied any urges or cravings. Previous UTOX on 08/05/2020 & 10/10/2020 positive for [facility] only however client endorsed falisifying drug screens. D/t continued use of opiate and non adherence to treatment plan client is appropriate to transfer for [facility] to [facility] as she will benefit from increased structure of a [facility]. NV techniques were used to discuss self care and positive reframing. Clientdiscussed relapse prevention techniques including personal boundaries and crafting. She denied any changes in mood, energy, or sleep. She denies any SI/HI/AH/VH. Will benefit from daily MTD dosing, 2-4 X a month individual counseling utilizing NV and CBT techniques, continued medication management with Suresh Baeza MD, and coordination of care with primary care as needed. Active Multidisciplinary Problems: Interdisciplinary Problem List Mood Alteration: Active Descriptive Behaviors: Substance induced mood disorder: client reports racing thoughts, moving fromone task to another quickly, depressive symptoms for weeks at a time, client reports current not struggling. Has discontinued psychiatric medications. Will encourage compliance with treatment plan Patient Stated Goal(s): I don't want to get back to that sad, depressed, hopeless place. Hand Hardener Goal(s): Medication compliance/adjustments and Demonstrated use of positive/appropriate coping mechanisms Target Date: 01/07/2021 Short Term Goal/Objective: Patient will identify triggers related to altered mood as evidenced by??? Learning two ways to manage frustration in a positive manner. Target Date: 01/07/2021 Status: Minimal progress Short Term Goal/Objective: Patient will return to baseline level of functioning as evidenced by??? Assessing personal risk traits and resiliency traits and discuss the role each plays in coping with daily stresses during the time between therapy sessions. Target Date: 01/07/2021 Status: Minimal progress Intervention/Frequency: Provide counseling and emotional support 1x weekly therapy session - utilizing, NV, CBT, and continued attendance in pathways to recovery. Intervention/Frequency: Facilitate goal setting 1x weekly therapy session utilizing, NV, CBT, medication management with Suresh Baeza MD and continued attendance in pathways to recovery once available ?? Substance Use / Abuse: Active Descriptive Behaviors: Polysubstance use d/o sx: daily cravings, triggers come frequently, inability to refuse the substance, poor distress tolerance- using drugs as stress relief technique, Relapsed 2019. Was not transparent about substance use. Will benefit from HLOC and MMTP at this time. Patient Stated Goal(s): I need help.. I stopped taking the suboxone. Hand Hardener Goal(s): Re-establish sobriety, identify connection between psychiatric symptoms and substance abuse and develop an active relapse prevention plan and Demonstrated use of positive/appropriate coping mechanisms Target Date: 01/07/2021 Short Term Goal/Objective: Patient will report a decrease in substance use as evidenced by ??? Client will learn min. two ways to regulate her distress (or mood, or anxiety, or depression) without useof mood-altering substances . Target Date: 01/07/2021 Status: minimal progress Short Term Goal/Objective: Patient will increase awareness of triggers/cravings to substance use asevidenced by ??? keeping a personal cravings/ triggers journal- documenting each craving and scaling0-10 how severe. Target Date: 01/07/2021 Status: Minimal progress Intervention/Frequency: Encourage identification/practice/mastery of adaptive coping skills 1x weekly therapy session utilizing, NV, CBT, medication management with Suresh Baeza MD and continued attendance in pathways to recovery once available Intervention/Frequency: Facilitate patient identifying triggers/cravings 1x weekly therapy session utilizing, NV, CBT, medication management with Suresh Baeza MD [...] tongue 2 (two) times daily. ??? buPROPion XL (WELLBUTRIN XL) 300 mg [...] / Referral Made: [facility] Discharge Planning: Anticipated Discharge Date: TBD Anticipated Discharge Level of Care/ Disposition: To be determined Plan: Client as been transferred [facility] d/t requiring a H[facility] effective 12/10/2020. Will benefit from daily MTD dosing, 2-4 X a month individual counseling utilizing NV and CBT techniques, continued assessment to determine the appropriateness of medication management, and coordination of care with primary care as needed. MD Certification: Services in treatment [...] on filedocumented in this encounter Care Teams Faculty Neuropsychologist Relationship Specialty Start Date End Date Katheryn Miles APRN PCP - General 05/30/19 [address] [place] [address] documented as of this encounter
--- OUTSIDE RECORDS SUMMARY | 2021-07-04 08:13 | XMS_ITS | Encounter Summary ---
:1985 Author Organization [facility] Address [address] [place] [address] Care Team Providers Name Role Phone Katheryn Miles APRN Primary Care Provider Encounter Details Date Type Department Care Team Description 12/10/2020 Scanned Document [facility] Yobanimelvinshad [facility] [address] [place], [place] [phone] Social History Tobacco Use Types Packs/Day Years [...] documented as of this encounter Care Teams Hyperion Analyst Relationship Specialty Start Date End Date Katheryn Miles APRN PCP - General 05/30/19 [address] [place] [address] documented as of this encounter
--- OUTSIDE RECORDS SUMMARY | 2021-07-04 08:13 | XMS_ITS | Encounter Summary ---
:1985 Author Organization [facility] Address [address] [place] [address] Care Team Providers Name Role Phone Katheryn Miles APRN Primary Care Provider [phone] Encounter Details Date Type Department Care Team Description 12/10/2020 Hospital Encounter [facility] Podsadocarissa, Opio id use disorder, MAINTENANCE Lizbet severe, dependence [address] [facility] (HC Code) [place] [address] Social History Tobacco Use Types Packs/Day Years [...] Notes Office/Comment Note - Lizbet Slade - 12/10/2020 11:00 AM EST This group underwriter met with client in person and introduced self. This group underwriter informed client of this group underwriter's roll in the department, as well as case management services and other resources available. This group underwriter provided contact information so client can reach this group underwriter as needed for additional supports.This group underwriter filled out the [facility] intake with client. documented in this encounter Plan of Treatment Upcoming Encounters Date Type Specialty Care Team Description 07/08/2021 Appointment Behavioral Health Francisco Torres, MS W documented as of this encounter Visit Diagnoses Diagnosis Opioid use disorder, severe, dependence (HC Code) documented in this encounter Care Teams Juvenile Justice Specialist Relationship Specialty Start Date End Date Katheryn Miles APRN PCP - General 05/30/19 [facility] [place], [place] [address] documented as of this encounter
--- OUTSIDE RECORDS SUMMARY | 2021-07-04 08:13 | XMS_ITS | Encounter Summary ---
:1985 Author Organization [facility] Address [address] [place] [address] Care Team Providers Name Role Phone Katheryn Miles APRN Primary Care Provider [phone] Encounter Details Date Type Department Care Team Description 01/09/2021 Plan of Care Documentation [facility] MA[facility]CE [address] [place], [place] [id number] Social History Tobacco Use Types Packs/Day Years [...] documented as of this encounter Miscellaneous Notes [facility]-Behavioral Health - Francisco Torres MSW - 03/23/2021 3:25 PM EDT [facility] Interdisciplinary Treatment Plan Methadone Maintenance Treatment Program [place] [id number] 01/07/2021- 03/09/2021 Overview: Current Diagnosis: Problem List ICD-10-CM 09/07/19 [facility]H OP Opioid use disorder, severe, dependence (HC Code) F11.20 Cocaine use disorder, moderate, dependence (HC Code) 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 Barriers I sometimes self sabotage. Recovery Capital: Family SupportsPersonal StrengthsFuture Goals Client has mad minimal progress during the 12/10/2020- 01/07/2021 review period. She attended 3 individual counseling sessions with this scenario writer. Client discontinued mediation management and is currently ambivalent about rescheduling. Client transfer to [facility] from [facility] on 12/10/2020 after she stopped taking her suboxone 8-2 mg BID in September 2020 and had been using 1-3 bundles a day, route smoking. Aneesh also endorses smoking crack cocaine and methadone off the street. She discussed strained relationship children in foster care as a contributing to her relapse.She is maintained on 55 mg MTD QD which she reports is comfotable, She reports not using opiates in 2 days and has abstained from Crack for 2 weeks. UTOX upon admission and on 12/26/2020 was + for THC, MTD, OPI, & LIZZETH. 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 She discussed starting new job on Tuesday and is hopeful for the opportunity. She is still pending a referral to [facility] virtual groups for additional supports. UT techniques were used to discuss relapse prevention techniquesincluding personal boundaries and crafting. She reports sleeping all day, low mood, no energy. She discontinued all psych meds in October 2020 and is ambivalent about rescheduling future appointments.She denies any SI/HI/AH/VH. Will benefit from daily MTD dosing, 2-4 X a month individual counselingutilizing UT and CBT techniques, continued medication management with [...] back to that sad, depressed, hopeless place. Snf Goal(s): Medication compliance/adjustments and Demonstrated use of positive/appropriate coping mechanisms Target Date: 03/09/2021 Short Term Goal/Objective: Patient will identify triggers related to altered mood as evidenced by??? Learning two ways to manage frustration in a positive manner. Target Date: 03/09/2021 Status: Minimal progress Short Term Goal/Objective: Patient will return to baseline level of functioning as evidenced by??? Assessing personal risk traits and resiliency traits and discuss the role each plays in coping with daily stresses during the time between therapy sessions. Target Date: 03/09/2021 Status: Minimal progress Intervention/Frequency: Provide counseling and emotional support 1x weekly therapy session - utilizing, UT, CBT, and continued attendance in pathways to recovery. Intervention/Frequency: Facilitate goal setting 1x weekly therapy session utilizing, UT, CBT, medication management with Suresh Baeza MD [...] need help.. I stopped taking the suboxone. Snf Goal(s): Re-establish sobriety, identify connection between psychiatric symptoms and substance abuse and develop an active relapse prevention plan and Demonstrated use of positive/appropriate coping mechanisms Target Date: 03/09/2021 Short Term Goal/Objective: Patient will report a decrease in substance use as evidenced by ??? Client will learn min. two ways to regulate her distress (or mood, or anxiety, or depression) without useof mood-altering substances . Target Date: 03/09/2021 Status: minimal progress Short Term Goal/Objective: Patient will increase awareness of triggers/cravings to substance use asevidenced by ??? keeping a personal cravings/ triggers journal- documenting each craving and scaling0-10 how severe. Target Date: 03/09/2021 Status: Minimal progress Intervention/Frequency: Encourage identification/practice/mastery of adaptive coping skills 1x weekly therapy session utilizing, UT, CBT, medication management with Suresh Baeza MD and continued attendance in pathways to recovery once available Intervention/Frequency: Facilitate patient identifying triggers/cravings 1x weekly therapy session utilizing, UT, CBT, medication management with Suresh Baeza MD [...] / Referral Made: [facility] Discharge Planning: Anticipated Discharge Date: TBD Anticipated Discharge Level of Care/ Disposition: To be determined Plan: Client as been transferred from [facility] to [facility] d/t requiring a HLOC effective 12/10/2020. Will [...] on filedocumented in this encounter Care Teams Concrete Smoother Relationship Specialty Start Date End Date Katheryn Miles APRN PCP - General 05/30/19 [facility] [place] [address] documented as of this encounter
--- OUTSIDE RECORDS SUMMARY | 2021-07-04 08:13 | XMS_ITS | Encounter Summary ---
:1985 Author Organization [facility] Address [address] [place] [phone] Care Team Providers Name Role Phone Katheryn Miles APRN Primary Care Provider [phone] Encounter Details Date Type Department Care Team Description 03/07/2020 Plan of Care Documentation Social History Tobacco [...] been in contact with No / Unsure 02/26/2020 8:23 AM EDT someone who was confirmed or suspected to have Coronavirus / COVID-19? documented as of this encounter Miscellaneous Notes [facility]-Behavioral Health - Francisco Torres MSW - 06/03/2020 3:14 PM EDT [facility] Outpatient Behavioral Health Interdisciplinary Treatment Plan [place] [id number] 03/08/2020-06/08/2020 Overview: Current Diagnosis: Problem List ICD-10-CM 09/07/19 [facility] OP Opioid use disorder, severe, dependence [...] back to that sad, depressed, hopeless place. 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 Learning two ways to manage frustration in a positive manner. Target Date: 06/08/20 Status: Minimal progress Short Term Goal/Objective: Patient will return to baseline level of functioning as evidenced by??? Assessing personal risk traits and resiliency traits and discuss the role each plays in coping with daily stresses during the time between therapy sessions. Target Date: 06/08/20 Status: Minimal progress Intervention/Frequency: Provide counseling and emotional support 1x weekly therapy session - utilizing, AL, CBT, and continued attendance in pathways to recovery. Intervention/Frequency: Facilitate goal setting 1x weekly therapy session utilizing, AL, CBT, and continued attendance in pathways to recovery. ?? Substance Use / Abuse: Active Descriptive Behaviors: Polysubstance use d/o sx: daily cravings, triggers come frequently, inability to refuse the substance, poor distress tolerance- using drugs as stress relief technique Patient Stated Goal(s): I want to keep from relapsing. Nursing Home Goal(s): Re-establish sobriety, identify connection between psychiatric symptoms and substance abuse and develop an active relapse prevention plan and Demonstrated use of positive/appropriate coping mechanisms Target Date: 06/08/2020 Short Term Goal/Objective: Patient will report a decrease in substance use as evidenced by ??? Client will learn min. two ways to regulate her distress (or mood, or anxiety, or depression) without useof mood-altering substances . Target Date: 06/08/20 Status: Minimal progress Short Term Goal/Objective: Patient will increase awareness of triggers/cravings to substance use asevidenced by ??? keeping a personal cravings/ triggers journal- documenting each craving and scaling0-10 how severe. Target Date: 03/08/20 Status: Minimal progress Intervention/Frequency: Encourage identification/practice/mastery of adaptive coping skills 1x weekly individual therapy sessions with ORTHOPEDIC DENTIST- utilizing AL, CBT and continued enrollment in pathways to recovery. Intervention/Frequency: Facilitate patient identifying triggers/cravings 1x weekly individual therapy sessions - utilizing AL, CBT and continued enrollment in pathways to recovery. ? Other Assessed Need(s) (Medical/Psychosocial) (List any other [...] tablet 1-2 tabs at HS PRN insomnia ??? varenicline (CHANTIX) 1 mg tablet 1 tab po BID. Do not continue to smoke on this medication No current facility-administered medications for this visit. Consult / Referral Made: Primary Care Provider Discharge Planning: Anticipated Discharge Date: TBD Anticipated Discharge Level of Care/ Disposition: To be determined Plan: Client has made minimal progress during the 12/09/2019-03/08/2020 review period. She attended 11 individual counseling sessions, currently attending weekly. She attended 8 medication management appointments with Suresh Baeza MD. Current RX of suboxone 8/2 mg sublingual film BID, Chantix 2mg GHS, WellbutrinXL 150mg, and trazadone 100mg. The suboxone appears effective in treating her opioid use disorder evidenced by urine drug screenings on 12/10, 12/12, 12/18, 12/25, 12/31, 01/07, & 01/15/2020 showing positive for BUP and THC only. Rapport has improved over the last treatment review period evidenced by client's willingness to discuss trauma history and engagement during weekly sessions. Last available BASIS-24 score was a 1.28 evidencing a moderate severity of symptoms. This can be related to psychosocialstressors. Future scores will be assessed to measure progress in treatment. Client is not an imminent risk to herself or others. MD Certification: Services in treatment [...] on filedocumented in this encounter Care Teams Barrel Charrer Helper Relationship Specialty Start Date End Date Katheryn Miles APRN PCP - General 05/30/19 [facility] [place] [phone] documented as of this encounter
--- OUTSIDE RECORDS SUMMARY | 2021-07-04 08:13 | XMS_ITS | Encounter Summary ---
:1985 Author Organization [facility] Address [address] [place] [address] Care Team Providers Name Role Phone Katheryn Miles APRN Primary Care Provider [phone] Encounter Details Date Type Department Care Team Description 10/11/2019 Orders Only [facility] Esteban Kaufman, Opiate dependence, [address] [facility] continuous (HC Code) [place] [address] [address] [facility] [phone] [place] [phone] Social History Tobacco Use Types Packs/Day Years [...] continuous documented in this encounter Care Teams Aeronautical Products Sales Engineer Relationship Specialty Start Date End Date Katheryn Miles APRN PCP - General 05/30/19 [address] [facility] [place] [phone] documented as of this encounter
--- OUTSIDE RECORDS SUMMARY | 2021-07-04 08:13 | XMS_ITS | Encounter Summary ---
:1985 Author Organization [facility] Address [address] [place] [address] Care Team Providers Name Role Phone Katheryn Miles APRN Primary Care Provider [phone] Encounter Details Date Type Department Care Team Description 12/10/2020 Scanned Document [facility] Rc Baeza MD [facility] [address] [place] [address] [address] [place] [phone] (Wo rk) Social History Tobacco Use Types [...] documented as of this encounter Care Teams Turn Down Worker Relationship Specialty Start Date End Date Katheryn Miles APRN PCP - General 05/30/19 [address] [place] [address] documented as of this encounter
--- OUTSIDE RECORDS SUMMARY | 2021-07-04 08:13 | XMS_ITS | Encounter Summary ---
:1985 Author Organization [facility] Address [address] [place] [place] [address] Care Team Providers Name Role Phone Katheryn Miles APRN Primary Care Provider [phone] Encounter Details Date Type Department Care Team Description 12/10/2020 Hospital Encounter [facility] Erin Torres ine use disorder, moderate, dependence (HC Code) (Primary Dx); MAINTENANCE [facility] Singh Substance or medication-eleuterio andrew depressive disorder (HC Code); [address] [facility] Opioid use disorder, severe, dependence (HC Code); [place] [address] PTSD (post-traumatic stress disorder) [phone] Social History Tobacco Use Types Packs/Day Years [...] 135 total) by mouth daily. mg capsule traZODone (DESYREL) 50 1-2 tabs at HS PRN 60 tablet 0 10/10 mg tablet insomnia documented as of this encounter Progress Notes Francisco Torres, CAMRYN - 12/10/2020 4:22 PM EST [facility] ??? Adult Outpatient Behavioral Health PROGRESS NOTE Client Name: [place] Date: 12/10/2020 Date of : 1985 Level of Care: Outpatient Length of Service: 30 mins Start Time: 10:45 am Stop Time: 11:15 am Type of Contact: Individual Therapy Clinician Assigned to Case: Francisco Torres LMSW Chief Complaint: I need help. I guess I have to put my tale between my legs and ask for help Presenting Problems: Client is a 33 year old, single, female living in [place], [place]. Client's chief [facility] was I just want to stay clean and not back pedal into my use. Client reports past depressive symptoms ranging from: depressed mood, lack of interest and pleasure in activities, decreased concertation, and extreme fatigue. Client Presented today to transfer to [facility] from [facility]. Client reports she stopped taking her suboxone 8-2 mg BID in September 2020 and had been using 1-3 bundles a day, route smoking. Cleint also endorses smoking crack cocaine and methadone off the street. She discussed strained relationship children in foster care as a contributing to her relapse. UTOX upon admission was + for THC, MTD, OPI, & LIZZETH. 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 She denied any urges or cravings. Previous UTOX on 08/05/2020 & 10/10/2020 positive for BUP only however client endorsed falisifying drug screens. D/t continued use of opiate and non adherence to treatment plan client is appropriate to transfer for BUP to [facility] as she will benefit from increased structure of a HLOC. FL techniques were used to discuss self care and positive reframing. Clientdiscussed relapse prevention techniques including personal boundaries and crafting. She denied any changes in mood, energy, or sleep. She denies any SI/HI/AH/VH. 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 Psycho education provided about the risks and dangers of continued substance use including overdose and . Plan: Client will meet with this specifications writer 1x weekly to continue working toward her stated goals, med management with Margaret Carlin And begin daily dosing of MMTP Family Involvement: None Problem #2: r/u Bipolar r/u PTSD Area of Focus: Depression Assessment: Client reports she discontinued psychiatric medications. She denied any SI/HI/AH/VH and is not an imminent risk to herself or others. Plan: Client will meet with this specifications writer 1x weekly for individual tele counseling [...] disorder documented in this encounter Care Teams It Service Delivery Manager Relationship Specialty Start Date End Date Katheryn Miles APRN PCP - General 05/30/19 [place] [phone] documented as of this encounter
--- OUTSIDE RECORDS SUMMARY | 2021-07-04 08:13 | XMS_ITS | Encounter Summary ---
:1985 Author Organization [facility] Address [address] [place] [phone] Care Team Providers Name Role Phone Katheryn Miles APRN Primary Care Provider [phone] Encounter Details Date Type Department Care Team Description 01/23/2020 Travel Social History Tobacco Use Types Packs/Day [...] been in contact with No / Unsure 01/23/2020 10:14 AM EDT someone who was confirmed or suspected to have Coronavirus / COVID-19? documented as of this encounter Plan of Treatment Upcoming Encounters Date Type Specialty Care Team Description 07/08/2021 Appointment Behavioral Health Francisco Torres, MS W documented as of this encounter Visit Diagnoses Not on filedocumented in this encounter Care Teams Sash Repairer Relationship Specialty Start Date End Date Katheryn Miles APRN PCP - General 05/30/19 [place] [address] documented as of this encounter
--- OUTSIDE RECORDS SUMMARY | 2021-07-04 08:13 | XMS_ITS | Encounter Summary ---
:1985 Author Organization [facility] Address [address] [place] [phone] Care Team Providers Name Role Phone Katheryn Miles APRN Primary Care Provider [phone] Encounter Details Date Type Department Care Team Description 12/05/2019 Travel Social History Tobacco Use Types Packs/Day [...] on filedocumented in this encounter Care Teams Drawer Hardware Worker Relationship Specialty Start Date End Date Katheryn Miles APRN PCP - General 05/30/19 [place] [phone] documented as of this encounter
--- OUTSIDE RECORDS SUMMARY | 2021-07-04 08:13 | XMS_ITS | Encounter Summary ---
:1985 Author Organization [facility] Address [address] [place] [id number] Care Team Providers Name Role Phone Katheryn Miles APRN Primary Care Provider [phone] Encounter Details Date Type Department Care Team Description 12/07/2019 Plan of Care Documentation Social History Tobacco [...] as of this encounter Miscellaneous Notes [facility]-Behavioral Health - Francisco Torres MSW - 12/10/2019 8:58 AM EST [facility] Outpatient Behavioral Health Interdisciplinary Treatment Plan Shakila Grove [id number] 12/07/2019 Overview: Current Diagnosis: Problem List ICD-10-CM 09/07/19 [facility] ABH OP Opioid use disorder, severe, [...] frustration in a positive manner. Target Date: 03/08/20 Status: Minimal progress Short Term Goal/Objective: Patient will return to baseline level of functioning as evidenced by??? Assessing personal risk traits and resiliency traits and discuss the role each plays in coping with daily stresses during the time between therapy sessions. Target Date: 03/08/20 Status: Minimal progress Intervention/Frequency: Provide counseling and emotional support 1x weekly therapy session - utilizing, WI, CBT, and continued attendance in pathways to recovery. Intervention/Frequency: Facilitate goal setting 1x weekly therapy session utilizing, WI, CBT, and continued attendance in pathways to recovery. ?? Substance Use / Abuse: Active Descriptive Behaviors: Polysubstance use d/o sx: daily cravings, triggers come frequently, inability to refuse the substance, poor distress tolerance- using drugs as stress relief technique Patient Stated Goal(s): I want to keep from relapsing. Digital Printer Goal(s): Re-establish sobriety, identify connection between psychiatric [...] without useof mood-altering substances . Target Date: 03/08/20 Status: Minimal progress Short Term Goal/Objective: Patient will increase awareness of triggers/cravings to substance use asevidenced by ??? keeping a personal cravings/ triggers journal- documenting each craving and scaling0-10 how severe. Target Date: 03/08/20 Status: Minimal progress Intervention/Frequency: Encourage identification/practice/mastery of adaptive coping skills 1x weekly individual therapy sessions with ASSISTANT HAIRSTYLIST- utilizing WI, CBT and continued enrollment in pathways to recovery. Intervention/Frequency: Facilitate patient identifying triggers/cravings 1x weekly individual therapy sessions - utilizing WI, CBT and continued enrollment in pathways to [...] XL 24 hr extended release tablet ??? traZODone (DESYREL) 50 mg tablet 1-2 tabs at HS PRN insomnia ??? varenicline (CHANTIX) 1 mg tablet Do not continue to smoke on this medication No current facility-administered medications for this visit. Consult / Referral Made: Primary Care Provider Discharge Planning: Anticipated Discharge Date: TBD Anticipated Discharge Level of Care/ Disposition: To be determined Plan: Client has made minimal progress during the 10/08/2019-12/09/2019 review period. [facility] to her previous clinician from the agency. She attended 6 out of 7 individual counseling sessions, currently attending weekly. She attended 2 groups in the last review period. And 6 out of 7 medication management appointments with Suresh Baeza MD. She completed a psychiatric evaluation on 10/26/2019 after missing her initial appointment on 10/16/2019. Current RX of suboxone 8/2 mg sublingual film BID, Chantix 2mg GHS, Wellbutrin XL 150mg, and trazadone 100mg. The suboxone appears effective in treating her opioid use disorder evidenced by urine drug screenings on 10/11, 10/26, 11/01, 11/08, 11/16, 11/23, 11/30, & 12/05/2019 showing positive for BUP and THC only. There have been some concerns over diversion and possible falsification of UDS, so client is goingto be placed on random mouth swab protocol to test the validity of her urine screens. Client remains guarded in individual counseling with this senior grant writer and the focus has been largely on rapport building. Client's previous BASIS score was a 1.03, at 90 day review client scored a 1.28 evidencing an increase in severity of symptoms. This can be related to psychosocial stressors. Future scores will beassessed to measure progress in treatment. Client is not an imminent risk to herself or others. MD Certification: Services in treatment plan are reasonable and necessary for the diagnosis and treatment of the itemson the problem list to improve functioning. Frequency of the services is appropriate. I certify the medical necessity of this treatment plan until the next treatment plan review. [facility] Adult Clinical Measures Row Name 12/03/19 1500 09/11/19 1500 09/07/19 1500 Clinical Measures Clinical Measure Review Type ??? Admission Measure Admission Measure Clinical Measures ??? Behavior and Symptom Identification Scale (BASIS-24) - [place]an CAGE Assessment;Mental Health Screening Form III (MHSF-III) Behavior and Symptom Identification Scale (BASIS-24) - [place] Time point of assessment 90 Day Follow-up Admission ??? Primary Mental Illness Diagnosis F43.12 F19.94 ??? Primary Substance Use Diagnosis F11.20 F11.20 ??? Clinician Last Name Brian Payne ??? 1. In past week, how much difficulty did you have - Managing your day to day life Moderate difficulty A little difficulty ??? 2. In past week, how much difficulty did you have - Coping with problems in your life A little difficulty No difficulty ??? 3. In past week, how much difficulty did you have - Concentrating A little difficulty A little difficulty ??? 4. During past week, how much of the time did you - Get along with people in your family Most of the time A little of the time ??? 5. During past week, how much of the time did you - Get along with people outside your family Mostof the time Most of the time ??? 6. During the past week, how much of the time did you - Get along well in social situations All ofthe time All of the time ??? 7. During the past week, how much of the time did you - Feel close to another person Most of the time All of the time ??? 8. During the past week, how much of the time did you - Feel like you had someone to turn to if youneeded help Most of the time Most of the time ??? 9. During the past week, how much of the time did you - Feel confident in yourself Half of the time Most of the time ??? 10. During the past week, how much of the time did you - Feel sad or depressed A little of the time A little of the time ??? 11. During the past week, how much of the time did you - Think about ending your life None of the time None of the time ??? 12. During the past week, how much of the time did you - Feel nervous A little of the time A little of the time ??? 13. During the past week, how often did you - Have thoughts racing through your head Sometimes Sometimes ??? 14. During the past week, how often did you - Think you had special mehta Never Never ??? 15. During the past week, how often did you - Hear voices or see things Never Never ??? 16. During the past week, how often did you - Think people were watching you Never Never ??? 17. During the past week, how often did you - Think people were against you Never Never ??? 18. During the past week, how often did you - Have mood swings Rarely Rarely ??? 19. During the past week, how often did you - Feel short-tempered Rarely Never ??? 20. During the past week, how often did you - Think about hurting yourself Rarely Never ??? 21. During the past week, how often - Did you have an urge to drink alcohol or take street drugs Rarely Rarely ??? 22. During the past week, how often - Did anyone talk to you about your drinking or drug use Never Never ??? 23. During the past week, how often - Did you try to hide your drinking or drug use Never Never ??? 24. During the past week, how often - Did you have problems from your drinking or drug use Never Never ??? 25. How old are you [age] ??? 26. What is your sex Female Female ??? 27. Are you . . . NOT or NOT or ??? 28. What is your racial background White/ White/ ??? 29. How much school have you completed Some college Some college ??? 30. Are you now . . . Never Never ??? 31. Outside of your treatment providers, what is your main source of social support Other family (parents, children, relatives) , or partner ??? 32. Where did you sleep in the last 30 days Apartment or house Apartment or house ??? 33. At any time in the past 30 days, did you work at a paying job Yes, more than 30 hours per week Yes, 11-30 hours per week ??? 34. At any time in the past 30 days, did you work at a volunteer job No No ??? 35. At any time in the past 30 days, were you a student in a high school, job training or college degree program No No ??? 36. Do you now receive disability benefits, for example SSI, SSDI or other disability insurance (check one or more) No No ??? Todays date 12/03/19 09/11/19 ??? OVERALL Score 1.28 1.03 ??? DEPRESSION Score 1.27 0.92 ??? RELATIONSHIPS Score 3.28 3.09 ??? SELF-HARM Score 0.58 0 ??? EMOTIONAL LABILITY Score 1.11 0.83 ??? PSYCHOSIS Score 0 0 ??? SUBSTANCE ABUSE Score 0.34 0.34 ??? CAGE C:Have you ever felt [...] to get rid of a hangover (Eye Lap Machine Tender)? Yes E:Have you ever used drugs first thing in the morning to steady your nerves or to get rid of a hangover (Eye Lap Machine Tender)? Yes Cage Assesment Score ? 8 Mental Health Screening Form III 1. Have you ever talked to a psychiatrist, psychologist, therapist, outreach and education social worker or counselor about an emotional problem? Yes 2. Have you ever felt you needed help with your emotional problems, or had people tell you that youshould get help for emotional problems ? Yes 3. Have you been advised to take medication for anxiety, depression, hearing voices or other emotional problem ? Yes 4. Have you ever been see in a psychiatric ER or hospitalized for psychiatric reasons ? Yes 5. Have you ever heard voices no one else could hear/see things others could not see ? No 6. Have you ever been depressed for weeks at a time, lost pleasure in activities, trouble concentrating, thought of killing yourself ? No 6a. Did you ever attempt to kill yoursel ? No 7. Have you ever had nightmares/flashbacks as a reult of a traumatic event ? No 8. Have you ever experienced any strong fears (heights, insects, social events, being alone) ? No 9. Have you ever given in to an impulsive/aggressive urge that has resulted in harm/destruction of property ? Yes 10. Have you ever felt people had something against you/influencing your thoughts ? No 11. Have you ever experienced emotional problems associated with sexual interests/activities/partner ? No 12. Was there ever a time in your life you spent a lot of time worrying about gaining weight/becoming fat/controlling your eating ? No 13. Every had period of time when you were so full of energyand ideas came very rapidly, needed little sleep, thought you could do almost anything ? No 14. Ever had spells/attacks when suddenly felt anxious, frightened and uneasy and started sweating/heart raced/shaking/thought you would faint ? Yes 15. Ever had persistant, lasting thought or impulse that caused considerable stress and impacted normal routines ? Yes 16. Ever lost considerable sums of money or had problems with work/relationships due to gambling ? No 17. Been told by teachers, guidance counselors or others that you have a special learning problem ? No Mental Health Screening Form (MHSF-III) Total Score ? 5 documented in this encounter Plan of Treatment Upcoming Encounters Date Type Specialty Care Team Description 07/08/2021 Appointment Behavioral Health Francisco Torres, MS W documented as of this encounter Visit Diagnoses Not on filedocumented in this encounter Care Teams Water Technician Relationship Specialty Start Date End Date Katheryn Miles APRN PCP - General 05/30/19 [facility] [place] [id number] documented as of this encounter
--- OUTSIDE RECORDS SUMMARY | 2021-07-04 08:13 | XMS_ITS | Encounter Summary ---
:[address] 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 [place] [facility] [address] [facility] [address] Methadone Maintenance Treatment Program - Intake Physical 12/10/2020 Client Name: Shakila Grove Date of : 1985 HISTORY OF PRESENT ILLNESS Client presents for [facility] ([facility]). PMH- pre- DM Heart/lung issues- none Current meds- off of psych meds Chest pain- none Dsynea on exertion- none SOB- none QTc __422_ on 2__/_ h/o IVDA- denies w/d sxs- restless, fatigue suboxone use in the past- yes Currently in [facility] Detox Unit: No Previous Treatment: [facility] Previous Detox Admissions: PAST MEDICAL, SURGICAL, SOCIAL AND FAMILY HISTORY Past Medical History: Diagnosis Date ??? Anxiety ??? Bipolar disorder (HC Code) ??? Violent behavior OB History No obstetric history on file. No past surgical history on file. Social History Socioeconomic History ??? Marital status: Single Spouse name: Not on file ??? Number of children: Not on file ??? Years of education: Not on file ??? Highest education level: Not on file Tobacco Use ??? Smoking status: Current Every Day Smoker Packs/day: 1.00 Types: Cigarettes ??? Smokeless tobacco: Current User Substance and Sexual Activity ??? Alcohol use: Yes Frequency: Monthly or less Comment: occasional ??? Drug use: Yes Types: [...] also fight frequently. Pt's father lives in [place] and is emotionally supportive. Pt's children are in [facility] custody. Family History Problem Relation Age of Onset ??? Depression Mother ??? Bipolar disorder Mother ??? Drug abuse Sister CURRENT MEDICATIONS AND ALLERGIES Current Outpatient Medications Medication Sig ??? buprenorphine-naloxone [...] No current facility-administered medications for this visit. Patient has no known allergies. ALCOHOL AND SUBSTANCE USE Withdrawal Symptoms: Yes Heroin Use: Yes Since age: Current use: Last use: Oxycodone Use: Since age: Current use: Last use: Other Opioids: Benzodiazepines: No Current use: Obtained from: Alcohol Use: No Current use: Date of Last Urine Toxicology Screening: Results: REVIEW OF SYSTEMS Review of Systems Constitutional: Negative. HENT: Negative. Eyes: Negative. Respiratory: Negative. Cardiovascular: Negative. Gastrointestinal: Negative. Endocrine: Negative. Musculoskeletal: Negative. Skin: Negative. Allergic/Immunologic: Negative. Hematological: Negative. Psychiatric/Behavioral: Negative. PHYSICAL EXAM Vital Signs Assessment: Is patient in pain? no If yes: Type: Intensity: Location: Additional comments: N/A EKG Obtained: Yes Physical Exam Constitutional: She is oriented to person, place, and time. She appears well- developed and well-nourished. HENT: Head: Normocephalic and atraumatic. Eyes: Pupils are equal, round, and reactive to light. Conjunctivae are normal. Neck: Normal range of motion. Neck supple. Cardiovascular: Normal rate and regular rhythm. Pulmonary/Chest: Effort normal and breath sounds normal. Abdominal: Soft. Bowel sounds are normal. Musculoskeletal: Normal range of motion. Neurological: She is oriented to person, place, and time. Skin: Skin is warm and dry. Psychiatric: She has a normal mood and affect. Her behavior is normal. Judgment and thought content normal. 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 See orders for medication details and specific instructions on Blood Alcohol Levels, Urine Toxicology Screens and EKG repeats. 2. Reviewed risks/side effects of methadone (specifically sedation) and interactions with other medications. 3. Labs pending. Reviewed specific labs ordered with the client. Any abnormal results will be reviewed with client. 4. Checked the [place] Prescription Monitoring Program: Patient understands that they must safeguard these medications and not share them with anyone because they can be fatal to children and adults if taken without medical supervision. Cautioned about driving or operating heavy machinery. Narcan Rx sent to pharmacy The caption writer educated client on the dangers/risks associated with continued substance use, including , overdose, withdrawal, and seizures, as well as on the risk of relapse without continued treatment. The caption writer reviewed higher level of care treatment options to address client's substance use. 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
--- OUTSIDE RECORDS SUMMARY | 2021-07-04 08:13 | XMS_ITS | Encounter Summary ---
:1985 Author Organization [facility] Address [address] [place] [address] Care Team Providers Name Role Phone Kathreyn Miles APRN Primary Care Provider [phone] Reason for Visit Reason Comments Other med refill / recovery suppor t Encounter Details Date Type Department Care Team Description 10/03/2019 Documentation [facility] Deena Loera [address] [place] [id number] Social History Tobacco Use Types Packs/Day Years [...] this encounter Progress Notes Deena Smith - 10/03/2019 3:00 PM EST [facility]-CASE MANAGEMENT Client Name: Shakila Grove Date: 10/03/2019 Date of : 1985 Type of Service: Case Management Time of Service: 3pm Length of Service: 15 mins Comments:Client came in to have advertising copywriter contact provider to get a med refill. While client was waiting we discussed client attending a group. Senior J2Ee Developer helped client find a group. Client is going to attendgroup on Tue at 1pm for anxiety and drepression. Client also discussed how her job was going. Clientreports that she's working 2 jobs and it going good. Plan: Client will continue to meet with client as needed for recovery supports Deena Smith 10/03/2019 3:57 PM documented in this encounter Plan of Treatment Upcoming Encounters Date Type Specialty Care Team Description 07/08/2021 Appointment Behavioral Health Francisco Torres, MS W documented as of this encounter Visit Diagnoses Not on filedocumented in this encounter Care Teams Molder Wax Ball Relationship Specialty Start Date End Date Katheryn Miles APRN PCP - General 05/30/19 [facility] [place] [phone] documented as of this encounter
--- OUTSIDE RECORDS SUMMARY | 2021-07-04 08:13 | XMS_ITS | Encounter Summary ---
:1985 Author Organization [facility] Address [address] [place] [address] Care Team Providers Name Role Phone Katheryn Miles APRN Primary Care Provider [phone] Encounter Details Date Type Department Care Team Description 12/31/2020 Hospital Encounter ANSCIARA METHADONE Erin Torres ine use disorder, moderate, dependence (HC Code) (Primary Dx); MAINTENANCE CAMRYN Singh Substance or medication-eleuterio andrew depressive disorder (HC Code); [address] [facility] Opioid use disorder, severe, dependence (HC Code); [place] [address] PTSD (post-traumatic stress disorder) [phone] Social History Tobacco Use Types Packs/Day Years [...] of this encounter Progress Notes Francisco Torres, SHRIMP PEELING MACHINE TENDER - 12/31/2020 1:21 PM EST [facility] ??? Adult Outpatient Behavioral Health PROGRESS NOTE Client Name: Shakila Grove Date: 12/31/2020 Date of : 1985 Level of Care: Outpatient Length of Service: 30 mins Start Time: 10:45 am Stop Time: 11:15 am Type of Contact: Individual Therapy Clinician Assigned to Case: Francisco Torres LMSW Chief Complaint: My dose is way too high. I've been sleeping all day Presenting Problems: Client is a 33 year old, single, female living in [place], [place]. Client's chief complaint when[facility] to [facility] was I just want to stay clean and not back pedal into my use. Client reports past depressive symptoms ranging from: depressed mood, lack of interest and pleasure in activities, decreased concertation, and extreme fatigue. Client and entry writer met in person today. She had been absent since 12/28/2020 and was unable to be reached by phone. She was maintained on 60 mg MTD QD, however reported it felt too sedating and that she wished to decrease. Case was reviewed with interdisciplinary team. Client was dosed with 55 mg today.Can decrease 5 mg every 3 days to a minimum dose of 40 mg. UTOX upon admission and on 12/26/2020 was+ for THC, MTD, OPI, & LIZZETH. Bolter Helper utilized HI techniques to explore thoughts and feelings and illicit motivation for change. Client was agreeable to referral to [facility]. Will facilitate referral to [facility] virtual groups for additional supports. HI techniques were used to discuss relapse prevention techniques including personal boundaries and crafting. She reports sleeping all day, low mood, no energy. She discontinued all psych meds in October 2020 and is ambivalent about rescheduling future appointments. She denies any SI/HI/AH/VH. 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 Psycho education provided about the risks and dangers of continued substance use including overdose and . Plan: Will benefit from daily MTD dosing, 2-4 X a month individual counseling utilizing HI and CBT techniques, continued assessment to determine the appropriateness of medication management, and coordinationof care with primary care as needed. Family Involvement: None Problem #2: r/u Bipolar r/u PTSD Area of Focus: Depression Assessment: Client reports she discontinued psychiatric medications. She denied any SI/HI/AH/VH and is not an imminent risk to herself or others. Plan: Client will meet with this entry writer 1x weekly for individual tele counseling [...] disorder documented in this encounter Care Teams Industrial Relations Analyst Relationship Specialty Start Date End Date Katheryn Miles APRN PCP - General 05/30/19 [place] [address] documented as of this encounter
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
--- OUTSIDE RECORDS SUMMARY | 2021-07-04 08:13 | XMS_ITS | Encounter Summary ---
:1985 Author Organization [facility] Address [address] [place] [address] Care Team Providers Name Role Phone Katheryn Miles APRN Primary Care Provider [phone] Encounter Details Date Type Department Care Team Description 12/10/2020 Scanned Document [facility] Yobanimelvinshad Emerson[facility] [address] [place], [place] [id number] Social History Tobacco Use Types Packs/Day Years [...] documented as of this encounter Care Teams Spray Ii Painter Relationship Specialty Start Date End Date Katheryn Miles APRN PCP - General 05/30/19 [address] [place] [address] documented as of this encounter
--- OUTSIDE RECORDS SUMMARY | 2021-07-04 08:13 | XMS_ITS | Encounter Summary ---
:1985 Author Organization [facility] Address [address] [place] [address] Care Team Providers Name Role Phone Katheryn Miles APRN Primary Care Provider [phone] Encounter Details Date Type Department Care Team Description 01/31/2020 Travel Social History Tobacco Use Types Packs/Day [...] been in contact with No / Unsure 01/31/2020 8:09 AM EDT someone who was confirmed or suspected to have Coronavirus / COVID-19? documented as of this encounter Plan of Treatment Upcoming Encounters Date Type Specialty Care Team Description 07/08/2021 Appointment Behavioral Health Francisco Torres, MS W documented as of this encounter Visit Diagnoses Not on filedocumented in this encounter Care Teams Market Researcher Relationship Specialty Start Date End Date Katheryn Miles APRN PCP - General 05/30/19 [place] [address] documented as of this encounter
--- OUTSIDE RECORDS SUMMARY | 2021-07-04 08:13 | XMS_ITS | Encounter Summary ---
:1985 Author Organization [facility] Address [address] [place] [address] Care Team Providers Name Role Phone Katheryn Miles APRN Primary Care Provider [phone] Encounter Details Date Type Department Care Team Description 02/14/2020 Travel Social History Tobacco Use Types Packs/Day [...] been in contact with No / Unsure 02/14/2020 7:59 AM EDT someone who was confirmed or suspected to have Coronavirus / COVID-19? documented as of this encounter Plan of Treatment Upcoming Encounters Date Type Specialty Care Team Description 07/08/2021 Appointment Behavioral Health Francisco Torres, MS W documented as of this encounter Visit Diagnoses Not on filedocumented in this encounter Care Teams Steel Post Installer Relationship Specialty Start Date End Date Katheryn Miles APRN PCP - General 05/30/19 [place] [address] documented as of this encounter
--- OUTSIDE RECORDS SUMMARY | 2021-07-04 08:13 | XMS_ITS | Encounter Summary ---
:1985 Author Organization [facility] Address [address] [place] [address] Care Team Providers Name Role Phone Katheryn Miles APRN Primary Care Provider [phone] Reason for Visit Reason Comments Foot Pain Pt. stated that she stepped on a nail in her right foot. Encounter Details Date Type Department Care Team Description 11/23/2019 Follow-Up [facility] Esteban Kaufman, Puncture wound of right foot , initial encounter (Primary Dx); [address] [facility] Right foot pain- s/p impailed foot on na il. ; [place] [address] [address] [facility] Vaccine for pcamfzisyx-aucqpib-xwfqfcllb , combined [phone] [place] [address] (Wo rk) Social History Tobacco Use Types [...] Sign Reading Time Taken Comments Blood Pressure 130/84 11/23/2019 1:22 PM EST Pulse 91 11/23/2019 1:22 PM EST Temperature 36.5 ??C (97.7 ??F) 11/23/2019 1:22 PM EST Respiratory Rate 20 11/23/2019 1:22 PM EST Oxygen Saturation 96% 11/23/2019 1:22 PM EST Inhaled Oxygen Concentration - - Weight 93.9 kg (207 lb) 11/23/2019 1:22 PM EST Height 160 cm (5' 3) 11/23/2019 1:22 PM EST Body Mass Index 36.67 11/23/2019 1:22 PM EST documented in this encounter Progress Notes Esteban Desai APRN - 11/23/2019 3:00 PM EST Return Visit Note Health Literacy score: No flowsheet data found. Preferred language is Monegasque Chief Concern(s): Chief Complaint Patient presents with ??? Foot Pain Pt. stated that she stepped on a nail in her right foot. HPI: Shakila Grove is a 34 y.o. female who impailed her right foot on a nail. Unsure how far nail went in but it did not penetrate throught to the dorsal surface of the foot. Reports painful. Patient's medications, allergies, problem list, past medical, surgical, social and family histories were reviewed and updated as appropriate ROS: Review of Systems Musculoskeletal: Positive for joint swelling (right distal forefoot. ). Skin: Positive for wound (puncture wound right distal planter foot). Exam Vitals: BP 130/84 (Site: r a, Position: Sitting, Cuff Size: Large) Pulse (!) 91 Temp 97.7 ??F (36.5 ??C) (Oral) Resp 20 Ht 5' 3 (1.6 m) Wt 93.9 kg SpO2 96% BMI 36.67 kg/m?? (207 lbs.) Pain Score: 2 BMI (Calculated): 36.7 Physical Exam Skin: Findings: Wound (very small puncture wound - right foot- tibial sesimoid area. slightly tender inthe area. ) present. Recent Labs Lab Results Component Value Date CHOL 180 03/08/2017 LDL 117 (H) 03/08/2017 TRIG 95 03/08/2017 HDL 44 03/08/2017 No flowsheet data found. The ASCVD Risk score (Sharda BEEBE Jr., et al., 2013) failed to calculate for the following reasons: The 2013 ASCVD risk score is only valid for ages 40 to 79 Quality Screening [facility] Follow-up List [facility] Lifestyle Behavior Changes BMI: Abnormal BMI Follow-Up Plan 11/23/2019 BMI (Calculated) 36.7 Some recent data might be hidden SBIRT Score: No flowsheet data found. HITS Total Score: No flowsheet data found. Family Planning: No flowsheet data found. Depression Screen Total: No flowsheet data found. Assessment & Plan Shakila Grove is a 34 y.o. female Other Orders ICD-10-CM 1. Puncture wound of right foot, initial encounter S91.331A Keflex x 10 days 2. Right foot pain- s/p impailed foot on nail. M79.671 nsaids prn 3. Vaccine for qfacrlixao-qchbrpr-idjfidfoo, combined Z23 Tdap (ADACEL / BOOSTRIX) IM (07748) Follow-Up Return in about 1 week (around 11/30/2019), or if symptoms worsen or fail to improve. Health Maintenance Health Maintenance Topic Date Due ??? HIV screening 2002 ??? Pneumo Vaccine 19-64 Medium Risk (1 of 1 - PPSV23) 2006 ??? Cervical cancer screening (Pap Smear) 2008 ??? Influenza vaccine 05/31/2019 ??? Tetanus adult (Td q 10,TDAP once) 11/23/2029 Electronically Signed by Esteban Desai APRN, November 23, 2019 documented in this encounter Plan of Treatment Upcoming Encounters Date Type Specialty Care Team Description 07/08/2021 Appointment Behavioral Health Francisco Torres, MS W documented as of this encounter Visit Diagnoses Diagnosis Puncture wound of right foot, initial en counter - Primary Right foot pain- s/p impailed foot on na il. Pain in limb Vaccine for yowhwhlwyv-sswkhpn-dlukwzohp , combined Need for prophylactic vaccination with c ombined ijrvemcstn-becmnpx-zzvsyvawj (DTP) vaccine documented in this encounter Care Teams Air Hole Driller Relationship Specialty Start Date End Date Katheryn Miles APRN PCP - General 05/30/19 [facility] [place], [place] [id number] documented as of this encounter
--- OUTSIDE RECORDS SUMMARY | 2021-07-04 08:13 | XMS_ITS | Encounter Summary ---
:1985 Author Organization [facility] Address [address] [place] [address] Care Team Providers Name Role Phone Katheryn Miles APRN Primary Care Provider [phone] Encounter Details Date Type Department Care Team Description 01/29/2020 Travel Social History Tobacco Use Types Packs/Day [...] been in contact with No / Unsure 01/29/2020 8:00 AM EDT someone who was confirmed or suspected to have Coronavirus / COVID-19? documented as of this encounter Plan of Treatment Upcoming Encounters Date Type Specialty Care Team Description 07/08/2021 Appointment Behavioral Health Francisco Torres, MS W documented as of this encounter Visit Diagnoses Not on filedocumented in this encounter Care Teams Senior Insight Manager Relationship Specialty Start Date End Date Katheryn Miles APRN PCP - General 05/30/19 [place] [address] documented as of this encounter
--- OUTSIDE RECORDS SUMMARY | 2021-07-04 08:13 | XMS_ITS | Encounter Summary ---
:1985 Author Organization [facility] Address [address] [place] [address] Care Team Providers Name Role Phone Katheryn Miles APRN Primary Care Provider [phone] Encounter Details Date Type Department Care Team Description 02/26/2020 Travel Social History Tobacco Use Types Packs/Day [...] on filedocumented in this encounter Care Teams Psychiatric Clinician Relationship Specialty Start Date End Date Katheryn Miles APRN PCP - General 05/30/19 [place] [address] documented as of this encounter
--- OUTSIDE RECORDS SUMMARY | 2021-07-04 08:13 | XMS_ITS | Encounter Summary ---
:1985 Author Organization [facility] Address [address] [place] [address] Care Team Providers Name Role Phone Katheryn Miles SUPERVISOR [employer] Primary Care Provider [phone] Encounter Details Date Type Department Care Team Description 12/10/2020 Scanned Document [facility] Anabella Chatterjee, [facility] [address] [address] [place] [id number] [phone] (Wo rk) Social History Tobacco Use Types [...] documented as of this encounter Care Teams Seater Grinder Relationship Specialty Start Date End Date Katheryn Miles APRN PCP - General 05/30/19 [address] [place] [id number] documented as of this encounter
--- OUTSIDE RECORDS SUMMARY | 2021-07-04 08:13 | XMS_ITS | Encounter Summary ---
:1985 Author Organization [facility] Address [address] [place] [address] Care Team Providers Name Role Phone Katheryn Miles APRN Primary Care Provider [phone] Encounter Details Date Type Department Care Team Description 12/10/2020 Orders Only [facility] Mike, Opioid typ e MAINTENANCE LEODAN Romano dependence, continuous [address] (HC Code) (Primary Dx) [place] [address] [place], [place] [phone] [id number] Social History Tobacco Use Types Packs/Day Years [...] Appointment Behavioral Health Francisco Torres MS W Scheduled Orders Name Type Priority Associated Diagnoses Order S chedule TB Skin Test Point of Care Routine Opioid type dependence, Ord ered: 12/10/2020 Testing continuous (HC Code) documented as of this encounter Procedures Procedure Name Priority Date/Time Associated Comments Diagnosis POCT URINE TOXICOLOGY Routine 12/10/2020 10:57 Opioid type Re sults for this ([facility]) AM EST dependence, procedure are i n continuous (HC the results Code) section. POCT URINE Routine 12/10/2020 10:56 Opioid type Res ults for this AM EST dependence, procedure are i n continuous (HC the results Code) section. EKG Routine 12/10/2020 10:53 Opioid type Results for this AM EST dependence, procedure are i n continuous (HC the results Code) section. HIV 1/2 AG/AB, Routine 12/10/2020 10:42 Opioid type Results f or this W/REFLEXES (Q) AM EST dependence, procedure are in continuous (HC the results Code) section. HEPATITIS PANEL, ACUTE Routine 12/10/2020 10:42 Opioid type R esults for this W/REFLEX (Q) AM EST dependence, procedure a re in continuous (HC the results Code) section. C. TRACHOMATIS/N. Routine 12/10/2020 10:42 Opioid type Result s for this GONORRHOEAE RNA BY TMA AM EST dependence, proce dure are in (Q) continuous (HC the results Code) section. HEPATITIS A AB, TOTAL Routine 12/10/2020 10:42 Opioid type Re sults for this W/REFL IGM (LMW Q) AM EST dependence, proce dure are in continuous (HC the results Code) section. HEPATITIS B SURFACE Routine 12/10/2020 10:42 Opioid type Resu lts for this ANTIBODY, QUANT (L AM EST dependence, proce dure are in Q) continuous (HC the results Code) section. RPR (MONITOR THERAPY) Routine 12/10/2020 10:42 Opioid type Re sults for this W/REFL TITER (BH AM EST dependence, procedu re are in GH LMW Q YH) continuous (HC the results Code) section. URINALYSIS WITH Routine 12/10/2020 10:42 Opioid type Results for this MICROSCOPIC (GH L AM EST dependence, proced ure are in LMW Q) continuous (HC the results Code) section. CBC AND DIFFERENTIAL Routine 12/10/2020 10:42 Opioid type Res ults for this AM EST dependence, procedure are i n continuous (HC the results Code) section. TSH Routine 12/10/2020 10:42 Opioid type Results for this AM EST dependence, procedure are i n continuous (HC the results Code) section. COMPREHENSIVE Routine 12/10/2020 10:42 Opioid type Results fo r this METABOLIC PANEL AM EST dependence, procedure ar e in continuous (HC the results Code) section. documented in this encounter Results POCT Urine Toxicology ([facility]) (12/10/2020 10:57 AM EST) POC THC/Cannabinoids Positive (A) Negative [facility] Screen Urine [facility] POC Cocaine Positive (A) [facility] Urine POC Amphetamines Screen Negative Negative [facility] Urine [facility] POC Opiates Screen Urine Positive (A) Negative [facility] Methamphetamine/ Negative Negative [facility] Amphetamine Screen, Ur [facility] POC Barbiturates Screen Negative Negative [facility] Urine [facility] POC Benzodiazapam Screen Negative Negative [facility] Urine [facility] POC Ecstasy (MDMA) Negative Negative [facility] POC Methadone Screen Positive (A) Negative [facility] Urine [facility] POC Ooxycodone Screen Negative Negative [facility] Urine [facility] POC Phencyclidine(PCP) Negative Negative [facility] POC Buprenorphine Screen Negative Negative [facility] Urine [facility] POC Tri-cyclic Negative Negative [facility] Antidepressant (TCA) [facility] Screen Urine Expiration Date 09/02/2021 [facility] Lot Number [id number] [facility] Specimen Urine Performing Organization Address [facility] Phon e Number [facility] [place], [place], [facility] POCT urine (12/10/2020 10:56 AM EST) Pathologist Sig nature Preg Test, Ur, POC Negative Negative [facility] Line in Control Yes [facility] Window? (+ Control) [facility] Background Clear? (- Yes [facility] Control) [facility] Kit Lot [id number] [facility] Expiration Date 01/28/2021 [facility] Specimen Urine - Urine specimen (specimen) Performing Organization Address [facility]/State/ZIP [facility] Phon e Number [facility] [place], [place], [facility] EKG (12/10/2020 10:53 AM EST) Pathologist Sig nature ECG - HEART RATE 82 bpm [facility] EKG ECG - QRS Interval 98 ms [facility] EKG ECG - QT Interval 383 ms [facility] EKG ECG - QTC Interval 450 ms [facility] EKG ECG - P Dunbar 53 deg [facility] EKG ECG - QRS Dunbar 45 deg [facility] EKG ECG - T Wave Dunbar 39 deg [facility] EKG ECG -- P-R Interval 161 msec [facility] EKG ECG - SEVERITY Normal severity [facility] ECGComment: HEALTH EKG :SINUS RHYTHM Specimen Narrative This result has an attachment that is no t available. Performing Organization Address [facility] Phon e Number [facility] EKG Hepatitis B surface antibody, quant (L Q) (12/10/2020 10:42 AM EST) Hepatitis B 29 > OR = 10 [facility] Surface Antibody, Comment: mIU/mL Quant PATIENT HAS IMMUNITY TO HEPATITIS B VIRUS. For additional information, please refer to http://servtag.[employer]/faq/YXD394 (This link is being provided for informational/ educational purposes only). Specimen Blood Resulting Agency Comment Performing Lab: ?Site ID: [id number] ?Name: [facility] ?Address: [address] [place] [address], [place] [address] ?Director: Master Vargas Performing Organization Address City/State/ZIP Code Phon e Number [facility] [address] [place] [address] Hepatitis A Ab, total w/refl IgM (LMW Q) (12/10/2020 10:42 AM EST) Hepatitis A Ab, NON-REACTIVE NON-REACTIVE [facility] Total W/Refl IgM Comment: For additional information, please refer to http://[email or web address]/faq/QBN102 (This link is being provided for informational/ educational purposes only.) Specimen Blood Resulting Agency Comment Performing Lab: ?Site ID: [id number] ?Name: Mister Spex ?Address: [address] [place] [phone] ?Director: Master Vargas Performing Organization Address [facility] Phon e Number [facility] [address] [place] [address] C. trachomatis/N. gonorrhoeae RNA by TMA, (LMW Q) (12/10/2020 10:42 AM EST) C. trachomatis NOT DETECTED NOT DETECTED [facility] RNA, TMA Neisseria NOT DETECTED NOT DETECTED [facility] gonorrhoeae RNA, TMA Comment [facility] Comment: The analytical performance characteristics of this assay, when used to test SurePath(TM) specimens have b een determined by [employer]. The modifications hav e not been cleared or approved by the FDA. This assay castro s been validated pursuant to the CLIA regulations and is used for clinical purposes. For additional information, please refer to https://servtag.[employer]/faq/GRO597 (This link is being provided for information/ educational purposes only.) Specimen Culture - Urine specimen (specimen) Resulting Agency Comment Performing Lab: ?Site ID: [id number] ?Name: Mister Spe[facility] ?Address: [address] [place] [phone] ?Director: Master Vargas Performing Organization Address [facility] Phon e Number [facility] [address] [place] [phone] Hepatitis panel, acute w/reflex (Q) (12/10/2020 10:42 AM EST) Hep A IgM NON-REACTIVE NON-REACTIVE [facility] Comment: For additional information, please refer to http://servtag.[email or web address]/faq/LFD374 (This link is being provided for informational/ educational purposes only.) Hepatitis B Surface NON-REACTIVE NON-REACTIVE [facility] Ag Confirmation CANCELEDComment: [facility] Result canceled by the ancillary. Hepatitis B Core Ab NON-REACTIVE NON-REACTIVE [facility] IgM Hepatitis C Ab NON-REACTIVE NON-REACTIVE [facility] Signal To Cut-Off 0.01 <1.00 [facility] Comment: HCV antibody was non-reactive. There is no laboratory evidence of HCV infection. In most cases, no further action is required. However, if recent HCV exposure is suspected, a test for HCV RN A (test code 79043) is suggested. For additional information please refer to http://servtag.[employer]/faq/AED89p6 (This link is being provided for informational/ educational purposes only.) Specimen Blood Resulting Agency Comment Performing Lab: ?Site ID: [id number] ?Name: [facility] ?Address: [address] [place] [address], [place] [address] ?Director: Master Vargas Performing Organization Address City/[facility] Code Phon e Number [facility] [address] [place] [phone] HIV 1/2 ag/ab, w/reflexes (Q) (12/10/2020 10:42 AM EST) HIV Ag/Ab, 4th NON-REACTIVE NON-REACTIVE [...] ?? For additional information please refer to http://[email or web address]/faq/ZPK145 (This link is being provided for informational/ educational purposes only.) The performance of this assay has not been clinically validated in patients less than 2 years old. Specimen Blood Resulting Agency Comment Performing Lab: ?Site ID: [id number] ?Name: Mister Spex ?Address: [address] [place] [address], [place] [address] ?Director: Master Vargas Performing Organization Address City/State/ZIP Code Phon e Number [facility] [address] [place] [address] RPR (monitor therapy) w/refl titer (BH GH LMW Q YH) (12/10/2020 10:42 AM EST) Pathologist Sig nature Rpr (Monitor) W/Refl NON-REACTIVE NON-REACTIVE [facility] Titer Specimen Blood Resulting Agency Comment Performing Lab: ?Site ID: [id number] ?Name: [facility] ?Address: [address] [place] [address], [place] [address] ?Director: Master Vargas Performing Organization Address City/State/ZIP Code Phon e Number [facility] [address] [place] [address] Urinalysis with microscopic (GH L LMW Q) (12/10/2020 10:42 AM EST) Color, UA YELLOW YELLOW [facility] Appearance CLOUDY (A) CLEAR [facility] Specific [place], UA 1.017 1.001 - 1.035 [facility] pH 5.5 5.0 - 8.0 [facility] Glucose, UA NEGATIVE NEGATIVE [facility] Bilirubin NEGATIVE NEGATIVE [facility] Ketones, UA NEGATIVE NEGATIVE [facility] Occult Blood NEGATIVE NEGATIVE [facility] Protein, UA NEGATIVE NEGATIVE [facility] Nitrite, UA NEGATIVE NEGATIVE [facility] Leukocyte Esterase, 1+ (A) NEGATIVE [facility] UA WBC 6-10 (A) < OR = 5 /HPF [facility] RBC NONE SEEN < OR = 2 /HPF [facility] Epithelial Cells, 10-20 (A) < OR = 5 /HPF [facility] Squamous Epithelial Cells, CANCELEDComment < OR = 5 /HPF [facility] Transitional : Result canceled by the ancillary. Epithelial Cells, CANCELEDComment < OR = 3 /HPF [facility] Renal : Result canceled by the ancillary. Bacteria FEW (A) NONE SEEN /HPF [facility] Calcium Oxalate CANCELEDComment NONE OR FEW [facility] Crystals, Urine : Result /HPF canceled by the ancillary. Crystals, Triple CANCELEDComment NONE OR FEW [facility] Phosphate, Urine : Result /HPF canceled by the ancillary. Uric Acid Crystals, CANCELEDComment NONE OR FEW [facility] Urine : Result /HPF canceled by the ancillary. Amorphous Sediment CANCELEDComment NONE OR FEW [facility] : Result /HPF canceled by the ancillary. Crystals, Urine CANCELEDComment NONE SEEN /HPF [facility] : [...] Result canceled by the ancillary. Specimen Urine Resulting Agency Comment Performing Lab: ?Site ID: [id number] ?Name: Mister Spex ?Address: [address] [place] [phone] ?Director: Master Vargas Performing Organization Address City/State/ZIP Code Phon e Number [facility] [address] [place] [address] (12/10/2020 10:42 AM EST) [facility], 3rd Generation 3.02 mIU/L [facility] Comment: ?Reference Range ?> or = 20 Years ??0.40-4.50 ? Ranges ?First trimester ?0.26-2.66 ?Second trimester ?? 0.55-2.73 ?Third trimester ?0.43-2.91 Specimen Blood Resulting Agency Comment Performing Lab: ?Site ID: [id number] ?Name: Mister Spex ?Address: [address] [place] [phone] ?Director: Master Vargas Performing Organization Address City/State/ZIP Code Phon e Number [facility] [address] [place] [address] CBC and differential (12/10/2020 10:42 AM EST) WBC 14.6 (H) 3.8 - 10.8 [facility] Thousand/uL RBC 4.85 3.80 - 5.10 [facility] Million/uL Hemoglobin 14.7 11.7 - 15.5 [facility] g/dL Hematocrit 42.2 35.0 - 45.0 [facility] % MCV 87.0 80.0 - 100.0 [facility] fL MCH 30.3 27.0 - 33.0 [facility] pg MCHC 34.8 32.0 - 36.0 [facility] g/dL RDW 12.7 11.0 - 15.0 [facility] % Platelets 255 140 - 400 [facility] Thousand/uL MPV 9.7 7.5 - 12.5 [facility] fL Neutrophils Absolute 11,154 (H) 1,500 - [facility] 7,800 cells/uL Neutrophils Absolute CANCELEDComment: 0 - 750 [facility] Result canceled cells/uL by the ancillary. Metamyelocytes CANCELEDComment: 0 cells/uL [facility] Absolute Result canceled by the ancillary. Myelocytes, Absolute CANCELEDComment: 0 cells/uL [facility] Result canceled by the ancillary. Promyelocytes Absolute CANCELEDComment: 0 cells/uL [facility] RY Result canceled by the ancillary. Lymphocytes Absolute 2,497 850 - 3,900 [facility] cells/uL Monocytes Absolute 905 200 - 950 [facility] cells/uL Eosinophils Absolute 15 15 - 500 [facility] cells/uL Basophils Absolute 29 0 - 200 [facility] cells/uL Blasts Absolute CANCELEDComment: 0 cells/uL [facility] Result canceled by the ancillary. RBC, Absolute CANCELEDComment: 0 cells/uL [facility] Nucleated Result canceled by the ancillary. Neutrophils 76.4 % [facility] Neutrophils, Band CANCELEDComment: % [facility] Result canceled by the ancillary. Metamyelocytes CANCELEDComment: % [facility] Result canceled by the ancillary. Myelocytes CANCELEDComment: % [facility] Result canceled by the ancillary. Promyelocytes CANCELEDComment: % [facility] Result canceled by the ancillary. Lymphocytes 17.1 % [facility] Lymphocytes, Reactive CANCELEDComment: 0 - 10 % [facility] Y Result canceled by the ancillary. Monocytes 6.2 % [facility] Eosinophils 0.1 % [facility] Basophils 0.2 % [facility] Blasts CANCELEDComment: % [facility] Result canceled by the ancillary. nRBC CANCELEDComment: 0 /100 WBC [facility] Result canceled by the ancillary. Comments CANCELEDComment: [facility] Result canceled by the ancillary. Specimen Blood Resulting Agency Comment Performing Lab: ?Site ID: [id number] ?Name: [facility] ?Address: [address] [place] [address], [place] [address] ?Director: Master Vargas Performing Organization Address City/State/ZIP Code Phon e Number [facility] [address] [place] [address] Comprehensive metabolic panel (12/10/2020 10:42 AM EST) [facility] Glucose 124 (H) 65.00 - [facility] Comment: 99.00 mg/dL ? Fasting reference interval For someone without known diabetes, a glucose value between 100 and 125 mg/dL is consistent with prediabetes and should be confirmed with a follow-up test. BUN 15 7.0 - 25.0 [facility] mg/dL Creatinine 0.84 0.50 - 1.10 [facility] mg/dL eGFR (NON 91 > OR = 60 [facility] -[place]) mL/min/1.73m 2 eGFR (Afr Amer) 106 > OR = 60 [facility] mL/min/1.73m 2 BUN/Creatinine NOT APPLICABLE 6 - 22 [facility] Ratio (calc) Sodium 138 135 - 146 [facility] mmol/L Potassium 3.2 (L) 3.5 - 5.3 [facility] mmol/L Chloride 103 98 - 110 [facility] mmol/L CO2 24 20 - 32 [facility] mmol/L Calcium 9.0 8.6 - 10.2 [facility] mg/dL Protein, Total 7.4 6.1 - 8.1 [facility] g/dL Albumin 4.7 3.6 - 5.1 [facility] g/dL Globulin 2.7 1.9 - 3.7 [facility] g/dL (calc) Albumin/Globulin 1.7 1.0 - 2.5 [facility] Ratio (calc) Bilirubin, Total 0.3 0.2 - 1.2 [facility] mg/dL Alkaline 66 31 - 125 U/L [facility] Phosphatase AST 12 10 - 30 U/L [facility] ALT 17 6 - 29 U/L [facility] Specimen Blood Resulting Agency Comment Performing Lab: ?Site ID: [id number] ?Name: [facility] ?Address: [address] [place] [address], [place] [address] ?Director: Master Vargas Performing Organization Address City/State/ZIP Code Phon e Number [facility] [address] [place] [phone] documented in this encounter Visit Diagnoses Diagnosis Opioid type dependence, continuous (HC C ode) - Primary Opioid type dependence, continuous documented in this encounter Care Teams Home Health Rn Relationship Specialty Start Date End Date Katheryn Miles APRN PCP - General 05/30/19 [place] [address] documented as of this encounter
--- OUTSIDE RECORDS SUMMARY | 2021-07-04 08:13 | XMS_ITS | Encounter Summary ---
:1985 Author Organization [facility] Address [address] [place] [address] Care Team Providers Name Role Phone Katheryn Miles APRN Primary Care Provider [phone] Encounter Details Date Type Department Care Team Description 09/26/2019 Orders Only [facility] Nilo Robb MD Opioid use disorder, severe, dependence (HC Code) (Primary Dx); [address] Opiate dependence, continuous (HC Code) [place] [address] [place], [place] [phone] (Wo rk) Social History Tobacco Use Types [...] Opioid use disorder, severe, dependence (HC Code) - Primary Opiate dependence, continuous (HC Code) Opioid type dependence, continuous documented in this encounter Care Teams Studio Assistant Relationship Specialty Start Date End Date Katheryn Miles APRN PCP - General 05/30/19 [address] [place] [address] documented as of this encounter
--- OUTSIDE RECORDS SUMMARY | 2021-07-04 08:13 | XMS_ITS | Encounter Summary ---
:1985 Author Organization [facility] Address [address] [place] [address] Care Team Providers Name Role Phone Katheryn Miles APRN Primary Care Provider [phone] Encounter Details Date Type Department Care Team Description 12/03/2019 Scanned Document [facility] REJI Torres MSW [address] [place], [place] [phone] Social History Tobacco Use Types Packs/Day Years [...] documented as of this encounter Care Teams Inside Sales Trainer Relationship Specialty Start Date End Date Katheryn Miles APRN PCP - General 05/30/19 [address] [place] [address] documented as of this encounter
--- OUTSIDE RECORDS SUMMARY | 2021-07-04 08:13 | XMS_ITS | Encounter Summary ---
:1985 Author Organization [facility] Address [address] [place] [address] Care Team Providers Name Role Phone Katheryn Miles APRN Primary Care Provider [phone] Reason for Visit Reason Comments Other SPARS Update/ RC Check-In Encounter Details Date Type Department Care Team Description 02/04/2020 Documentation [facility] SHIVA Smith, Cocaine use disorder, modera te, dependence (HC Code); [address] [facility] Substance or medication-eleuterio andrew depressive disorder (HC Code); [place] [address] PTSD (post-traumatic stress disorder); [phone] Opioid use diso rder, severe, dependence (HC Code) Social History Tobacco Use Types Packs/Day Years [...] / COVID-19? documented as of this encounter Progress Notes Deena Smith - 02/04/2020 3:00 PM EDT [facility] ??? Adult Outpatient Behavioral Health CASE MANAGEMENT Client Name: Shakila Grove Date: 02/04/2020 Date of : 1985 Type of Service: SPARS Update/RC Check-In Time of Service: 3:03pm Length of Service: 15 mins Referral for Services: Previous Referrals: Contact: Previous Contact: Comments: Preparation Department Supervisor reached out to client to conduct SPARS update/Check-In. Client and board writer discussed how client is doing with the stress of the COVID19 pandemic. Client reports that she's still working due to changing her position at [employer]. 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 Due to her place of work being open, she is only one of 3 people that do that job which helps secure her job at this time. Client denies cravings or relapse at this time. Preparation Department Supervisor reminded client that if she should need recovery supports that she can reach out to board writer. Deena Smith 02/04/2020 4:37 PM documented in this encounter Plan of [...] Code) documented in this encounter Care Teams Developer Architect Relationship Specialty Start Date End Date Katheryn Miles APRN PCP - General 05/30/19 [facility] [place] [address] documented as of this encounter
--- OUTSIDE RECORDS SUMMARY | 2021-07-04 08:13 | XMS_ITS | Encounter Summary ---
:1985 Author Organization [facility] Address [address] [place] [address] Care Team Providers Name Role Phone Katheryn Miles APRN Primary Care Provider [phone] Encounter Details Date Type Department Care Team Description 01/08/2020 Travel Social History Tobacco Use Types Packs/Day [...] on filedocumented in this encounter Care Teams Copy Supervisor Relationship Specialty Start Date End Date Katheryn Miles APRN PCP - General 05/30/19 [place] [address] documented as of this encounter
--- OUTSIDE RECORDS SUMMARY | 2021-07-04 08:13 | XMS_ITS | Encounter Summary ---
:1985 Author Organization [facility] Address [address] [place] [address] Care Team Providers Name Role Phone Katheryn Miles APRN Primary Care Provider [phone] Reason for Visit Reason Comments Advice Only Encounter Details Date Type Department Care Team Description 12/12/2019 Refill [facility] Katheryn Turk APRN Advice Only [address] [place] [address] [place] [phone] (Wo rk) Social History Tobacco Use Types [...] Telephone Encounter - Martha Woods RN - 12/12/2019 1:45 PM EST Spoke to pt about results. Will work on healthy lifestyle. documented in this encounter Plan of Treatment Upcoming Encounters Date Type Specialty Care Team Description 07/08/2021 Appointment Behavioral Health Francisco Torres, W documented as of this encounter Visit Diagnoses Not on filedocumented in this encounter Care Teams Pre School Teacher Relationship Specialty Start Date End Date Katheryn Miles APRN PCP - General 05/30/[address] [place], [place] [address] [address] documented as of this encounter
--- OUTSIDE RECORDS SUMMARY | 2021-07-04 08:14 | XMS_ITS | Encounter Summary ---
:1985 Author Organization [facility] Address [address] [place] [address] Care Team Providers Name Role Phone Unavailable Primary Care Provider Unavailable Encounter Details Date Type Department Care Team Description 04/21/2016 Hospital Encounter [place] [facility] Oliver Burgess MD [address] [address] [place], [place] [phone] (Wo rk) Social History Tobacco Use Types Packs/Day Years Used Date Never Assessed Alcohol Habits Answer Date Recorded How often [...] Sig Dispensed Refills Start Date End Date albuterol sulfate (PROAIR PROAIR HFA 108 (90 0 11/29/2019 HFA) 90 mcg/actuation HFA Base) MCG/ACT AERS aerosol inhaler ARIPiprazole (ABILIFY) 10 ABILIFY 10 MG TABS 0 11/29/2019 mg tablet busPIRone (BUSPAR) 10 mg BUSPIRONE HCL 10 MG 0 11/29/2019 tablet TABS carBAMazepine (TEGRETOL TEGRETOL-XR 100 MG 0 04/201611/29/2019 XR) 100 mg 12 hr extended [id number] release tablet cholecalciferol, vitamin VITAMIN D3 67380 0 04/0711/29/2019 D3, 1,250 mcg (50,000 UNIT TABS unit) Tab fluticasone propionate FLONASE ALLERGY 0 08/12/20 15 11/29/2019 (FLONASE ALLERGY RELIEF) RELIEF 50 MCG/ACT 50 mcg/actuation nasal SUSP spray methadone (METHADOSE) 40 METHADONE HCL 40 MG 0 11/29/2019 mg disintegrating tablet TBSO documented as of this encounter Plan of Treatment Upcoming Encounters Date Type Specialty Care Team Description 07/08/2021 Appointment Behavioral Health Francisco Torres, MS W documented as of this encounter Procedures Procedure Name Priority Date/Time Associated Comments Diagnosis DIFFERENTIAL AUTOMATED Routine 04/21/2016 12:40 R esults for this ( Y) PM EDT procedure are i n the results section. TREPONEMA PALLIDUM Routine 04/21/2016 12:40 Resul ts for this (SYPHILIS) ANTIBODY PM EDT procedur e are in W/REFLEX the results section. CBC AND DIFFERENTIAL Routine 04/21/2016 12:40 Res ults for this PM EDT procedure are i n the results section. COMPREHENSIVE Routine 04/21/2016 12:40 Results fo r this METABOLIC PANEL PM EDT procedure ar e in the results section. documented in this encounter Results Differential automated ([facility] Y) (04/21/2016 12:40 PM EDT) Pathologist Sig nature Neutrophils Relative 62.7 45.0 - 90.0 % [facility] Lymphocytes Relative 28.9 10.0 - 50.0 % [facility] Monocytes Relative 7.0 3.0 - 11.0 % [facility] Eosinophils Relative 0.9 0.0 - 4.0 % [facility] Basophils Relative 0.3 0.0 - 2.0 % [facility] Immature Granulocytes 0.2 0.0 - 0.4 % [facility] Neutrophils Absolute 3.66 2.20 - 7.20 X [facility] 10(3)/mcL LABORATORY Lymphocytes Absolute 1.69 0.50 - 5.40 X [facility] 10(3)/[facility]L LABORATORY Monocytes Absolute 0.41 0.10 - 1.20 X [facility] 10(3)/[facility]L LABORATORY Eosinophils Absolute 0.05 0.00 - 0.40 X [facility] 10(3)/[facility] LABORATORY Basophils Absolute 0.02 0.00 - 0.20 X [facility] 10(3)[facility] LABORATORY Immature Granulocytes 0.01 0.00 - 0.03 X [facility] L (Abs) 10(3)/[facility] LABORATORY Specimen Blood specimen (specimen) Performing Organization Address [facility] Phon e Number [facility] [address] [place], [place] [address] [facility] [address] [place], [place] [address] Treponema pallidum (syphillis) antibody ([facility] LMW Q) (04/21/2016 12:40 PM EDT) Pathologist Sig nature Treponema Screen Non-Reactive Non Reactive. [facility] Specimen Blood specimen (specimen) Performing Organization Address [facility] Code Phon e Number [facility] [address] [place] [address] [facility] [address] [place], [place] [address] CBC and differential (04/21/2016 12:40 PM EDT) WBC 5.84 4.80 - 10.80 X [facility] 10(3)/[facility] LABORATORY RBC 4.50 3.50 - 5.50 X [place] [address](6)[facility] LABORATORY Hemoglobin 11.1 (L) 12.0 - 15.0 [facility] g/dL LABORATORY Hematocrit 36.7 36.0 - 48.0 % [facility] MCV 81.6 81.0 - 99.0 [place] [facility] MCH 24.7 (L) 25.0 - 36.0 pg [facility] MCHC 30.2 (L) 33.0 - 37.0 [facility] g/dL LABORATORY Red Cell Distribution 49.2 (H) 36.4 - 46.3 FL [facility] Width SD LABORATORY Red Cell Distribution 16.6 (H) 11.7 - 14.4 % [facility] Width-CV LABORATORY Platelets 251 120 - 450 X [place] [address](3)/[facility] LABORATORY MPV 11.0 (H) 8.5 - 9.0 [place] [facility] nRBC% 0.0 0.0 - 0.0 /100 [facility] WBC LABORATORY nRBC Absolute, Auto 0.00 0.00 - 0.00 [facility] /[facility] LABORATORY Specimen Blood specimen (specimen) Performing Organization Address City/State/ZIP Code Phon e Number [facility] [address] [place], [place] [address] [facility] [address] [place], [place] [address] Comprehensive metabolic panel (04/21/2016 12:40 PM EDT) Glucose 82 70.00 - [place] 100.00 HOSPITAL mg/dL LABORATORY BUN 9 7.0 - 17.0 [place] mg/dL [facility] Creatinine 0.79 0.52 - 1.04 [place] mg/dL [facility] Sodium 144 137 - 145 [place] mmol/L HOSPITAL LABORATORY Potassium 5.1 3.5 - 5.1 [place] mmol/L [facility] Chloride 103 98 - 107 [place] mmol/L [facility] CO2 27 22 - 30 [place] mmol/L [facility] Anion Gap 13 7 - 16 [place] mmol/L [facility] Calcium 9.3 8.4 - 10.2 [place] mg/dL [facility]OS[facility]ITAL LAB[facility] Total Protein 7.0 6.3 - 8.2 [place] g/dL [facility]ITAL LAB[facility] Albumin 4.0 3.5 - 5.0 [place] g/dL [facility] Globulin 3.0 2.0 - 3.5 [place] g/dL [facility] A/G Ratio 1.3 1.1 - 2.2 [facility] Aspartate 17 14 - 36 u/l [place] Aminotransferase (AST) [facility]OS[facility]ITAL LABORATORY Alkaline Phosphatase 57 38 - 126 [place] u/l [facility] LAB[facility] Total Bilirubin 0.3 0.2 - 1.3 [place] mg/dL [facility]ITAL LAB[facility]ORY Alanine 20 9 - 52 u/l [place] Aminotransferase (ALT) HOSPITAL LABORATORY eGFR >60 [place] [facility] Comment: HOSPITAL Interpretation LABORATORY Stage 1 ?? 90 ml/min or greater ? Healthy kidneys or kidney damage with normal or high eGFR Stage 2 ?? 60-89 ml/min ? Kidney damag e and mild decrease in eGFR Stage 3 ?? 30-59 ml/min ? Moderate dec rease in eGFR Stage 4 ?? 15-29 ml/min ? Severe decre ase in eGFR Stage 5 ?<15 ml/min ?Kidney lupe lure The GFR is calculated to inc lude the patient's race and gender as entered in Patient Demographics. Specimen Blood specimen (specimen) Performing Organization Address City/State/ZIP Code Phon e Number [facility] [address] [place], [place] [address] [facility] [address] [place], [place] [address] documented in this encounter Visit Diagnoses Not on filedocumented in this encounter
--- OUTSIDE RECORDS SUMMARY | 2021-07-04 08:14 | XMS_ITS | Encounter Summary ---
:1985 Author Organization [facility] Address [address] [place] [address] Care Team Providers Name Role Phone Katheryn Miles APRN Primary Care Provider [phone] Encounter Details Date Type Department Care Team Description 08/21/2019 Hospital Encounter [facility] Lolita Ulloa stance induced mood disorder (HC Code) (Primary Dx); Laboratory MD Yuly Polysubstance dependence (HC Code) Specimens [address] [place] [address] [facility] [address] [place] [phone] Social History Tobacco Use Types Packs/Day Years Used Date Current Every Day Smoker Cigarettes 1 Alcohol Use Standard Drinks/Week Comments Yes 0 [...] Sig Dispensed Refills Start Date End Date acetaminophen (TYLENOL TYLENOL EXTRA STRENGTH 0 0 06/14/2016 11/29/2019 EXTRA STRENGTH) 500 mg 500 MG TABS tablet albuterol sulfate PROAIR HFA 108 (90 0 08/12/2015 11/29/2019 (PROAIR HFA) 90 Base) MCG/ACT AERS mcg/actuation HFA aerosol inhaler ARIPiprazole (ABILIFY) ABILIFY 10 MG TABS 0 04/0611/29/2019 10 mg tablet bacitracin zinc 500 BACITRACIN (EX) OINT 0 201511/29/2019 unit/gram ointment busPIRone (BUSPAR) 10 BUSPIRONE HCL 10 MG 0 04/0611/29/2019 mg tablet TABS carBAMazepine (TEGRETOL TEGRETOL-XR 100 MG 0 06/04/201611/29/2019 XR) 100 mg 12 hr [id number] extended release tablet cholecalciferol, VITAMIN D3 61335 UNIT 0 04/07/20 16 11/29/2019 vitamin D3, 1,250 mcg TABS (50,000 unit) Tab docusate sodium COLACE 100 MG CAPS 0 05/31/2016 0 11/29/2019 (COLACE) 100 mg capsule fluticasone propionate FLONASE ALLERGY RELIEF 0 1 11/29/2019 (FLONASE ALLERGY 50 MCG/ACT SUSP RELIEF) 50 mcg/actuation nasal spray methadone (METHADOSE) METHADONE HCL 40 MG 0 04/0611/29/2019 40 mg disintegrating TBSO tablet perphenazine 16 MG Take 1 tablet (16 mg 14 tablet 0 017 09/05/2019 tablet total) by mouth nightly.. polyethylene glycol MIRALAX POWD 0 05/31/2016 3350 (MIRALAX ORAL) triamcinolone (KENALOG) TRIAMCINOLONE 0 6 11/29/2019 0.025 % cream ACETONIDE 0.025 % CREA documented as of this encounter Plan of Treatment Upcoming Encounters Date Type Specialty Care Team Description 07/08/2021 Appointment Behavioral Health Francisco Torres, MS W documented as of this encounter Visit Diagnoses Diagnosis Substance induced mood disorder (HC Code ) - Primary Drug-induced mood disorder Polysubstance dependence (HC Code) Combinations of drug dependence excludin g opioid type drug, unspecified documented in this encounter Care Teams Equipment Maintenance Supervisor Relationship Specialty Start Date End Date Katheryn Miles APRN PCP - General 05/30/19 [facility] [place] [phone] documented as of this encounter
--- OUTSIDE RECORDS SUMMARY | 2021-07-04 08:14 | XMS_ITS | Encounter Summary ---
:1985 Author Organization [facility] Address [address] [place] [address] Care Team Providers Name Role Phone Katheryn Miles APRN Primary Care Provider [phone] Encounter Details Date Type Department Care Team Description 09/04/2019 Documentation [facility] Deena Loera [address] [place], [place] [address] Social History Tobacco Use Types Packs/Day Years [...] as of this encounter Progress Notes Deena Brooke - 09/04/2019 1:00 PM EST [facility]-CASE MANAGEMENT Client Name: Shakila Grove Date: 09/04/2019 Date of : 1985 Type of Service: Case Management Time of Service: 1pm Length of Service: 30mins Comments:Client arrived for induction to suboxone. Completed paperwork, discussed the program. Client has appointment with clinician for BIO scheduled for 09/07/2019. Plan: Client will follow up in 1 week, or as needed for recovery supports. Client is also going to attend group on Tuesday night at 6pm. documented in this encounter Plan of Treatment Upcoming Encounters Date Type Specialty Care Team Description 07/08/2021 Appointment Behavioral Health Francisco Torres, MS W documented as of this encounter Visit Diagnoses Not on filedocumented in this encounter Care Teams Roller Setter Relationship Specialty Start Date End Date Katheryn Miles APRN PCP - General 05/30/19 [place] [address] documented as of this encounter
--- OUTSIDE RECORDS SUMMARY | 2021-07-04 08:14 | XMS_ITS | Encounter Summary ---
:1985 Author Organization [facility] and [facility] Address [address] [place] [phone] Care Team Providers Name Role Phone Katheryn Miles APRN Primary Care Provider [phone] Encounter Details Date Type Department Care Team Description 08/28/2019 Hospital Encounter [facility] Lolita Ulloa induced Laboratory Specimens MD Yuly mood disorder ( [address] [place] Code) (Primary Dx) [place] [address] Ave [phone] [place] [address] [place] [phone] Social History Tobacco Use Types Packs/Day Years [...] BACITRACIN (EX) OINT 0 201511/29/2019 unit/gram ointment buPROPion (WELLBUTRIN 0 08/27/2019 XL) 150 mg XL 24 hr extended release tablet busPIRone (BUSPAR) 10 BUSPIRONE HCL 10 MG 0 04/0611/29/2019 mg tablet TABS carBAMazepine (TEGRETOL TEGRETOL-XR 100 MG 0 0604/201611/29/2019 XR) 100 mg 12 hr [id number] extended release tablet cholecalciferol, VITAMIN D3 55294 UNIT 0 04/07/20 16 11/29/2019 vitamin D3, [...] Procedure Name Priority Date/Time Associated Comments Diagnosis TRICHOMONAS VAGINALIS Routine 08/28/2019 10:28 Substance induc ed Results for this BY NAAT (L YH) PM EDT mood disorder (HC proc edure are in Code) the results section. C. TRACHOMATIS / N. Routine 08/28/2019 10:28 Substance induced Results for this GONORRHOEAE, NAAT PM EDT mood disorder (HC proce dure are in ([facility] Y) Code) the results section. NEISSERIA GONORRHEA, Routine 08/28/2019 10:28 Substance induce d Results for this NAAT ([facility] PM EDT mood disorder (HC pr ocedure are in Y) Code) the results section. CHLAMYDIA Routine 08/28/2019 10:28 Substance induced Result s for this TRACHOMATIS, NAAT PM EDT mood disorder (HC proce dure are in ([facility]) Code) the results section. documented in this encounter Results Chlamydia trachomatis, NAAT ([facility]) (08/28/2019 10:28 PM EDT) Pathologist Sig nature Chlamydia DNA Probe Negative Negative [facility] Specimen Culture - Specimen from cervix or vagina (specimen) Performing Organization Address [facility] [address] [facility] Phon e Number [facility] DE[facility] OF LABORATORY [address] [place] [address] [address], [facility] [phone] LABORATORY Neisseria gonorrhoeae, NAAT ([facility]) (08/28/2019 10:28 PM EDT) Pathologist Sig nature Neisseria gonorrhoeae, Negative Negative [facility] DNA Probe [facility] Specimen Culture - Specimen from cervix or vagina (specimen) Performing Organization Address [facility] [address] [facility] Phon e Number [facility] DEPART[facility] OF LABORATORY [address] [place] [address] [address], [facility] [phone] LABORATORY Trichomonas vaginalis by NAAT () (08/28/2019 10:28 PM EDT) Pathologist Sig nature Trichomonas Vaginalis Negative Negative [facility] by NAAT [facility] LAB[facility] Specimen Culture - Specimen from cervix or vagina (specimen) Performing Organization Address [facility] [address] [facility] Phon e Number [facility] DEPART[facility] OF LABORATORY [address] [place] [address] [address], [place] [phone] LABORATORY documented in this encounter Visit Diagnoses Diagnosis Substance induced mood disorder (HC Code ) - Primary Drug-induced mood disorder documented in this encounter Care Teams Packaging Inspector Relationship Specialty Start Date End Date Katheryn Miles APRN PCP - General 05/30/19 [facility] [place] [phone] documented as of this encounter
--- OUTSIDE RECORDS SUMMARY | 2021-07-04 08:14 | XMS_ITS | Encounter Summary ---
:1985 Author Organization [facility] Address [address] [facility] [place] [address] Care Team Providers Name Role Phone Katheryn Miles APRN Primary Care Provider [phone] Reason for Visit Reason Comments Follow-up Suboxone follow up Last med intake 09/11/19 @ 5:30 am Last U/A on 09/07/19 Encounter Details Date Type Department Care Team Description 09/11/2019 Follow-Up [facility] Yumi Kaufman, Opioid use disorder, severe, dependence (HC Code) (Primary Dx); [address] [facility] Opiate dependence, continuous (HC Code) [place] [address] [address] [facility] [phone] [place] [address] (Wo rk) Social History Tobacco Use Types [...] Sign Reading Time Taken Comments Blood Pressure 113/69 09/11/2019 2:06 PM EST Pulse 70 09/11/2019 2:06 PM EST Temperature - - Respiratory Rate 20 09/11/2019 2:06 PM EST Oxygen Saturation 95% 09/11/2019 2:06 PM EST Inhaled Oxygen Concentration - - Weight 97.5 kg (215 lb) 09/11/2019 2:06 PM EST Height 160 cm (5' 3) 09/11/2019 2:06 PM EST Body Mass Index 38.09 09/11/2019 2:06 PM EST documented in this encounter Progress Notes Yumi Davis, TOLU - 09/11/2019 1:40 PM EST Return Visit Note Health Literacy score: No flowsheet data found. Preferred language is Vietnamese Chief Concern(s): Chief Complaint Patient presents with ??? Follow-up Suboxone follow up Last med intake 09/11/19 @ 5:30 am Last U/A on 09/07/19 HPI: Shakila Grove is a 33 y.o. female here for opiate dependency and taking Suboxone. Shakila reportsthey doing well and the Suboxone allows the completion of their daily activities and to be gainfullyemployed. [place] Prescription Drug Monitoring website was accessed on 09/11/2019 and patient record was reviewed. History of previous urine drug screens reviewed. Patient's medications, allergies, problem list, past medical, surgical, social and family histories were reviewed and updated as appropriate ROS: Review of Systems Constitutional: Negative. Respiratory: Negative. Cardiovascular: Negative. Neurological: Negative. Psychiatric/Behavioral: Negative. Exam Vitals: BP 113/69 (Site: r a, Position: Sitting, Cuff Size: Large) Pulse 70 Resp 20 Ht 5' 3 (1.6 m) Wt 97.5 kg SpO2 95% BMI 38.09 kg/m?? (215 lbs.) Pain Score: 0 - No pain BMI (Calculated): 38.2 Physical Exam Constitutional: She appears well-developed and well-nourished. Cardiovascular: Normal rate. Pulmonary/Chest: Effort normal. Neurological: She is alert. Psychiatric: She has a normal mood and affect. Recent Labs Lab Results Component Value Date CHOL 180 03/08/2017 LDL 117 (H) 03/08/2017 TRIG 95 03/08/2017 HDL 44 03/08/2017 No flowsheet data found. The ASCVD Risk score (Sharda BEEBE Jr., et al., 2013) failed to calculate for the following reasons: The 2013 ASCVD risk score is only valid for ages 40 to 79 Quality Screening [facility] Follow-up List [facility] Lifestyle Behavior Changes BMI: Abnormal BMI Follow-Up Plan 09/11/2019 BMI (Calculated) 38.2 Some recent data might be hidden SBIRT Score: No flowsheet data found. HITS Total Score: No flowsheet data found. Family Planning: No flowsheet data found. Depression Screen Total: No flowsheet data found. Assessment & Plan Shakila Grove is a 33 y.o. female Other Orders ICD-10-CM 1. Opioid use disorder, severe, dependence (HC Code) F11.20 Refill suboxone Follow-Up Return in about 1 week (around 09/18/2019) for Opiate Dependency. Health Maintenance Health Maintenance Topic Date Due ??? HIV screening 2002 ??? Pneumo Vaccine 19-64 Medium Risk (1 of 1 - PPSV23) 2006 ??? Tetanus adult (Td q 10,TDAP once) 2007 ??? Cervical cancer screening (Pap Smear) 2008 ??? Influenza vaccine 05/31/2019 Electronically Signed by Yumi Davis APRN, September 11, 2019 documented in this encounter Miscellaneous Notes Addendum Note - Yumi Davis APRN - 09/11/2019 1:40 PM EST Addended by: YUMI DAVIS on: 09/12/2019 02:12 PM Modules accepted: Orders documented in this encounter Plan of Treatment Upcoming Encounters Date Type Specialty Care Team Description 07/08/2021 Appointment Behavioral Health Francisco Torres, MS W documented as of this encounter Visit Diagnoses Diagnosis Opioid use disorder, severe, dependence (HC Code) - Primary Opiate dependence, continuous (HC Code) Opioid type dependence, continuous documented in this encounter Care Teams Corporation Officer Relationship Specialty Start Date End Date Katheryn Miles APRN PCP - General 05/30/19 [place] [phone] documented as of this encounter
--- OUTSIDE RECORDS SUMMARY | 2021-07-04 08:14 | XMS_ITS | Encounter Summary ---
:1985 Author Organization [facility] Address [address] [place] [address] Care Team Providers Name Role Phone Katheryn Miles APRN Primary Care Provider [phone] Reason for Visit Reason Comments Other Group Encounter Details Date Type Department Care Team Description 09/06/2019 Documentation [facility] Deena Loera [address] [place] [phone] Social History Tobacco Use Types Packs/Day Years [...] this encounter Progress Notes Deena Brooke - 09/05/2019 6:00 PM EST [facility]-CASE MANAGEMENT Client Name: Shakila Grove Date: 09/06/2019 Date of : 1985 Type of Service: Case Management Time of Service: 6pm Length of Service: 45 mins Comments:Client arrived for group on time. Client shared about her experiences and well as stressor and triggers. Client spoke very openly, was interactive with other clients, and offered suggestions to others. Plan: Client will attend [facility] on Wednesdays. Client will utilize recovery supports as needed. documented in this encounter Plan of Treatment Upcoming Encounters Date Type Specialty Care Team Description 07/08/2021 Appointment Behavioral Health Francisco Torres, MS W documented as of this encounter Visit Diagnoses Not on filedocumented in this encounter Care Teams Technology Assistant Relationship Specialty Start Date End Date Katheryn Miles APRN PCP - General 05/30/19 [facility] [place] [address] documented as of this encounter
--- OUTSIDE RECORDS SUMMARY | 2021-07-04 08:14 | XMS_ITS | Encounter Summary ---
:1985 Author Organization [facility] Address [address] [place] [id number] Care Team Providers Name Role Phone Katheryn Miles APRN Primary Care Provider [phone] Encounter Details Date Type Department Care Team Description 09/11/2019 Plan of Care Documentation Social History Tobacco [...] as of this encounter Miscellaneous Notes 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 Barriers I sometimes self sabotage. Recovery Capital: Family SupportsPersonal StrengthsFuture Goals Active Multidisciplinary Problems: MOOD ALTERATION: Active Descriptive Behaviors: Substance induced mood disorder: client reports racing thoughts, moving from one task to another quickly, depressive symtoms for weeks at a time, rachel reports current not struggling. Patient Stated Goal(s): I dont want to get back to that sad, depressed, hopeless place. Mcfp Goals/Criteria for Discharge: Medication compliance/adjustments;Demonstrated use of positive/appropriate coping mechanisms Short Term Goal: Patient will identify triggers related to altered mood as evidenced by??? Short Term Goals Objective : Learning two ways to manage frustration in a positive manner. Short Term Goals Target Date : 10/08/18 Short Term Goal Status : new Short Term Goal: Patient will return to baseline level of functioning as evidenced by??? Short Term Goals Objective : Assessing personal risk traits and resiliency traits and discuss the role each plays in coping with daily stresses during the time between therapy sessions. Short Term Goals Target Date : 10/08/18 Short Term Goal Status : new Intervention : Provide counseling and emotional support Frequency : 1x weekly therapy session with SENIOR ENERGY MARKET COORDINATOR- utilizing, TX, CBT, and continued attendance in pathways to recvoery. Intervention : Provide positive reinforcement Frequency : 1x weekly therapy session with SENIOR ENERGY MARKET COORDINATOR- utilizing, TX, CBT, and continued attendance in pathways to recvoery. SUBSTANCE ABUSE/USE: Active Descriptive Behaviors: polysubstance use d/o sx: daily cravings, triggers come frequenlty, inability to refuse the substance, poor distress tolerance- using drugs as stress relief technique Patient Stated Goal(s): I want to keep from relapsing. Ant[employer]isher Goals/Criteria for Discharge: Re-establish sobriety, identify connection between psychiatric symptoms and substance abuse and develop an active relapse prevention plan;Demonstrated use of positive/appropriate coping mechanisms Short Term Goal: Patient will report a decrease in substance use as evidenced by ??? Short Term Goals Objective : Client will learn min. two ways to regulate her distress (or mood, or anxiety, or depression) without use of mood- altering substances . Short Term Goals Target Date : 10/08/19 Short Term Goal Status : new Short Term Goal: Patient will increase awareness of triggers/cravings to substance use as evidenced by ??? Short Term Goals Objective : keeping a personal cravngs/ triggers journal- documenting each craving and scaling 0-10 how severe. Short Term Goals Target Date : 10/08/19 Short Term Goal Status : new Intervention : Facilitate patient identifying triggers/cravings Frequency : 1x weekly individual therapy sessions with SENIOR ENERGY MARKET COORDINATOR- utilizing TX, CBT and continued enrollment in pathways to recovery. Intervention : Encourage identification/practice/mastery of adaptive coping skills Frequency : 1x weekly individual therapy sessions with SENIOR ENERGY MARKET COORDINATOR- utilizing TX, CBT and continued enrollment in pathways to recovery. Other Assessed Need(s) (Medical/Psychosocial) (List the Assessed Need and indicate the intervention/referral/deferred to community arts worker/PCP information) Problems related to the social environment: Client reports an imability at times to sustain sobriety by way of daily stressors, truggers, and cravings that have preveted her from staying clean in the past. 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 Client has been referred toseek SENIOR ENERGY MARKET COORDINATOR weekly for indsivudal therapy, and attend group therapy incuding: pathways to recovery, and relapse prevention It is suggested that client continue to remain receiving her suboxone treatment as well. Medical / Psychological Assessments: Medications: Assessment of medication side effects and/or adverse medication reactions is ongoing Current Outpatient Medications Medication Sig ??? buprenorphine-naloxone (SUBOXONE) 8-2 mg per sublingual film 1 strip in morning and 1/2 strip inevening ??? buPROPion (WELLBUTRIN XL) 150 mg XL 24 hr extended release tablet ??? propranolol (INDERAL) 20 mg Immediate Release tablet Take by mouth. ??? sertraline (ZOLOFT) 50 mg tablet Take 50 mg by mouth daily. No current facility-administered medications for this encounter. Consult / Referral Made: Individual Therapy Discharge Planning: Anticipated Discharge Date: TBD Anticipated Discharge Level of Care/ Disposition: To be determined Plan: client is a 33 year old, single, female living in [place], [place] Client was [facility] after being inducted on suboxone. Client's chief complaint when presenting to [facility] wasI just want to stay clean and not back pedal into my use. Client reports past depressive symptomsranging from: depressed mood, lack of interest and pleasure in activities, decreased concertation, and extreme fatigue, but reports these symptoms have not persisted since she was released from [facility] rehab in February 2018. Client is currently prescribed Zoloft 50mg 1x daily, wellbutrin 150mg 1x daily, and Inderal 20mg 1x daily all prescribed by psychiatrist Uma from [facility] in February 2018. Clientreports that she has sporadically taken the medication from February 2018 to present, and notices I get this feeling of happiness when I do take them. Client has a long history of psychiatric and substance use treatment episodes. Client will meet with individual therapist 1x weekly to continue rapport building. Client will benefit from CBT techniques utilizing TX. Client has been scheduled with Dr. Baeza for initial psychiatric evaluation on 09/13/19. Client has been referred to relapse prevention group on at 9:00 am, Client plans to continue pathways of recovery group attendance on Tuesdays. Client completed UTOX-results are pending MD Certification: Services in treatment plan are reasonable and necessary for the diagnosis and treatment of the itemson the problem list to improve functioning. Frequency of the services is appropriate. I certify the medical necessity of this treatment plan until the next treatment plan review. [facility] Adult Clinical Measures Row Name 09/07/19 1500 Clinical Measures Clinical Measure Review Type Admission Measure Clinical Measures CAGE Assessment;Mental Health Screening Form III (MHSF-III) CAGE C:Have you ever felt you should [...] to get rid of a hangover (Eye Reliability Engineer)? Yes E:Have you ever used drugs first thing in the morning to steady your nerves or to get rid of a hangover (Eye Reliability Engineer)? Yes Cage Assesment Score 8 Mental Health Screening Form III 1. Have you ever talked to a psychiatrist, psychologist, therapist, social work nurse or counselor about an emotional problem? Yes 2. Have you ever felt you needed help with your emotional problems, or had people tell you that youshould get help for emotional problems Yes 3. Have you been advised to take medication for anxiety, depression, hearing voices or other emotional problem Yes 4. Have you ever been see in a psychiatric ER or hospitalized for psychiatric reasons Yes 5. Have you ever heard voices no one else could hear/see things others could not see No 6. Have you ever been depressed for weeks at a time, lost pleasure in activities, trouble concentrating, thought of killing yourself No 6a. Did you ever attempt to kill yoursel No 7. Have you ever had nightmares/flashbacks as a reult of a traumatic event No 8. Have you ever experienced any strong fears (heights, insects, social events, being alone) No 9. Have you ever given in to an impulsive/aggressive urge that has resulted in harm/destruction of property Yes 10. Have you ever felt people had something against you/influencing your thoughts No 11. Have you ever experienced emotional problems associated with sexual interests/activities/partner No 12. Was there ever a time in your life you spent a lot of time worrying about gaining weight/becoming fat/controlling your eating No 13. Every had period of time when you were so full of energyand ideas came very rapidly, needed little sleep, thought you could do almost anything No 14. Ever had spells/attacks when suddenly felt anxious, frightened and uneasy and started sweating/heart raced/shaking/thought you would faint Yes 15. Ever had persistant, lasting thought or impulse that caused considerable stress and impacted normal routines Yes 16. Ever lost considerable sums of money or had problems with work/relationships due to gambling No 17. Been told by teachers, guidance counselors or others that you have a special learning problem No Mental Health Screening Form (MHSF-III) Total Score 5 documented in this encounter Plan of Treatment Upcoming Encounters Date Type Specialty Care Team Description 07/08/2021 Appointment Behavioral Health Francisco Torres, MS W documented as of this encounter Visit Diagnoses Not on filedocumented in this encounter Care Teams Family Service Aide Relationship Specialty Start Date End Date Katheryn Miles APRN PCP - General 05/30/19 [address] [place] [address] documented as of this encounter
--- OUTSIDE RECORDS SUMMARY | 2021-07-04 08:14 | XMS_ITS | Encounter Summary ---
:1985 Author Organization [facility] Address [address] [place] [address] Care Team Providers Name Role Phone Katheryn Miles APRN Primary Care Provider [phone] Encounter Details Date Type Department Care Team Description 09/04/2019 Scanned Document [facility] [address], [place] [id number] Social History Tobacco Use Types Packs/Day Years [...] documented as of this encounter Care Teams Warrant Clerk Relationship Specialty Start Date End Date Katheryn Miles APRN PCP - General 05/30/19 [place] [address] documented as of this encounter
--- OUTSIDE RECORDS SUMMARY | 2021-07-04 08:14 | XMS_ITS | Encounter Summary ---
:1985 Author Organization [facility] Address [address] [facility] [place] [address] Care Team Providers Name Role Phone Katheryn Miles APRN Primary Care Provider [phone] Reason for Visit Reason Comments Follow-up Suboxone F/U. Last med intak e today @ 7am. Last U/A 09/07/19 Encounter Details Date Type Department Care Team Description 09/18/2019 Follow-Up [facility] Esteban Kaufman, Opiate dependence, continuou s (HC Code) (Primary Dx); [address] [facility] Cocaine use disorder, moderate, dependen ce (HC Code); [place] [address] [address] [facility] History of ongoing treatment with high-r isk medication [phone] [place] [address] (Wo rk) Social History Tobacco Use Types [...] Sign Reading Time Taken Comments Blood Pressure 131/81 09/18/2019 1:18 PM EST Pulse 77 09/18/2019 1:18 PM EST Temperature - - Respiratory Rate 20 09/18/2019 1:18 PM EST Oxygen Saturation 98% 09/18/2019 1:18 PM EST Inhaled Oxygen Concentration - - Weight 97.7 kg (215 lb 6.4 oz) 09/18/2019 1:18 PM EST Height 160 cm (5' 3) 09/18/2019 1:18 PM EST Body Mass Index 38.16 09/18/2019 1:18 PM EST documented in this encounter Progress Notes Esteban Desai, TOLU - 09/18/2019 1:20 PM EST Return Visit Note Health Literacy score: No flowsheet data found. Preferred language is [place] Citizen Chief Concern(s): Chief Complaint Patient presents with ??? Follow-up Suboxone F/U. Last med intake today @ 7am. Last U/A 09/07/19 HPI: Shakila Grove is a 33 y.o. female here for opiate dependency and taking Suboxone. Shakila reportsthey doing well and the Suboxone allows the completion of their daily activities and to be gainfullyemployed. [place] Prescription Drug Monitoring website was accessed on 09/18/2019 and patient record was reviewed. History of previous urine drug screens reviewed. Last UDS positive cocaine - we discussed this at length Patient's medications, allergies, problem list, past medical, surgical, social and family histories were reviewed and updated as appropriate ROS: Review of Systems Constitutional: Negative. Respiratory: Negative. Cardiovascular: Negative. Neurological: Negative. Psychiatric/Behavioral: Negative. Exam Vitals: BP 131/81 (Site: r a, Position: Sitting, Cuff Size: Medium) Pulse 77 Resp 20 Ht 5' 3 (1.6 m) Wt 97.7 kg SpO2 98% BMI 38.16 kg/m?? (215.4 lbs.) Pain Score: 0 - No pain BMI (Calculated): 38.2 Physical Exam Constitutional: Appearance: She is well-developed. Cardiovascular: Rate and Rhythm: Normal rate. Pulmonary: Effort: Pulmonary effort is normal. Neurological: Mental Status: She is alert. Recent Labs Lab Results Component Value Date CHOL 180 03/08/2017 LDL 117 (H) 03/08/2017 TRIG 95 03/08/2017 HDL 44 03/08/2017 No flowsheet data found. The ASCVD Risk score (Shardawilliam BEEBE Jr., et al., 2013) failed to calculate for the following reasons: The 2013 ASCVD risk score is only valid for ages 40 to 79 Quality Screening [facility] Follow-up List [facility] Lifestyle Behavior Changes BMI: Abnormal BMI Follow-Up Plan 09/18/2019 BMI (Calculated) 38.2 Some recent data might be hidden SBIRT Score: No flowsheet data found. HITS Total Score: No flowsheet data found. Family Planning: No flowsheet data found. Depression Screen Total: No flowsheet data found. Assessment & Plan Shakila Grove is a 33 y.o. female Other Orders ICD-10-CM 1. Opiate dependence, continuous (HC Code) F11.20 2. Cocaine use disorder, moderate, dependence (HC Code) F14.20 3. History of ongoing treatment with high-risk medication Z79.899 Follow-Up Return in about 1 week (around 09/25/2019) for Opiate Dependency. Health Maintenance Health Maintenance Topic Date Due ??? HIV screening 2002 ??? Pneumo Vaccine 19-64 Medium Risk (1 of 1 - PPSV23) 2006 ??? Tetanus adult (Td q 10,TDAP once) 2007 ??? Cervical cancer screening (Pap Smear) 2008 ??? Influenza vaccine 05/31/2019 Electronically Signed by Esteban Desai APRN, September 18, 2019 documented in this encounter Plan of Treatment Upcoming Encounters Date Type Specialty Care Team Description 07/08/2021 Appointment Behavioral Health Francisco Torres, W Scheduled Orders Name Type Priority Associated Diagnoses Order S chedule DRUG TOX MONITORING Lab Routine History of ongoing Ex pected: 09/18/2019, FENTANYL, W/CONF, U (Q) treatment with hi gh-risk Expires: 10/18/2019 medication documented as of this encounter Procedures Procedure Name Priority Date/Time Associated Comments Diagnosis DRUG TOX MONITORING Routine 09/18/2019 2:08 PM History of jacque oing Results for this 4 W/CONFIRM, URINE EST treatment with procedu re are in (Q) high-risk the results medication section. documented in this encounter Results Drug tox monitoring 4 w/confirm, urine (Q) (09/18/2019 2:08 PM EST) Amphetamines NEGATIVE <500 [facility] ng/mL [facility] Amphetamines CANCELEDComment: <250 [facility] Result canceled by ng/mL LABORATORY the ancillary. Methamphetamine, CANCELEDComment: <250 [facility] Confirmation by GCMS, Serum Result canceled by ng/mL LABORAT ORY the ancillary. Barbiturates NEGATIVE <300 [facility] ng/mL [facility] Amobarbital, Confirmation CANCELEDComment: <100 [facility] by GCMS, Serum Result canceled by ng/mL LABORATORY the ancillary. Butalbital, Confirmation by CANCELEDComment: <100 [facility] GCMS, Serum Result canceled by ng/mL LABORATORY the ancillary. Pentobarbital, Confirmation CANCELEDComment: <100 [facility] by GCMS, Serum Result canceled by ng/mL LABORATORY the ancillary. Phenobarbital, Confirmation CANCELEDComment: <100 [facility] by GCMS, Serum Result canceled by ng/mL LABORATORY the ancillary. Secobarbital, Confirmation CANCELEDComment: <100 [facility] by GCMS, Serum Result canceled by ng/mL LABORATORY the ancillary. Benzodiazepines NEGATIVE <100 [facility] ng/mL LAB[facility] Alphahydroxyalprazolam, Qn, CANCELEDComment: <25 ng/mL [facility] Urine Result canceled by LABORATORY the ancillary. Alphahydroxymidazolam CANCELEDComment: <50 ng/mL [facility] Result canceled by LABORATORY the ancillary. Alphahydroxytriazolam CANCELEDComment: <50 ng/mL [facility] Result canceled by LABORATORY the ancillary. Aminoclonazepam CANCELEDComment: <25 ng/mL [facility] Result canceled by LABORATORY the ancillary. Hydroxyethylflurazepam CANCELEDComment: <50 ng/mL [facility] Result canceled by LABORATORY the ancillary. Lorazepam Verif, by GCMS, CANCELEDComment: <50 ng/mL [facility] Serum Result canceled by LABORATORY the ancillary. Nordiazepam Verif, by GCMS, CANCELEDComment: <50 ng/mL [facility] Serum Result canceled by LABORATORY the ancillary. Oxazepam Verif, by GCMS, CANCELEDComment: <50 ng/mL [facility] Serum Result canceled by LABORATORY the ancillary. Temazepam CANCELEDComment: <50 ng/mL [facility] Result canceled by LABORATORY the ancillary. Buprenorphine POSITIVE (A) <5 ng/mL [facility] Buprenorphine 87 (H)Comment: See <5 ng/mL [facility] Note 1 LABORATORY Norbuprenorphine 348 (H)Comment: See <5 ng/mL [facility] Note 1 [facility]OR[facility]ORY Cocaine Metabolite POSITIVE (A) <150 [facility] ng/mL LAB[facility] Benzoylecgonine 130 (H)Comment: See <100 [facility] Note 1 ng/mL LAB[facility]ORY Heroin Metabolite NEGATIVE <10 ng/mL [facility] 6 Acetylmorphine CANCELEDComment: <10 ng/mL [facility] Result canceled by LABORATORY the ancillary. Marijuana Metabolite POSITIVE (A) <20 ng/mL [facility] Marijuana Metabolite 77 (H)Comment: See <5 ng/mL [facility] Note 1 LABOR[facility]ORY Methadone Metabolite NEGATIVE <100 [facility] ng/mL LAB[facility] EDDP CANCELEDComment: <100 [facility] Result canceled by ng/mL LABORATORY the ancillary. Methadone CANCELEDComment: <100 [facility] Result canceled by ng/mL LABORATORY the ancillary. Opiates NEGATIVE <100 [facility] ng/mL [facility] Codeine, Confirmation by CANCELEDComment: <50 ng/mL [facility] GCMS, Serum Result canceled by LABORATORY the ancillary. Hydrcodone, Confirmation by CANCELEDComment: <50 ng/mL [facility] GCMS, Serum Result canceled by LABORATORY the ancillary. Hydromorphone CANCELEDComment: <50 ng/mL [facility] Result canceled by LABORATORY the ancillary. Morphine, Confirmation by CANCELEDComment: <50 ng/mL [facility] GCMS, Serum Result canceled by LABORATORY the ancillary. Norhydrocodone CANCELEDComment: <50 ng/mL [facility] Result canceled by LABORATORY the ancillary. Oxycodone, Confirmation by NEGATIVE <100 [facility] GCMS, Serum ng/mL LABORATORY Noroxycodone CANCELEDComment: <50 ng/mL [facility] Result canceled by LABORATORY the ancillary. Oxycodone CANCELEDComment: <50 ng/mL [facility] Result canceled by LABORATORY the ancillary. Oxymorphone CANCELEDComment: <50 ng/mL [facility] Result canceled by LABORATORY the ancillary. Phencyclidine NEGATIVE <25 ng/mL [facility] Phencyclidine CANCELEDComment: <25 ng/mL [facility] Result canceled by LABORATORY the ancillary. Confirmation Testing CANCELEDComment: [facility] Performed At: Result canceled by LABORATORY the ancillary. Comment [facility] Comment: LABORATORY See Note 2 Note 1 This test was developed and its analytical performance characteristics have been determined by [employer]. It has not been cleared or approved by [facility] FDA. This assay has been validated pursuant to the CLI A regulations and is used for clinical purposes. Note 2 This drug testing is for medical treatment only. ?? Analysis was performed as non-forensic testing and these results should be used only by healthcare providers to render diagnosis or treatment, or to monitor progress of medical conditions. For assistance with interpreting these drug results, please contact a [employer] Toxicology Specialist: [phone] ( ), M-F, 8am-6pm EST. Specimen Urine Performing Organization Address City/State/[facility] Code [facility] e Number [facility] [address] [place] [id number] documented in this encounter Visit Diagnoses Diagnosis Opiate dependence, continuous (HC Code) - Primary Opioid type dependence, continuous Cocaine use disorder, moderate, dependen ce (HC Code) History of ongoing treatment with high-r isk medication Encounter for long-term (current) use of other medications documented in this encounter Care Teams Museum Exhibit Technician Relationship Specialty Start Date End Date Katheryn Miles APRN PCP - General 05/30/19 [address] [place], [place] [id number] documented as of this encounter
--- OUTSIDE RECORDS SUMMARY | 2021-07-04 08:14 | XMS_ITS | Encounter Summary ---
:1985 Author Organization [facility] Address [address] [place] [address] Care Team Providers Name Role Phone Katheryn Miles APRN Primary Care Provider [phone] Reason for Visit Reason Comments Other Suboxone induction Encounter Details Date Type Department Care Team Description 09/04/2019 Office Visit [facility] Esteban Kaufman, Opiate dependence, continuou s (HC Code) (Primary Dx); [address] [facility] History of ongoing treatment with high-r isk medication; [place] [address] [address] [facility] Bipolar affective disorder, remission st atus unspecified (HC Code) [phone] [place] [id number] Social History Tobacco Use Types Packs/Day Years [...] Sign Reading Time Taken Comments Blood Pressure 119/81 09/04/2019 2:00 PM EST Pulse 66 09/04/2019 2:00 PM EST Temperature - - Respiratory Rate 20 09/04/2019 2:00 PM EST Oxygen Saturation 97% 09/04/2019 2:00 PM EST Inhaled Oxygen Concentration - - Weight 97.9 kg (215 lb 12.8 oz) 09/04/2019 2:00 PM EST Height 160 cm (5' 3) 09/04/2019 2:00 PM EST Body Mass Index 38.23 09/04/2019 2:00 PM EST documented in this encounter Progress Notes Esteban Desai APRN - 09/04/2019 2:00 PM EST Return Visit Note Health Literacy score: No flowsheet data found. Preferred language is Puerto [place]ican Chief Concern(s): Chief Complaint Patient presents with ??? Other Suboxone induction HPI: Shakila Grove is a 33 y.o. female here for opiate dependency and taking Suboxone off the street illegally. She has been taking it for many months and she would like to take it legally. . Shakila reports they doing well and the Suboxone allows the completion of their daily activities and to be gainfully employed. [place] Prescription Drug Monitoring website was accessed on 09/04/2019 and patientrecord was reviewed. History of previous urine drug screens reviewed. Shakila has a history of Bipolar and substance abusae. She reports that she has lost the custody ofher 3 children. She reports she lives with her boyfriend and her sister. She was in therapy but willbe looking to our organization for further therapy. She states she just got a new job. Patient's medications, allergies, problem list, past medical, surgical, social and family histories were reviewed and updated as appropriate ROS: Review of Systems Constitutional: Negative. HENT: Negative. Eyes: Negative. Respiratory: Negative. Cardiovascular: Negative. Gastrointestinal: Negative. Endocrine: Negative. Genitourinary: Negative. Musculoskeletal: Negative. Skin: Negative. Allergic/Immunologic: Negative. Neurological: Negative. Hematological: Negative. Psychiatric/Behavioral: Negative. Exam Vitals: BP 119/81 (Site: r a, Position: Sitting, Cuff Size: Medium) Pulse 66 Resp 20 Ht 5' 3 (1.6 m) Wt 97.9 kg SpO2 97% BMI 38.23 kg/m?? (215.8 lbs.) Pain Score: 0 - No pain BMI (Calculated): 38.3 Physical Exam Constitutional: She appears well-developed and [...] for ages 40 to 79 Quality Screening [facility] Follow-up List [facility] Lifestyle Behavior Changes BMI: Abnormal BMI Follow-Up Plan 09/04/2019 BMI (Calculated) 38.3 Some recent data might be hidden SBIRT Score: No flowsheet data found. HITS Total Score: No flowsheet data found. Family Planning: No flowsheet data found. Depression Screen Total: No flowsheet data found. Assessment & Plan Shakila Grove is a 33 y.o. female Other Orders ICD-10-CM 1. Opiate dependence, continuous (HC Code) F11.20 buprenorphine-naloxone (SUBOXONE) 8-2 mg per sublingual film DRUG TOX MONITORING FENTANYL, W/CONF, U (Q) Drug tox monitoring 4 w/confirm, urine (Q) 2. History of ongoing treatment with high-risk medication Z79.899 UDS ordered 3. Bipolar affective disorder, remission status unspecified (HC Code) F31.9 Will be seen by our providers. Follow-Up Return in about 1 week (around 09/11/2019). Health Maintenance Health Maintenance Topic Date Due ??? HIV screening 2002 ??? Pneumo Vaccine 19-64 Medium Risk (1 of 1 - PPSV23) 2006 ??? Tetanus adult (Td q 10,TDAP once) 2007 ??? Cervical cancer screening (Pap Smear) 2008 ??? Influenza vaccine 05/31/2019 Electronically Signed by Esteban Desai APRN, September 04, 2019 documented in this encounter Plan of Treatment Upcoming Encounters Date Type Specialty Care Team Description 07/08/2021 Appointment Behavioral Health rFancisco Torres, W Scheduled Orders Name Type Priority Associated Diagnoses Order S chedule DRUG TOX MONITORING Lab Routine Opiate dependence, Ex pected: 09/04/2019, FENTANYL, W/CONF, U (Q) continuous (HC Co de) Expires: 10/04/2019 documented as of this encounter Procedures Procedure Name Priority Date/Time Associated Comments Diagnosis DRUG TOX MONITORING Routine 09/04/2019 2:37 PM Opiate depende nce, Results for this 4 W/CONFIRM, URINE EST continuous (HC procedu re are in (Q) Code) the results section. documented in this encounter Results Drug tox monitoring 4 w/confirm, urine (Q) (09/04/2019 2:37 PM EST) Amphetamines NEGATIVE <500 [facility] ng/mL [...] POSITIVE (A) <5 ng/mL [facility] Buprenorphine 66 (H)Comment: See <5 ng/mL [facility] Note 1 [facility]ORY Norbuprenorphine 306 (H)Comment: See <5 ng/mL [facility] Note [facility] Cocaine Metabolite NEGATIVE <150 [facility] ng/mL [facility] Benzoylecgonine CANCELEDComment: <100 [facility] Result canceled by ng/mL LABORATORY the ancillary. Heroin Metabolite NEGATIVE <10 ng/mL [facility] 6 Acetylmorphine CANCELEDComment: <10 ng/mL [facility] Result canceled by LABORATORY the ancillary. Marijuana Metabolite POSITIVE (A) <20 ng/mL [facility] Marijuana Metabolite 140 (H)Comment: See <5 ng/mL [facility] Note 1 [...] analytical performance characteristics have been determined by [facility]. It has not been cleared or approved by [facility] FDA. This assay has been validated pursuant [...] interpreting these drug results, please contact a [facility] Toxicology Specialist: [phone] ( ), M-F, 8am-6pm EST. Specimen Urine Performing Organization Address City/State/ZIP Code Phon e Number [facility] [address] [place], [place] [id number] documented in this encounter Visit Diagnoses Diagnosis Opiate dependence, continuous (HC Code) - Primary Opioid type dependence, continuous History of ongoing treatment with high-r isk medication Encounter for long-term (current) use of other medications Bipolar affective disorder, remission st atus unspecified (HC Code) documented in this encounter Care Teams Emery Wheel Molder Relationship Specialty Start Date End Date Katheryn Miles APRN PCP - General 05/30/19 Josue Rich, [place] [id number] documented as of this encounter
--- OUTSIDE RECORDS SUMMARY | 2021-07-04 08:14 | XMS_ITS | Encounter Summary ---
:1985 Author Organization [facility] Address [address] [place] [address] Care Team Providers Name Role Phone Katheryn Miles APRN Primary Care Provider [phone] Encounter Details Date Type Department Care Team Description 09/04/2019 Documentation [facility] Patti Garcia [address] [place], [place] [id number] Social History Tobacco Use Types Packs/Day Years [...] documented as of this encounter Progress Notes Patti Gregory - 09/04/2019 1:30 PM EST [facility] ??? Adult Outpatient Behavioral Health CASE MANAGEMENT Client Name: Shakila Grove Date: 09/04/19 Date of : 1985 Type of Service: Suboxone Induction Time of Service: 1:00pm Length of Service: 30 minutes Referral for Services: Previous Referrals: Contact: Previous Contact: Comments: This magnetic tape typewriter operator met with the client to introduce herself to the client and explain the vocational services provided by this magnetic tape typewriter operator. This magnetic tape typewriter operator completed the SPARS assessment with the client during induction. documented in this encounter Plan of Treatment Upcoming Encounters Date Type Specialty Care Team Description 07/08/2021 Appointment Behavioral Health Francisco Torres, MS W documented as of this encounter Visit Diagnoses Not on filedocumented in this encounter Care Teams Dental Specialist Relationship Specialty Start Date End Date Katheryn Miles APRN PCP - General 05/30/[address] [place] [address] [place] [address] documented as of this encounter
--- OUTSIDE RECORDS SUMMARY | 2021-07-04 08:14 | XMS_ITS | Encounter Summary ---
:[address] [facility] Address [address] [place] [address] Care Team Providers Name Role Phone Katheryn Miles APRN Primary Care Provider [phone] Encounter Details Date Type Department Care Team Description 09/03/2019 Documentation [facility] Deena Loera [address] [place], [place] [id number] Social History Tobacco Use Types Packs/Day Years [...] this encounter Progress Notes Deena Brooke - 09/03/2019 11:15 AM EST [facility]-CASE MANAGEMENT Client Name: Shakila Grove Date: 09/04/2019 Date of : 1985 Type of Service: Case Management Time of Service: 11:30am Length of Service: 15 mins Comments:Client was a walk-in for suboxone. Discussed with client how the program works. Plan: Client is schedule for induction on 09/04/2019 documented in this encounter Plan of Treatment Upcoming Encounters Date Type Specialty Care Team Description 07/08/2021 Appointment Behavioral Health Francisco Torres, W documented as of this encounter Visit Diagnoses Not on filedocumented in this encounter Care Teams Engineering Patternmaker Relationship Specialty Start Date End Date Katheryn Miles APRN PCP - General 05/30/[address] [place], [place] [address] [address] documented as of this encounter
--- OUTSIDE RECORDS SUMMARY | 2021-07-04 08:14 | XMS_ITS | Encounter Summary ---
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 Line in Control Window? Yes [facility] HE ALTH (+ Control) SYSTEM LAB Background Clear? (- Yes [facility] HEALT H Control) SYSTEM LAB Kit Lot [id number] [facility] SYSTEM LAB Expiration Date 04/07/2018 [facility] Specimen Urine specimen (specimen) - Urine Performing Organization Address [facility] Phon e Number [facility] Methadone confirmation, urine (YH) (03/08/2017 2:33 PM EDT) Methadone, Urine Positive for Negative [facility] Conf, GC/MS Methadone and HOSPITAL LABORATORY Methadone Metabolite (A) Specimen Urine specimen (specimen) Narrative [facility] - 2:02 PM EDT This test was developed and its performa nce characteristics determined by [facility]. It has not been cleared by the FDA. The laboratory is regulated under CLIA as qualified to perform high -complexity testing. This test is used f or clinical purposes. It should not be regarded as investigational or for research. Performing Organization Address [facility] Phon e Number [facility] DEPARTMENT OF LABORATORY [address] [place] [address] [phone] LABORATORY Amphetamine confirmation, urine (YH) (03/08/2017 2:33 PM EDT) Pathologist Sig nature Amphetamine TLC Conf Positive (A) Negative [facility] Specimen Urine specimen (specimen) Narrative [facility] - 11:32 AM EDT This test was developed and its performa nce characteristics determined by [facility]. It has not been cleared by the FDA. The laboratory is regulated under CLIA as qualified to perform high -complexity testing. This test is used f or clinical purposes. It should not be regarded as investigational or for research. Performing Organization Address [facility] Phon e Number [facility] DEPARTMENT OF LABORATORY [address] [place] [address] [phone] LABORATORY Cocaine, urine, confirmation (*LAB ORDER ONLY*) ([facility]) (03/08/2017 2:33 PM EDT) Cocaine GC/MS Conf Positive for Negative [facility] Cocaine metabolite HOSPITAL LABORATORY and cocaine (A) Specimen Urine specimen (specimen) Narrative [facility] - 2:02 PM EDT This test was developed and its performa nce characteristics determined by [facility]. It has not been cleared by the FDA. The laboratory is regulated under CLIA as qualified to perform high -complexity testing. This test is used f or clinical purposes. It should not be regarded as investigational or for research. Performing Organization Address [facility] Phon e Number [facility] DEPARTMENT OF LABORATORY [address] [place] [address] [phone] LABORATORY 9 Drug toxicology panel, urine, w/ conf. (03/08/2017 2:33 PM EDT) Amphetamine Screen, Positive (A) Negative [facility] Urine, w/ Conf. Comment: HOSPITAL Positive by screening method only. See confirmation re sult. LABORATORY This immunoassay is reported as positive if the reacti vity exceeds that of a 1000 ng/mL calibrator. Benzodiazepines Positive (A) Negative [place] Screen, Urine, No Comment: HOSPITAL Conf. This result is positive by a screening method and will not be LABORATORY confirmed (contact laboratory if desired). This immunoassay is reported as positive if the reacti vity exceeds that of a 200 ng/mL calibrator. Cannabinoids Screen, Positive (A) Negative [facility] [facility] Urine, No Conf. Comment: HOSPITAL This result is positive by a screening method and will not be LABORATORY confirmed (contact laboratory if desired). This immunoassay is reported as positive if the reacti vity exceeds that of a 50 ng/mL calibrator. Cocaine Screen, Urine, Positive (A) Negative [facility] w/ Conf. Comment: HOSPITAL Positive by screening method only. See confirmation re sult. LABORATORY This immunoassay is reported as positive if the reacti vity exceeds that of a 300 ng/mL calibrator. Opiates Screen, Urine, Negative Negative [facility] w/ Conf. Comment: HOSPITAL No confirmation is performed on specimens that are neg ative in LABORATORY the screening test. This immunoassay is reported as negative if the reacti vity is below that of a 300 ng/mL calibrator. Oxycodone Screen, Negative Negative [facility] Urine, w/ Conf. Comment: HOSPITAL No confirmation is performed on specimens that are neg ative in LABORATORY the screening test. This immunoassay is reported as negative if the reacti vity is below that of a 100 ng/mL calibrator. Phencyclidine (PCP) Negative Negative [facility] [facility] Screen, Urine, w/ Comment: HOSPITAL Conf. No confirmation is performed on specimens that a re negative in LABORATORY the screening test. This immunoassay is reported as negative if the reacti vity is below that of a 25 ng/mL calibrator. Drugs Of Abuse Note [place] Comment: HOSPITAL Formal chain of custody documentation not maintained o n LABORATORY clinical specimens. Results are intended for medical management purposes only. Methadone Metabolite Positive (A) Negative [facility] [facility] Screen, Urine, w/ Comment: HOSPITAL Conf. Positive by screening method only. See confirmation re sult. LABORATORY This immunoassay is reported as positive if the reacti vity exceeds that of a 300 ng/mL calibrator. Barbiturate Screen, Negative Negative [facility] Urine, No Conf. Comment: HOSPITAL LABORATORY This immunoassay is reported as negative if the reacti vity is below that of a 200 ng/mL calibrator. Specimen Urine specimen (specimen) Narrative [facility] - 07/2017 3:19 PM EDT This panel includes cocaine, opiate, [place]ent[place] zodiazepine, cannabinoid, PCP, amphetamine, methadone, barbiturate, and oxycodone as a screen and confirmation for any positives. Confirmations require a minimum of 1 wee k for completion. Performing Organization Address City/State/ZIP Code [facility] e Number [facility] DEPARTMENT OF LABORATORY [address] [place] [address] [address] [address], [facility] [phone] LABORATORY documented in this encounter Visit Diagnoses Diagnosis Polysubstance dependence (HC Code) Combinations of drug dependence excludin g opioid type drug, unspecified Substance induced mood disorder (HC Code ) Drug-induced mood disorder documented in this encounter Administered Medications Inactive Administered Medications - up to 3 most recent administrations Medication Order MAR Action Action Date Dose Rate Site ALPRAZolam (XANAX) tablet 0.25 Given 03/13/2017 8:06 AM EDT 0.2 5 mg mg 0.25 mg, Oral, 2 TIMES DAILY PRN, anxiety, Starting on Tue03/11/17 at 1324, Common Side Effects: Confusion, dizziness, drowsiness, mood changes. Given 03/12/2017 9:24 AM EDT 0.25 mg ALPRAZolam (XANAX) tablet 0.25 mg Given 03/13/2017 8:40 PM EDT 0.25 mg 0.25 mg, Oral, DAILY PRN, anxiety, Starting on Tue03/13/17 at 1300, Common Side Effects: Confusion, dizziness, drowsiness, mood changes. ALPRAZolam (XANAX) tablet 0.5 mg Given 03/11/2017 10:09 AM EDT 0.5 mg 0.5 mg, Oral, 2 TIMES DAILY PRN, anxiety, Starting on Tue03/08/17 at 1454, Common Side Effects: Confusion, dizziness, drowsiness, mood changes. Given 03/10/2017 2:09 PM EDT 0.5 mg Given 03/10/2017 8:09 AM EDT 0.5 mg methadone (DOLOPHINE) 5 mg/5 mL oral solution Given 2:33 PM EDT 30 mg 30 mg 30 mg, Oral, ONCE, On Tue03/08/17 at 1330, For 1 dose, Dose confirmed with [facility], last dose given there 03/07. methadone (DOLOPHINE) 5 mg/5 mL oral solution Given 6:07 AM EDT 30 mg 30 mg 30 mg, Oral, Daily @0600, First dose on Tue03/09/17 at 0600, For 12 doses Given 03/13/2017 6:16 AM EDT 30 mg Given 03/12/2017 6:07 AM EDT 30 mg nicotine (NICODERM CQ) Patch Applied 03/14/2017 1:46 PM EDT 21 mg Left Arm transdermal patch 24 hr 21 mg 21 mg, Transdermal, Administer over 24 Hours, Daily, First dose on Tue03/14/17 at 1330 nicotine polacrilex (COMMIT) lozenge 2 m g 2 mg, Oral, EVERY 2 HOURS PRN, smoking c essation, Starting on Tue03/14/17 at 1318, Allow the lozenge to slowly dissolve in mouth (about 2 0-30 minutes). Minimize swallowing. Do not chew or swallow lozenge. Dispose pa rtially used, medication and all packaging (vial, syringe, tubing) e bo if empty in the black RCRA container. OLANZapine zydis (ZyPREXA) disintegrating Given 03/09/2017 8:14 AM EDT 5 mg tablet 5 mg 5 mg, Oral, EVERY 8 HOURS PRN, agitation/psychosis, Starting on Tue03/08/17 at 1429 Given 03/08/2017 2:33 PM EDT 5 mg perphenazine tablet 16 mg Given 03/13/2017 8:40 PM EDT 16 mg 16 mg, Oral, Nightly, First dose on Tue03/12/17 at 2200 Given 03/12/2017 9:17 PM EDT 16 mg perphenazine tablet 4 mg Given 03/14/2017 1:50 PM EDT 4 mg 4 mg, Oral, 2 TIMES DAILY PRN, anxiety/agitation, Starting on Tue03/11/17 at 1327 perphenazine tablet 8 mg Given 03/11/2017 9:07 AM EDT 8 mg 8 mg, Oral, 2 Times Daily Scheduled, First dose on Tue03/09/17 at 2100 Given 03/10/2017 8:49 PM EDT 8 mg Given 03/10/2017 12:26 PM EDT 8 mg perphenazine tablet 8 mg Given 03/11/2017 8:58 PM EDT 8 mg 8 mg, Oral, Nightly, First dose (after last modification) on Tue03/11/17 at 2200, For 1 dose documented in this encounter Active and Recently Administered Medications Times are shown in EDT. Scheduled Medication Order 03/12/2017 03/13/2017 03/14/2017 methadone (DOLOPHINE) 5 mg/5 mL oral solution 30 mg 06 07 (Given - Provider: Gideon Perez, RN) 0616 (Given - Provider: Dulce Hatfield, ANITA) 0 607 (Given - Provider: Cynthia Olguin, ANITA) 30 mg, Oral, Daily @0600, First dose on Tue03/09/17 at 0600, For 12 doses nicotine (NICODERM CQ) transdermal patch 24 hr 21 mg 1346 (Patch Applied - Provider: Susan Saldivar, ANITA) 21 mg, Transdermal, Administer over 24 H ours, Daily, First dose on 03/14/17 at 1330 perphenazine tablet 16 mg 2116 (Given - Provider: Brent moon, ANITA) 2039 (Given - Provider: Mariposa Sung, ANITA) 16 mg, Oral, Nightly, First dose on Tue03/12/17 at 2200 PRN Medication Order 03/12/2017 03/13/2017 03/14/2017 ALPRAZolam (XANAX) tablet 0.25 mg (CANCELED) 09 (Giv en - Provider: Susan Saldivar, ANITA) 08 (Given - Provider: Susan Saldivar, ANITA) 0.25 mg, Oral, 2 TIMES DAILY PRN, Anxiet y, Starting Tue03/11/17 at 1324, Common Side Effects: Confusion, dizziness, drowsiness, mood changes. ALPRAZolam (XANAX) tablet 0.25 mg (CANCELED) 2039 (Given - Provider: Mariposa Sung, ANITA) 0.25 mg, Oral, DAILY PRN, Anxiety, Start ing Tue03/13/17 at 1300, Common Side Effects: Confusion, dizziness, drowsiness, mood changes. nicotine polacrilex (COMMIT) lozenge 2 mg 2 mg, Oral, EVERY 2 HOURS PRN, Smoking c essation, Starting 03/14/17 at 1318, Allow the lozenge to slowly dissolve in mouth (about 20-30 minutes). Minimize swallowing. Do not chew or swallow lozenge. Dispose partially used, medicati on and all packaging (vial, syringe, tubing) even if empty in the black RCRA container. perphenazine tablet 4 mg 1350 (G iven - Provider: Susan Saldivar RN) 4 mg, Oral, 2 TIMES DAILY PRN, anxiety/agitation, Starting F ri 03/11/17 at 1327 documented in this encounter Care Teams Embroiderer Relationship Specialty Start Date End Date Pcp, No PCP - General 03/08/17 05/29/19 documented as of this encounter
[2021-07-04] MEDS: Methadone Liquid 10 MG/ML 80 MG PO (08:37)
[2021-07-04 08:40] VITALS: BP 138/82; PULSE 70; RESP 16; TEMP 36.4; O2SAT 99
== END 2021-07-04 08:40 | disposition home or self-care (01) ==
PROVIDERS: Emergency Provider Physician Assistant
DX: F11.20 Opioid dependence, uncomplicated (principal); R03.0 Elevated blood-pressure reading, without diagnosis of hypertension
CPT/HCPCS: 81025; 99283

== ENCOUNTER 2021-07-05 06:56 | Emergency (ER) | payer SELFPAY ==
[2021-07-05 07:02] VITALS: BP 134/81; PULSE 84; RESP 18; TEMP 36.7; O2SAT 100
--- NOTE | 2021-07-05 07:03 | W.ED.GENAD ---
Discharge Plan Disposition Patient Disposition: HOME Condition: Good Discharge Details Clinical Impression: Methadone dependence Primary Care Provider: None,None ED Provider: Arvind Lu Home Meds and New Rx's Prescriptions: Continued methadone 10 mg/mL Concentrate 80 mg PO DAILY RF: 0 Discharge Instructions Additional Instructions: Please follow-up at the methadone clinic tomorrow for your regular methadone dosing. In the future with travel the methadone clinic can help set up outpatient services at the locations that you may be traveling to. This may be helpful in the future when traveling to locations outside of your regular dispensary area. If you notice any worsening of your symptoms, or any new symptoms such as vomiting, diarrhea, fever, chills, shortness of breath, chest pain, numbness, weakness, or fainting , please return immediately to the emergency department for reevaluation. Please follow up with your primary care provider as soon as possible for reassessment and reevaluation. As always, it was a pleasure participating in your medical care today. Medical Decision Making Patient presents today for withdrawals from methadone. She recently traveled and is not close to her dispensary. She was here yesterday and received 80 mg of methadone as confirmed by her clinic down in [place]. Patient has no other complaints at time. Patient will be given her confirm dose of 80 mg of methadone. I did make it clear to the patient that as your clinic is open tomorrow that would be her best option for receiving methadone. Discussed red flags which to return. I have extensively reviewed the treatment plan and discharge instructions with the patient. I have addressed all patient concerns at this time. The patient was made aware of what symptoms to monitor for that would warrant a return to the emergency department. Discussed the plan with the patient, they demonstrate verbal understanding and agreement with our assessment and plan at this time. The documentation in this chart was dictated using [employer] dictation software. Please excuse any dictation errors. HPI General Date/Time Provider Initiated Documentation: 07/05/21 06:57. HPI Narrative: Patient presents today for withdrawals from methadone. She recently traveled and is not close to her dispensary. She was here yesterday and received 80 mg of methadone as confirmed by her clinic down in [place]. Patient has no other complaints at time. Related Data Home Medications Medication Instructions Recorded Confirmed methadone 80 mg PO DAILY 07/04/21 07/04/21 Allergies Allergy/AdvReac Type Severity Reaction Status Date / Time No Known Allergies Allergy Unverified 07/04/21 07:36 General MICHELLE: 4 Review of Systems All systems reviewed & are unremarkable except as noted in HPI and below PFSH Medical History Methadone dependence Narcotic abuse in remission Surgical History No significant past surgical history Social History Smoking/Tobacco Use Status: Current every day Tobacco Type: cigarettes Smoking risk assessment performed?: Yes Alcohol Intake: current Alcohol Intake frequency: a few times a month Drug use: Occasionally Substance use type: marijuana Details: in a methadone program Exam Narrative Exam Narrative: 1.Const: Well-nourished, Well-developed, appearing stated age 2.Eyes: PERRL, no conjunctival injection, and symmetrical lids. 3.ENT: Atraumatic external nose and ears. Moist MM. Neck: Symmetric, trachea midline, No thyromegaly. 4.CVS: +S1/S2, No murmurs or gallops. Peripheral pulses 2+ and equal in all extremities. Brisk capillary refill in all extremities. 5.RESP: Unlabored respiratory effort. Clear to auscultation bilaterally. No wheezes rales or rhonchi 6.GI: Soft, Nontender/Nondistended, No hepatosplenomegaly. No guarding or rebound. 7.MSK: Normocephalic/Atraumatic, Extremities w/o deformity or ttp No cyanosis or clubbing, Normal movement of all extremities 8.Skin: Warm, Dry. No rashes or lesions. 9.Neuro: it technical specialist II-XII grossly intact. Sensation grossly intact, no focal neurologic deficits. 10.Psych: (AAO) x3. Appropriate mood and affect
[2021-07-05] MEDS: Methadone Liquid 10 MG/ML 80 MG PO (07:33)
== END 2021-07-05 07:38 | disposition home or self-care (01) ==
PROVIDERS: Emergency Provider Student in an Organized Health Care Education/Training Program
DX: F11.20 Opioid dependence, uncomplicated (principal)
CPT/HCPCS: 99283

== ENCOUNTER 2022-09-20 15:13 | Emergency (ER) | payer OTHER, SELFPAY ==
[2022-09-20 15:18] VITALS: BP 145/92; PULSE 73; RESP 16; TEMP 37; O2SAT 100
--- NOTE | 2022-09-20 15:30 | ED.GENADUL_ITS ---
Discharge Plan Disposition Patient Disposition: Home Condition: Stable Discharge Details Clinical Impression: Encounter for medication administration, Methadone dependence Primary Care Provider: None,None ED Provider: Claudia Marx Home Meds and New Rx's Prescriptions: Continued methadone 10 mg/mL Concentrate 65 mg PO DAILY Discharge Instructions Instructions: Methadone (By mouth) Additional Instructions: You were given a dose of 65mg of oral methadone today in the emergency department. Please call the [facility] in [place], [place] at [phone] tomorrow to determine if you are able to receive your methadone dose there tomorrow if needed. Please follow up at the [facility] on Tuesday to resume your regularly scheduled methadone dosing. Discharge Data Discharge Date/Time-TO BE ENTERED AT DEPARTURE: 09/20/22 16:22 Discharge Physician: Claudia Marx Medical Decision Making 36yo F with a history of narcotic abuse in remission on methadone for approximately 5 years who receives her methadone dosing at a clinic in [place] presents for dosage for today. She reports she last received a dose on Tuesday at the clinic and was given 2 doses to go for Tuesday and Tuesday. She is traveling back to [place] on Tuesday. We called the [facility] in [place], [place] to confirm her dosing. She is hemodynamically stable and appears comfortable and in no acute distress without signs of withdrawal. I spoke with Rodney Alejo,director at [facility] with [facility] and he confirmed her dosing to be 65mg daily. He states she received 3 bottles to go over the weekend for 55mg Tuesday, 60mg Tuesday and 65mg Tuesday with plan to start her on 65 mg daily. We will order a dose of 65 mg methadone now. I called the pharmacy and spoke with pharmacist Barbara who will send the methadone dose to the ED. I had planned to give her a dose to go for tomorrow as she does not return to [place] until Tuesday but per discussion with Barbara, it is not recommended to give any dosing to go and patient should follow-up with [facility] tomorrow. Pt was given number for [facility] to call tomorrow to determine if she can receive her dose there tomorrow. Patient is instructed to follow-up with her clinic in [place] on Tuesday to resume her regularly scheduled dosing. Medical Records Medical records reviewed: Yes I reviewed the patient's medical records. Sign Out No HPI General Mode of arrival: ambulatory . Date/Time Provider Initiated Documentation: 09/20/22 15:20 . Limitations to Documentation: no limitations . Information obtained by: patient . HPI Narrative: Pt is a 36yo F w/ h/o narcotic abuse in remission who presents with request for methadone dose for today. Pt states she has been on methadone for almost 5 years and receives 65mg methadone daily from [facility] in [place], [place]. She states she received her doses for this past Tuesday and Tuesday but did not anticipate staying longer and will not be going back there until Tuesday and needs a dose for today. She denies any other alcohol or drug use. She denies fever, headache, chest pain, shortness of breath, nausea, vomiting, abdominal pain. Related Data Home Medications Medication Instructions Recorded Confirmed methadone 10 mg/mL oral concentrate 65 mg PO DAILY 07/04/21 09/20/22 Allergies Allergy/AdvReac Type Severity Reaction Status Date / Time No Known Allergies Allergy Unverified 07/05/21 07:07 General Stated Complaint: GenMedical MICHELLE: 4 Review of Systems All systems reviewed & are unremarkable except as noted in HPI and below Constitutional Constitutional: Reports as per HPI, Denies chills and Denies fever(s) Eyes Eyes: Denies blurry vision ENT Ears, Nose, Mouth, and Throat: Denies dizziness, Denies sore throat and Denies throat swelling Cardiovascular Cardiovascular: Denies chest pain and Denies dyspnea Respiratory Respiratory: Denies cough and Denies dyspnea Gastrointestinal Gastrointestinal: Denies abdominal pain, Denies diarrhea and Denies vomiting Genitourinary Genitourinary: Denies hematuria and Denies dysuria Musculoskeletal Musculoskeletal: Denies back pain and Denies numbness Integumentary/Breasts Skin/Breast: Denies lesions and Denies rash Neurologic Neurologic: Denies dizziness, Denies localized weakness and Denies numbness Allergic/Immunologic Allergic/Immunologic: Denies throat swelling PFSH All Active Problems (Updated 09/20/22 @ 16:04 by Claudia Marx DO) Methadone dependence (Acute) Encounter for medication administration (Acute) Methadone dependence (Acute) Medical History Methadone dependence Narcotic abuse in remission Surgical History No significant past surgical history Social History Smoking/Tobacco Use Status: Current every day Tobacco Type: cigarettes Smoking risk assessment performed?: Yes Alcohol Intake: current Alcohol Intake frequency: a few times a month Drug use: Occasionally Substance use type: marijuana Details: in a methadone program Do you feel safe at home: Yes Do you feel safe in your relationship?: Yes Exam Const General: cooperative and no acute distress Orientation: alert, awake and oriented x3 HENMT Head: normal to inspection Mouth: oral mucosae normal Eyes General: appearance normal, both eyes and all related structures Neck Neck: normal visual inspection Resp Effort & Inspection: normal respiratory effort and able to speak in complete sentences Auscultation: clear to auscultation bilaterally Cardio Rate: regular rate Rhythm: regular rhythm Skin General skin exam: no rashes or lesions noted Neuro General: patient alert, patient awake and patient oriented x3 Motor: muscle tone normal throughout Extrem General: normal to inspection and full ROM Psych Appearance: grossly normal Affect: normal affect Course Vital Signs Vital signs: Vital Signs Temperature 98.6 F 09/20/22 15:18 Pulse 73 09/20/22 15:18 Respiratory Rate 16 09/20/22 15:18 Blood Pressure 145/92 H 09/20/22 15:18 Pulse Oximetry 100 09/20/22 15:18 Temperature 98.6 F 09/20/22 15:18 Temperature Source Skin 09/20/22 15:18 Pulse 73 09/20/22 15:18 Respiratory Rate 16 09/20/22 15:18 Respiratory Effort Non-Labored 09/20/22 15:22 Blood Pressure 145/92 H 09/20/22 15:18 Blood Pressure Position Sitting 09/20/22 15:18 Pulse Oximetry 100 09/20/22 15:18 Oxygen Delivery Method Room Air 09/20/22 15:18 Oxygen Flow Rate 0 09/20/22 15:18
[2022-09-20] MEDS: Methadone Liquid 10 MG/ML 65 MG PO (16:17)
--- NOTE | 2022-09-20 16:35 | PHACLINREV_ITS ---
Pharmacy Admission Review - Admission Clinical Review (Last Reviewed 07/05/21 @ 07:06 by Arvind Lu DO) Encounter for medication administration (Acute) Methadone dependence (Acute) No Known Allergies Allergy (Unverified 07/05/21 07:07) - Comments Comments/Follow Ups: A one time dose was provided to the patient and administered by the RN. The dose was verified with the patient's clinic and provider in [place] and she also provided the empty bottles for further verification. I informed the provider and nursing staff that we can only dispense methadone to patients we are treating for other acute reasons hindering their ability to go to their regular clinic thus potentially precipitating withdrawal. Per the [place] a physician is authorized to administer ?narcotic drugs to a person. for the purpose of relieving acute withdrawal symptoms when necessary while arrangements are being made for referral for treatment, even if that physician is not registered as a Narcotic Treatment Program (NTP). A limitation of this regulation includes that ?not more than one day?s medication may be administered to the person or for the person?s use at one time. Such emergency treatment may be carried out for not more than three days and may not be renewed or extended.? Given [facility] clinic is closed at this point in the day and will not reopen until tomorrow morning and the patient has not taken a dose yet today, it was determined that it is in the patient's best interest to receive a dose here tonight but they will have to follow up with [facility] tomorrow morning for any further doses.
== END 2022-09-20 16:22 | disposition home or self-care (01) ==
PROVIDERS: Emergency Provider Physician Assistant
DX: F11.20 Opioid dependence, uncomplicated (principal)
CPT/HCPCS: 99283